=== PATIENT | male | born 1965 | race American Indian/Alaskan Native ===

== ENCOUNTER 2020-03-17 22:51 | Inpatient (IN) | payer BC ==
[2020-03-18] MEDS ORDERED: ACETAMINOPHEN 325 MG TAB ONE (00:36)
[2020-03-18] MEDS ORDERED: ACETAMINOPHEN 325 MG TAB PO ONE (00:36)
--- NOTE | 2020-03-18 01:35 | XRay Report ---
CHEST 1 VIEW INDICATION / CLINICAL INFORMATION: Chest Pain. COMPARISON: None available. FINDINGS: SUPPORT DEVICES: None. HEART / MEDIASTINUM: No significant abnormality. LUNGS / PLEURA: Scattered bilateral pulmonary opacities are present, nonspecific. Certainly, viral pn eumonia is a strong consideration. No pneumothorax. ADDITIONAL FINDINGS: No significant additional findings. IMPRESSION: 1. Bilateral scattered pulmonary opacities. This is certainly worrisome for viral pneumonia and clin ical correlation is recommended. Signer Name: Erika Snow MD Signed: 03/18/2020 1:30 AM Workstation Name: [id number]
[2020-03-18 02:15] LABS: Alanine Aminotransferase 13 units/L (7-56); Albumin 3.9 g/dL (3.9-5); BUN/Creatinine Ratio 16; Blood Urea Nitrogen 21 mg/dL (9-20); Calcium 8.2 mg/dL (8.4-10.2); Hemolysis Index 11
[2020-03-18 02:17] LABS: Basophils % (Auto) 0.4 % (0.0-1.8); Hematocrit 46.8 % (35.5-45.6); Hemoglobin 14.9 gm/dl (11.8-15.2); Lymphocytes # (Auto) 0.7 K/mm3 (1.2-5.4); Lymphocytes % (Auto) 16.1 % (13.4-35.0); Mean Corpuscular HGB Conc 32 % (32-34); Mean Corpuscular Volume 71 fl (84-94); Monocytes # (Auto) 0.4 K/mm3 (0.0-0.8); Monocytes % (Auto) 10.7 % (0.0-7.3); Platelet Count 94 K/mm3 (140-440); Red Blood Count 6.56 M/mm3 (3.65-5.03)
--- NOTE | 2020-03-18 02:21 | Emergency Department Report ---
ED Shortness of Breath HPI - General Chief Complaint: Upper Respiratory Infection Stated Complaint: TROUBLE BREATHING Time Seen by Provider: 03/18/20 02:14 Source: patient Mode of arrival: Ambulatory Limitations: No Limitations - History of Present Illness Initial Comments: 54-year-old male, history of hypertension and diabetes, presents to ED with Covi d-like symptoms. Patient reports fever, body aches, cough, shortness of breath, chest pain x2 days. 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 Patient has not been tested for Covid. He denies any vomiting or diarrhea. MD Complaint: shortness of breath -: days(s) (2) Severity: moderate Consistency: constant Improves With: rest Worsens With: exertion Context: recent URI Associated Symptoms: chest pain, fever, cough Treatments Prior to Arrival: none - Related Data Home Oxygen Therapy: No Home Medications Medication Instructions Recorded Confirmed Last Taken Amlodipine Besylate 10 mg PO DAILY 10/06/15 05/11/18 02/28/18 Clonidine HCl [Kapvay] 0.1 mg PO DAILY 10/06/15 10/27/15 10/26/15 Metformin HCl 500 mg PO DAILY 10/06/15 05/11/18 02/28/18 Allergies Allergy/AdvReac Type Severity Reaction Status Date / Time iodine AdvReac Severe Swelling Verified 10/06/15 10:59 IOD AdvReac Severe Swelling Uncoded 10/06/15 10:59 SEAFOOD AdvReac Severe Swelling Uncoded 10/06/15 10:59 ED Review of Systems ROS: Stated complaint: TROUBLE BREATHING Other details as noted in HPI Comment: All other systems reviewed and negative Constitutional: fever Respiratory: cough, shortness of breath Cardiovascular: chest pain Gastrointestinal: denies: vomiting, diarrhea Musculoskeletal: myalgia ED Past Medical Hx - Past Medical History Hx Hypertension: Yes Hx Diabetes: Yes Hx GERD: Yes - Surgical History Hx Appendectomy: Yes (1977) - Social History Smoking Status: Never Smoker Substance Use Type: None - Medications Home Medications: Home Medications Medication Instructions Recorded Confirmed Last Taken Type Amlodipine Besylate 10 mg PO DAILY 10/06/15 05/11/18 02/28/18 History Clonidine HCl [Kapvay] 0.1 mg PO DAILY 05/31/16 06/21/16 06/20/16 History Metformin HCl 500 mg PO DAILY 10/06/15 05/11/18 02/28/18 History ED Physical Exam - General Limitations: No Limitations General appearance: alert, in no apparent distress - Head Head exam: Present: atraumatic, normocephalic - Eye Eye exam: Present: normal appearance - ENT ENT exam: Present: mucous membranes moist - Neck Neck exam: Present: normal inspection - Respiratory Respiratory exam: Present: normal lung sounds bilaterally. Absent: respiratory distress - Cardiovascular Cardiovascular Exam: Present: normal rhythm, tachycardia - GI/Abdominal GI/Abdominal exam: Present: soft. Absent: distended, tenderness - Extremities Exam Extremities exam: Present: normal inspection - Neurological Exam Neurological exam: Present: alert, oriented X3 - Psychiatric Psychiatric exam: Present: normal affect, normal mood - Skin Skin exam: Present: warm, dry, intact, normal color ED Course Vital Signs 03/18/20 03/18/20 03/18/20 00:32 02:30 03:19 Temperature 101.0 F H 98.6 F Pulse Rate 103 H 97 H Respiratory 16 18 20 Rate Blood Pressure 143/74 Blood Pressure 146/83 [Right] O2 Sat by Pulse 94 97 92 Oximetry ED Medical Decision Making - Lab Data Result diagrams: 03/18/20 01:10 03/18/20 02:51 - EKG Data -: EKG Interpreted by Mt EKG shows normal: sinus rhythm, axis, intervals, QRS complexes Rate: normal - EKG Data Interpretation: other (Flattened T waves diffusely) - Radiology Data Radiology results: report reviewed, image reviewed - Medical Decision Making 54-year-old male presents to ED with Covid-like symptoms. Chest x-ray shows bilateral pneumonia. Patient O2 sats 92% on room air. He is in no respiratory distress. Patient given Rocephin, azithromycin, Decadron. He will be admitted to hospitalist for further management. - Differential Diagnosis COVID-19, pneumonia, ACS Critical care attestation.: If time is entered above; I have spent that time in minutes in the direct care of this critically ill patient, excluding procedure time. ED Disposition Clinical Impression: Hypokalemia, Hypoxia, Pneumonia, Suspected COVID-19 virus infection Disposition: OP ADMIT IP TO THIS HOSP Is pt being admited?: Yes Condition: Stable Time of Disposition: 03:38
[2020-03-18] MEDS ORDERED: POTASSIUM CHLORIDE ER 20 MEQ TAB PO ONE (02:27)
[2020-03-18] MEDS ORDERED: cefTRIAXone/NS 1 GM/50 ML 1 GM/50 ML BAG IV ONE (02:43)
[2020-03-18] MEDS ORDERED: AZITHROMYCIN 250 MG TAB PO ONE (02:43)
[2020-03-18] MEDS ORDERED: DEXAMETHASONE 4 MG TAB PO ONE (03:35)
--- NOTE | 2020-03-18 03:49 | History and Physical Report ---
History of Present Illness Date of examination: 03/18/20 Date of admission: 03/18/20 Chief complaint: shortness of breath History of present illness: This is a 54-year-old male who presents to ED with Covid-like symptoms including shortness of breath. He has history of hypertension and diabetes. Patient reports fever, body aches, cough, shortness of breath, chest pain for 2 days. 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 Patient has not been tested for Covid. patient seen at bedside. he denies tobacco and illicit drug use. He denies any vomiting or diarrhea. ED Work up shows: WBC 4.2, hemoglobin 14.9, potassium 2.9, sodium 137, C02 25, Cr 1.3 and troponin 0.010 Chest x-ray shows-Bilateral scattered opacity likely 2/2 to viral PNA Past History Past Medical History: diabetes, hypertension Past Surgical History: No surgical history Social history: no significant social history Family history: no significant family history Medications and Allergies Allergies Allergy/AdvReac Type Severity Reaction Status Date / Time iodine AdvReac Severe Swelling Verified 10/06/15 10:59 IOD AdvReac Severe Swelling Uncoded 10/06/15 10:59 SEAFOOD AdvReac Severe Swelling Uncoded 10/06/15 10:59 Home Medications Medication Instructions Recorded Confirmed Last Taken Type Amlodipine Besylate 10 mg PO DAILY 10/06/15 05/11/18 02/28/18 History Clonidine HCl [Kapvay] 0.1 mg PO DAILY 10/06/15 10/27/15 10/26/15 History Metformin HCl 500 mg PO DAILY 10/06/15 05/11/18 02/28/18 History Review of Systems Respiratory: cough, shortness of breath, respiratory infections Exam - Constitutional Vitals: Temp Pulse Resp BP Pulse Ox 98.6 F 97 H 20 146/83 92 03/18/20 02:30 03/18/20 02:30 03/18/20 03:19 03/18/20 02:30 03/18/20 03:19 General appearance: Present: mild distress - EENT Eyes: Present: PERRL ENT: hearing intact, clear oral mucosa - Neck Neck: Present: supple, normal ROM - Respiratory Respiratory effort: normal, other (cough and shortness of breath) Respiratory: bilateral: diminished - Cardiovascular Heart rate: 87 Heart Sounds: Present: S1 & S2. Absent: rub, click - Extremities Extremities: pulses symmetrical, No edema Peripheral Pulses: within normal limits - Abdominal General gastrointestinal: Present: soft, non-tender, non-distended, normal bowel sounds Male genitourinary: Present: normal - Integumentary Integumentary: Present: clear, warm, dry - Musculoskeletal Musculoskeletal: gait normal, strength equal bilaterally - Psychiatric Psychiatric: appropriate mood/affect, intact judgment & insight - Neurologic Neurologic: CNII-XII intact, moves all extremities - Allied Health Allied health notes reviewed: nursing HEART Score - HEART Score Troponin: Troponin T < 0.010 ng/mL (0.00-0.029) 03/18/20 01:10 Results - Labs CBC & Chem 7: 03/18/20 01:10 03/18/20 02:51 Labs: Abnormal lab results 03/18/20 03/18/20 Range/Units 01:10 01:10 WBC 4.2 L (4.5-11.0) K/mm3 RBC 6.56 H (3.65-5.03) M/mm3 Hct 46.8 H (35.5-45.6) % MCV 71 L (84-94) fl MCH 23 L (28-32) pg Plt Count 94 L (140-440) K/mm3 [place] % (Auto) 10.7 H (0.0-7.3) % Lymph # (Auto) 0.7 L (1.2-5.4) K/mm3 Seg Neutrophils % 72.8 H (40.0-70.0) % Potassium 2.9 L* (3.6-5.0) mmol/L Chloride 96.5 L (98-107) mmol/L BUN 21 H (9-20) mg/dL Calcium 8.2 L (8.4-10.2) mg/dL Assessment and Plan - Patient Problems (1) Hypokalemia Current Visit: Yes Status: Acute Plan to address problem: replete potassium Am lab-monitor electrolytes (2) Hypoxia Current Visit: Yes Status: Acute Plan to address problem: likely 2/2 to respiratory infection/Viral/bacteria oxygen supplement PRN-seen on room air ABG and bronchodilators Encourage incentive spirometer (3) Pneumonia Current Visit: Yes Status: Acute Plan to address problem: ? cause Covid virus/bacteria Consult ID Start Azithromycin and rocephine Check inflammatory makers (4) Suspected COVID-19 virus infection Current Visit: Yes Status: Acute Plan to address problem: check covid virus [id number] with result Consult ID-will consult investigative research specialist if positive for covid Check inflammatory makers-didimer, CRP, LDH and ferritin Will start experimental therapy for covid if needed (5) Essential (primary) hypertension Current Visit: Yes Status: Acute Plan to address problem: Monitor blood pressure resume home bp med Adjust for optimum bp control (6) Diabetes Current Visit: Yes Status: Acute Plan to address problem: monitor blood sugar with SSI Hold metformin-resume post D/c Check HGA1c (7) DVT prophylaxis Current Visit: Yes Status: Acute Plan to address problem: sq Lovenox
[2020-03-18] MEDS ORDERED: amLODIPine 5 MG TAB PO ONE (03:52)
[2020-03-18 04:13] LABS: C-Reactive Protein 2.5 mg/dL (0.00-1.30)
[2020-03-18] MEDS ORDERED: ALUM-MAG HYDROXIDE-SIMETHICONE 200-200-20MG/5ML ORAL LIQD 30 ML PO PRN (04:27)
[2020-03-18] MEDS ORDERED: ONDANSETRON 4 MG/2 ML INJ IV PRN (04:27)
[2020-03-18] MEDS ORDERED: traMADol 50 MG TAB PO PRN (04:29)
[2020-03-18] MEDS ORDERED: DEXAMETHASONE 4 MG TAB ONE (05:15)
[2020-03-18] MEDS ORDERED: amLODIPine 5 MG TAB ONE (05:15)
[2020-03-18] MEDS: INSULIN LISPRO 100 UNIT/ML VIAL 3 mL SUB-Q SCH ×2 (07:54→12:07)
[2020-03-18] MEDS ORDERED: ENOXAPARIN 60 MG/0.6 ML INJ SUB-Q SCH (10:00)
[2020-03-18] MEDS ORDERED: cloNIDine 0.1 MG TAB ONE (11:58)
[2020-03-18] MEDS ORDERED: ENOXAPARIN 40 MG/0.4 ML INJ SUB-Q ONE (11:58)
[2020-03-18] MEDS ORDERED: INSULIN LISPRO 100 UNIT/ML VIAL 3 mL SUB-Q ONE (12:00)
[2020-03-18] MEDS: cloNIDine 0.1 MG TAB PO SCH (12:07)
[2020-03-18] MEDS: ENOXAPARIN 40 MG/0.4 ML INJ SUB-Q SCH (12:08)
--- NOTE | 2020-03-18 14:40 | Event Note ---
Date: 03/18/20 Patient seen and examined, resting comfortable. No new complaints. Continues on oxygen. Will monitor Plt due to thrombocytopenia, Patient advised of COVID19 testing result. Repeat Potassium studies Pending. Will continue to monitor closely.
[2020-03-18] MEDS ORDERED: cefTRIAXone/NS 1 GM/50 ML 1 GM/50 ML BAG IV SCH (15:00)
[2020-03-18] MEDS ORDERED: PNEUMOCOCCAL 23 Valent 0.5 ML VIAL IM ONE (20:12)
[2020-03-18] MEDS ORDERED: AZITHROMYCIN 500 MG in SODIUM CHLORIDE 0.9% 250ML 250 ML IV SCH (22:00)
[2020-03-18] MEDS: traZODone 50 MG TAB PO SCH (22:35)
[2020-03-19] MEDS: INSULIN LISPRO 100 UNIT/ML VIAL 3 mL SUB-Q SCH ×5 (00:14→22:25)
[2020-03-19] MEDS: cefTRIAXone/NS 2 GM/100 ML 2 GM/100 ML BAG IV SCH ×2 (00:20→21:05)
[2020-03-19 03:08] LABS: Bilirubin,Urine NEG (Negative); Blood,Urine LG (Negative); Color,Urine Amber (Yellow); Mucus,Urine FEW /HPF
[2020-03-19 03:09] LABS: Protein,Urine >500 mg/dL (Negative)
[2020-03-19 06:21] LABS: Hematocrit 44.5 % (35.5-45.6); Hemoglobin 14.1 gm/dl (11.8-15.2); Mean Corpuscular HGB Conc 32 % (32-34); Mean Corpuscular Volume 71 fl (84-94); Red Blood Count 6.24 M/mm3 (3.65-5.03)
[2020-03-19 06:35] LABS: Platelet Count 91 K/mm3 (140-440)
[2020-03-19 06:39] LABS: BUN/Creatinine Ratio 22; Blood Urea Nitrogen 24 mg/dL (9-20); Calcium 7.8 mg/dL (8.4-10.2); Hemolysis Index 11
--- NOTE | 2020-03-19 08:57 | Progress Note ---
Assessment and Plan Assessment and plan: This is a 54-year-old male who presents to ED with Covid-like symptoms including shortness of breath. He has history of hypertension and diabetes. Patient reports fever, body aches, cough, shortness of breath, chest pain for 2 days. 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 Patient has not been tested for Covid. patient seen at bedside. he denies tobacco and illicit drug use. He denies any vomiting or diarrhea. ED Work up shows: WBC 4.2, hemoglobin 14.9, potassium 2.9, sodium 137, C02 25, Cr 1.3 and troponin 0.010 Chest x-ray shows-Bilateral scattered opacity likely 2/2 to viral PNA COVID19 TESTING + 03/19: Continue supportive care, pulmonary consult considering respiratory distress on room air. await ID input on possible Remdesivir considering shortage. Replace Potassium, continue to monitor thrombcytopenia COVID19 Pneumonia Hypoxic Respiratory Failure- Acute. Currently on 2 Liters Tachycardia ?deconditioning vs Pulmonary disease contribution Hypokalemia- Replace. Hypertension Morbid Obesity DM type 2 Plan Supportive care Continue steroids, Monitor oxygen saturation for possible initation of Remdesivir and Pulm consult ID consult and Antibiotics recommendations Continue to monitor inflammatory markers Weight loss counselling Accucheck considering steroids as mainstay therapy, currently on low dose sliding scale. Patient on metformin outpatient DVT/GI prophy Plan of care discussed with patient Encouraged ambulation in the room and ambient oxygen monitoring with daily 6 mins walk with nursing or RT History Interval history: Patient seen and examined, reported shortness of breath while ambulating on room air today, otherwise felt well sleeping prone Hospitalist Physical - Constitutional Vitals: Temp Pulse Resp BP Pulse Ox 99.5 F 103 H 18 105/60 94 03/19/20 04:02 03/19/20 04:02 03/19/20 04:02 03/19/20 04:02 03/19/20 04:02 General appearance: Present: mild distress - EENT Eyes: Present: PERRL, EOM intact ENT: hearing intact, clear oral mucosa - Neck Neck: Present: supple, normal ROM - Respiratory Respiratory effort: normal Respiratory: bilateral: CTA - Cardiovascular Rhythm: regular Heart Sounds: Present: S1 & S2. Absent: systolic murmur, diastolic murmur - Extremities Extremities: no ischemia, pulses intact, No edema, normal temperature, Full ROM Peripheral Pulses: within normal limits - Abdominal General gastrointestinal: soft, non-tender, non-distended, normal bowel sounds - Integumentary Integumentary: Present: clear, warm, dry - Psychiatric Psychiatric: appropriate mood/affect, intact judgment & insight - Neurologic Neurologic: CNII-XII intact, moves all extremities - Allied Health Allied health notes reviewed: nursing HEART Score - HEART Score Troponin: Troponin T < 0.010 ng/mL (0.00-0.029) 03/18/20 09:14 Results - Labs CBC & Chem 7: 03/19/20 06:08 03/19/20 06:08 Labs: Laboratory Last Values WBC 5.2 K/mm3 (4.5-11.0) 03/19/20 06:08 RBC 6.24 M/mm3 (3.65-5.03) H 03/19/20 06:08 Hgb 14.1 gm/dl (11.8-15.2) 03/19/20 06:08 Hct 44.5 % (35.5-45.6) 03/19/20 06:08 MCV 71 fl (84-94) L 03/19/20 06:08 MCH 23 pg (28-32) L 03/19/20 06:08 MCHC 32 % (32-34) 03/19/20 06:08 RDW 15.0 % (13.2-15.2) 03/19/20 06:08 Plt Count 91 K/mm3 (140-440) L 03/19/20 06:08 Lymph % (Auto) 16.1 % (13.4-35.0) 03/18/20 01:10 [place] % (Auto) 10.7 % (0.0-7.3) H 03/18/20 01:10 Eos % (Auto) 0.0 % (0.0-4.3) 03/18/20 01:10 Baso % (Auto) 0.4 % (0.0-1.8) 03/18/20 01:10 Lymph # (Auto) 0.7 K/mm3 (1.2-5.4) L 03/18/20 01:10 [place] # (Auto) 0.4 K/mm3 (0.0-0.8) 03/18/20 01:10 Eos # (Auto) 0.0 K/mm3 (0.0-0.4) 03/18/20 01:10 Baso # (Auto) 0.0 K/mm3 (0.0-0.1) 03/18/20 01:10 Seg Neutrophils % 72.8 % (40.0-70.0) H 03/18/20 01:10 Seg Neutrophils # 3.0 K/mm3 (1.8-7.7) 03/18/20 01:10 D-Dimer 216.13 ng/mlDDU (0-234) 03/18/20 04:38 Sodium 141 mmol/L (137-145) 03/19/20 06:08 Potassium 3.3 mmol/L (3.6-5.0) L 03/19/20 06:08 Chloride 99.4 mmol/L (98-107) 03/19/20 06:08 Carbon Dioxide 33 mmol/L (22-30) H D 03/19/20 06:08 Anion Gap 12 mmol/L 03/19/20 06:08 BUN 24 mg/dL (9-20) H 03/19/20 06:08 Creatinine 1.1 mg/dL (0.8-1.3) 03/19/20 06:08 Estimated GFR > 60 ml/min 03/19/20 06:08 BUN/Creatinine Ratio 22 % 03/19/20 06:08 Glucose 109 mg/dL (75-100) H 03/19/20 06:08 POC Glucose 94 mg/dL (70-105) 03/19/20 08:06 Hemoglobin A1c 5.7 % (4-6) 03/18/20 04:38 Calcium 7.8 mg/dL (8.4-10.2) L 03/19/20 06:08 Ferritin 608.5 ng/mL (30.0-300.0) H 03/18/20 02:51 Total Bilirubin 1.10 mg/dL (0.1-1.2) 03/18/20 01:10 AST 35 units/L (5-40) 03/18/20 01:10 ALT 13 units/L (7-56) 03/18/20 01:10 Alkaline Phosphatase 63 units/L (35-129) 03/18/20 01:10 Lactate Dehydrogenase 383 units/L (91-180) H 03/18/20 02:51 Troponin T < 0.010 ng/mL (0.00-0.029) 03/18/20 09:14 C-Reactive Protein 2.50 mg/dL (0.00-1.30) H 03/18/20 02:51 Total Protein 7.9 g/dL (6.3-8.2) 03/18/20 01:10 Albumin 3.9 g/dL (3.9-5) 03/18/20 01:10 Albumin/Globulin Ratio 1.0 % 03/18/20 01:10 Procalcitonin < 0.05 ng/mL (<0.15) 03/18/20 02:51 Urine Color Sandra (Yellow) 03/19/20 02:38 Urine Turbidity Clear (Clear) 03/19/20 02:38 Urine pH 6.0 (5.0-7.0) 03/19/20 02:38 Ur Specific [place] 1.027 (1.003-1.030) 03/19/20 02:38 Urine Protein >500 mg/dL (Negative) 03/19/20 02:38 Urine Glucose (UA) Neg mg/dL (Negative) 03/19/20 02:38 Urine Ketones Neg mg/dL (Negative) 03/19/20 02:38 Urine Blood Lg (Negative) 03/19/20 02:38 Urine Nitrite Neg (Negative) 03/19/20 02:38 Urine Bilirubin Neg (Negative) 03/19/20 02:38 Urine Urobilinogen 4.0 mg/dL (<2.0) 03/19/20 02:38 Ur Leukocyte Esterase Neg (Negative) 03/19/20 02:38 Urine WBC (Auto) 3.0 /HPF (0.0-6.0) 03/19/20 02:38 Urine RBC (Auto) 1.0 /HPF (0.0-6.0) 03/19/20 02:38 U Epithel Cells (Auto) 2.0 /HPF (0-13.0) 03/19/20 02:38 Urine Mucus Few /HPF 03/19/20 02:38 Coronavirus (PCR) Positive (Negative) A 03/18/20 08:42 Microbiology: Microbiology 03/18/20 03:52 Peripheral/Venous Blood Culture - Preliminary NO GROWTH AFTER 24 HOURS 03/18/20 04:38 Peripheral/Venous Blood Culture - Preliminary NO GROWTH AFTER 24 HOURS Perez/IV: Voiding Method Urinal IV Catheter Type [Left INT / Saline Lock Antecubital] Active Medications - Current Medications Current Medications: Generic Name Dose Route Start Last Admin Trade Name Freq PRN Reason Stop Dose Admin Al Hydrox/Mg Hydrox/Simethicone 30 ml 03/18/20 04:27 Alum-Mag Hydrox-Simeth [id number]/5ml PO Q4H PRN Indigestion Clonidine HCl 0.1 mg 03/18/20 10:00 03/18/20 12:07 Catapres PO Not Given Q24HR RUTH Enoxaparin Sodium 40 mg 03/18/20 10:00 03/18/20 12:08 Enoxaparin SUB-Q 40 mg QDAY@1000 RUTH Administration Protocol Azithromycin 500 mg/ Sodium 250 mls @ 250 mls/hr 03/18/20 22:00 03/19/20 00:20 Chloride IV 250 mls/hr Q24HR@2200 [facility] Administration Protocol Ceftriaxone Sodium 2 gm in 100 mls @ 200 mls/hr 03/18/20 22:00 03/19/20 00:20 Rocephin/Ns 2 Gm/100 Ml IV 200 mls/hr Q24HR@2200 [facility] Administration Insulin Human Lispro 0 unit 03/18/20 07:30 03/19/20 08:01 Humalog SUB-Q Not Given ACHS [facility] Protocol Labetalol HCl 10 mg 03/18/20 04:44 Labetalol IV Q6HR PRN Hypertension Ondansetron HCl 4 mg 03/18/20 04:27 Zofran IV Q8H PRN Nausea And Vomiting Tramadol HCl 50 mg 03/18/20 04:29 03/18/20 22:32 Ultram PO 50 mg Q6H PRN Administration Pain, Moderate (4-6) Trazodone HCl 50 mg 03/18/20 22:00 03/18/20 22:35 Desyrel PO 50 mg QHS RUTH Administration
[2020-03-19] MEDS ORDERED: POTASSIUM CHLORIDE ER 20 MEQ TAB PO NR (09:30)
[2020-03-19] MEDS: DEXAMETHASONE 4 MG TAB PO SCH (10:20)
[2020-03-19] MEDS: ENOXAPARIN 40 MG/0.4 ML INJ SUB-Q SCH (10:20)
[2020-03-19] MEDS: cloNIDine 0.1 MG TAB PO SCH (10:21)
--- NOTE | 2020-03-19 17:07 | Consultation ---
History of Present Illness - Reason for Consult Consult date: 03/19/20 COVID-19 infection Requesting physician: MARIANA SIN - History of Present Illness 54 years old male with history of hypertension and diabetes mellitus, admitted on due to 2-day history of fever, body aches, and shortness of breath, cough, chest pain. 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 In the ED, initial temperature 103, initial WBC 4.2. Creatinine 1.3. Chest x-ray with bilateral scattered opacities. Review of Systems: reviewed ED and H&P notes. Limited due to PPE conservation strategy Past History Past Medical History: diabetes, hypertension Past Surgical History: No surgical history Social history: no significant social history Family history: no significant family history Medications and Allergies Allergies Allergy/AdvReac Type Severity Reaction Status Date / Time iodine AdvReac Severe Swelling Verified 10/06/15 10:59 IOD AdvReac Severe Swelling Uncoded 10/06/15 10:59 SEAFOOD AdvReac Severe Swelling Uncoded 10/06/15 10:59 Home Medications Medication Instructions Recorded Confirmed Last Taken Type Amlodipine Besylate 10 mg PO DAILY 10/06/15 03/18/20 03/17/20 History Clonidine HCl [Kapvay] 0.1 mg PO DAILY 10/06/15 03/18/20 03/17/20 History Metformin HCl 500 mg PO DAILY 10/06/15 03/18/20 02/28/18 History Active Meds: Active Medications Al Hydrox/Mg Hydrox/Simethicone (Alum-Mag Hydrox-Simeth [phone]/5ml) 30 ml PO Q4H PRN PRN Reason: Indigestion Azithromycin (Zithromax) 500 mg PO QHS [facility] Stop: 03/21/20 22:01 Clonidine HCl (Catapres) 0.1 mg PO Q24HR RUTH Last Admin: 03/19/20 10:21 Dose: Not Given Documented by: Dexamethasone (Decadron) 6 mg PO DAILY RUTH Stop: 03/28/20 10:01 Last Admin: 03/19/20 10:20 Dose: 6 mg Documented by: Enoxaparin Sodium (Enoxaparin) 40 mg SUB-Q QDAY@1000 RUTH; Protocol Last Admin: 03/19/20 10:20 Dose: 40 mg Documented by: Ceftriaxone Sodium (Rocephin/Ns 2 Gm/100 Ml) 2 gm in 100 mls @ 200 mls/hr IV Q24HR@2200 [facility] Last Admin: 03/19/20 00:20 Dose: 200 mls/hr Documented by: Insulin Human Lispro (Humalog) 0 unit SUB-Q ACHS [facility]; Protocol Last Admin: 03/19/20 12:43 Dose: Not Given Documented by: Labetalol HCl (Labetalol) 10 mg IV Q6HR PRN PRN Reason: Hypertension Ondansetron HCl (Zofran) 4 mg IV Q8H PRN PRN Reason: Nausea And Vomiting Potassium Chloride (K-Dur) 20 meq PO Q2HR [facility] Stop: 03/19/20 18:01 Tramadol HCl (Ultram) 50 mg PO Q6H PRN PRN Reason: Pain, Moderate (4-6) Last Admin: 03/18/20 22:32 Dose: 50 mg Documented by: Trazodone HCl (Desyrel) 50 mg PO QHS [facility] Last Admin: 03/18/20 22:35 Dose: 50 mg Documented by: Physical Examination - Physical Exam Narrative exam: Physical Exam: reviewed ED and hospitalist notes, limited due to conservation of PPE and decrease risk of transmission. General appearance: limited due to conservation of PPE Eyes: limited due to conservation of PPE HENT: Atraumatic; limited due to conservation of PPE Lungs: limited due to conservation of PPE CV: limited due to conservation of PPE Abdomen: limited due to conservation of PPE Extremities: limited due to conservation of PPE Skin: limited due to conservation of PPE Psych: limited due to conservation of PPE Neuro: limited due to conservation of PPE - Constitutional Vitals: Vital Signs Temp Pulse Resp BP Pulse Ox 97.6 F 108 H 20 143/86 90 03/19/20 16:45 03/19/20 16:45 03/19/20 16:45 03/19/20 16:45 03/19/20 16:45 Temperature -Last 24 Hours Temperature 97.6 F Temperature 98.0 F Temperature 99.5 F Temperature 97.7 F Temperature 98.1 F Results - Labs CBC & Chem 7: 03/19/20 06:08 03/19/20 06:08 Labs: Abnormal lab results 11/11/20 11/12/20 11/12/20 Range/Units 17:43 06:08 06:08 RBC 6.24 H (3.65-5.03) M/mm3 MCV 71 L (84-94) fl MCH 23 L (28-32) pg Plt Count 91 L (140-440) K/mm3 Potassium 3.3 L (3.6-5.0) mmol/L Carbon Dioxide 33 H D (22-30) mmol/L BUN 24 H (9-20) mg/dL Glucose 109 H (75-100) mg/dL POC Glucose 152 H (70-105) mg/dL Calcium 7.8 L (8.4-10.2) mg/dL 11 Range/Units 12:43 RBC (3.65-5.03) M/mm3 MCV (84-94) fl MCH (28-32) pg Plt Count (140-440) K/mm3 Potassium (3.6-5.0) mmol/L Carbon Dioxide (22-30) mmol/L BUN (9-20) mg/dL Glucose (75-100) mg/dL POC Glucose 128 H (70-105) mg/dL Calcium (8.4-10.2) mg/dL Assessment and Plan Cultures: Blood culture no growth today SARS CoV2 PCR positive Assessment: 54 years old male with history of hypertension and diabetes mellitus, admitted on due to 2-day history of fever, body aches, and shortness of breath, cough, chest pain, patient exposed to COVID-19 at work: #Sepsis: Secondary to COVID-19 pneumonia. #Severe COVID pneumonia: Markers are not elevated. #Acute hypoxemic respiratory failure: Currently on 2 L nasal cannula. #MIGUEL: from COVID, improving. Recommendations: Continue dexamethasone 6 mg IV/PO daily for 10 days Start Remdesivir 200 mg IV q day x 1 day followed by 100 mg IV q day x 4 days (CrCl>30. Order placed) Monitor inflammatory markers - ferritin, Ddimer, CRP, LDH Stop ceftriaxone and azithromycin, procalcitonin <0.25 ng/mL Monitor liver function test on Remdesivir Continue anticoagulation per System Protocol Prone positioning as possible All laboratory, cultures and imaging were reviewed Will follow Zunilda Patel MD Infectious Diseases [employer] [facility] M [phone] O [phone]
[2020-03-19] MEDS: POTASSIUM CHLORIDE ER 20 MEQ TAB PO SCH ×3 (17:12→20:20)
[2020-03-19] MEDS ORDERED: REMDESIVIR 200 MG in SODIUM CHLORIDE 0.9% 250ML 250 ML IV ONE (18:30)
[2020-03-19] MEDS ORDERED: REMDESIVIR 100 MG VIAL IV ONE (18:30)
[2020-03-19] MEDS: SODIUM CHLORIDE 0.9% 50 ML IVPB IV SCH (18:39)
[2020-03-19] MEDS: traZODone 50 MG TAB PO SCH (21:06)
[2020-03-19] MEDS ORDERED: AZITHROMYCIN 250 MG TAB PO SCH (22:00)
[2020-03-19] MEDS ORDERED: ACETAMINOPHEN 325 MG TAB PO PRN (22:22)
--- NOTE | 2020-03-20 06:23 | Progress Note ---
Assessment and Plan Assessment and plan: This is a 54-year-old male who presents to ED with Covid-like symptoms including shortness of breath. He has history of hypertension and diabetes. Patient reports fever, body aches, cough, shortness of breath, chest pain for 2 days. 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 Patient has not been tested for Covid. patient seen at bedside. he denies tobacco and illicit drug use. He denies any vomiting or diarrhea. ED Work up shows: WBC 4.2, hemoglobin 14.9, potassium 2.9, sodium 137, C02 25, Cr 1.3 and troponin 0.010 Chest x-ray shows-Bilateral scattered opacity likely 2/2 to viral PNA COVID19 TESTING + 03/19: Continue supportive care, pulmonary consult considering respiratory distress on room air. await ID input on possible Remdesivir considering shortage. Replace Potassium, continue to monitor thrombcytopenia 03/20: Awaiting oxygen eval. noted low grade fever last night. Continue current therapy. ID input noted COVID19 Pneumonia Hypoxic Respiratory Failure- Acute. Currently on 2 Liters Tachycardia ?deconditioning vs Pulmonary disease contribution Hypokalemia- Replace. Hypertension Morbid Obesity DM type 2 Plan Supportive care Continue steroids, Monitor oxygen saturation for possible initation of Remdesivir and Pulm consult ID consult and Antibiotics recommendations Continue to monitor inflammatory markers Weight loss counselling Accucheck considering steroids as mainstay therapy, currently on low dose sliding scale. Patient on metformin outpatient DVT/GI prophy Plan of care discussed with patient Encouraged ambulation in the room and ambient oxygen monitoring with daily 6 mins walk with nursing or RT Hospitalist Physical - Constitutional Vitals: Temp Pulse Resp BP Pulse Ox 98.7 F 94 H 18 125/82 92 03/20/20 05:06 03/20/20 05:06 03/20/20 05:06 03/20/20 05:06 03/20/20 05:06 General appearance: Present: mild distress HEART Score - HEART Score Troponin: Troponin T < 0.010 ng/mL (0.00-0.029) 03/18/20 09:14 Results - Labs CBC & Chem 7: 03/19/20 06:08 03/19/20 06:08 Labs: Laboratory Last Values WBC 5.2 K/mm3 (4.5-11.0) 03/19/20 06:08 RBC 6.24 M/mm3 (3.65-5.03) H 03/19/20 06:08 Hgb 14.1 gm/dl (11.8-15.2) 03/19/20 06:08 Hct 44.5 % (35.5-45.6) 03/19/20 06:08 MCV 71 fl (84-94) L 03/19/20 06:08 MCH 23 pg (28-32) L 03/19/20 06:08 MCHC 32 % (32-34) 03/19/20 06:08 RDW 15.0 % (13.2-15.2) 03/19/20 06:08 Plt Count 91 K/mm3 (140-440) L 03/19/20 06:08 Lymph % (Auto) 16.1 % (13.4-35.0) 03/18/20 01:10 [place] % (Auto) 10.7 % (0.0-7.3) H 03/18/20 01:10 Eos % (Auto) 0.0 % (0.0-4.3) 03/18/20 01:10 Baso % (Auto) 0.4 % (0.0-1.8) 03/18/20 01:10 Lymph # (Auto) 0.7 K/mm3 (1.2-5.4) L 03/18/20 01:10 [place] # (Auto) 0.4 K/mm3 (0.0-0.8) 03/18/20 01:10 Eos # (Auto) 0.0 K/mm3 (0.0-0.4) 03/18/20 01:10 Baso # (Auto) 0.0 K/mm3 (0.0-0.1) 03/18/20 01:10 Seg Neutrophils % 72.8 % (40.0-70.0) H 03/18/20 01:10 Seg Neutrophils # 3.0 K/mm3 (1.8-7.7) 03/18/20 01:10 D-Dimer 216.13 ng/mlDDU (0-234) 03/18/20 04:38 Sodium 141 mmol/L (137-145) 03/19/20 06:08 Potassium 3.3 mmol/L (3.6-5.0) L 03/19/20 06:08 Chloride 99.4 mmol/L (98-107) 03/19/20 06:08 Carbon Dioxide 33 mmol/L (22-30) H D 03/19/20 06:08 Anion Gap 12 mmol/L 03/19/20 06:08 BUN 24 mg/dL (9-20) H 03/19/20 06:08 Creatinine 1.1 mg/dL (0.8-1.3) 03/19/20 06:08 Estimated GFR > 60 ml/min 03/19/20 06:08 BUN/Creatinine Ratio 22 % 03/19/20 06:08 Glucose 109 mg/dL (75-100) H 03/19/20 06:08 POC Glucose 106 mg/dL (70-105) H 03/19/20 22:41 Hemoglobin A1c 5.7 % (4-6) 03/18/20 04:38 Calcium 7.8 mg/dL (8.4-10.2) L 03/19/20 06:08 Ferritin 608.5 ng/mL (30.0-300.0) H 03/18/20 02:51 Total Bilirubin 1.10 mg/dL (0.1-1.2) 03/18/20 01:10 AST 35 units/L (5-40) 03/18/20 01:10 ALT 13 units/L (7-56) 03/18/20 01:10 Alkaline Phosphatase 63 units/L (35-129) 03/18/20 01:10 Lactate Dehydrogenase 383 units/L (91-180) H 03/18/20 02:51 Troponin T < 0.010 ng/mL (0.00-0.029) 03/18/20 09:14 C-Reactive Protein 2.50 mg/dL (0.00-1.30) H 03/18/20 02:51 Total Protein 7.9 g/dL (6.3-8.2) 03/18/20 01:10 Albumin 3.9 g/dL (3.9-5) 03/18/20 01:10 Albumin/Globulin Ratio 1.0 % 03/18/20 01:10 Procalcitonin < 0.05 ng/mL (<0.15) 03/18/20 02:51 Urine Color Sandra (Yellow) 03/19/20 02:38 Urine Turbidity Clear (Clear) 03/19/20 02:38 Urine pH 6.0 (5.0-7.0) 03/19/20 02:38 Ur Specific [place] 1.027 (1.003-1.030) 03/19/20 02:38 Urine Protein >500 mg/dL (Negative) 03/19/20 02:38 Urine Glucose (UA) Neg mg/dL (Negative) 03/19/20 02:38 Urine Ketones Neg mg/dL (Negative) 03/19/20 02:38 Urine Blood Lg (Negative) 03/19/20 02:38 Urine Nitrite Neg (Negative) 03/19/20 02:38 Urine Bilirubin Neg (Negative) 03/19/20 02:38 Urine Urobilinogen 4.0 mg/dL (<2.0) 03/19/20 02:38 Ur Leukocyte Esterase Neg (Negative) 03/19/20 02:38 Urine WBC (Auto) 3.0 /HPF (0.0-6.0) 03/19/20 02:38 Urine RBC (Auto) 1.0 /HPF (0.0-6.0) 03/19/20 02:38 U Epithel Cells (Auto) 2.0 /HPF (0-13.0) 03/19/20 02:38 Urine Mucus Few /HPF 03/19/20 02:38 Coronavirus (PCR) Positive (Negative) A 03/18/20 08:42 Microbiology: Microbiology 03/18/20 03:52 Peripheral/Venous Blood Culture - Preliminary NO GROWTH AFTER 48 HOURS 03/18/20 04:38 Peripheral/Venous Blood Culture - Preliminary NO GROWTH AFTER 48 HOURS Perez/IV: Voiding Method Toilet IV Catheter Type [Left INT / Saline Lock Antecubital] Active Medications - Current Medications Current Medications: Generic Name Dose Route Start Last Admin Trade Name Freq PRN Reason Stop Dose Admin Acetaminophen 650 mg 03/19/20 22:22 03/19/20 23:04 Tylenol PO 650 mg Q6H PRN Administration Fever >100 Al Hydrox/Mg Hydrox/Simethicone 30 ml 03/18/20 04:27 Alum-Mag Hydrox-Simeth 530-303-93yx/5ml PO Q4H PRN Indigestion Azithromycin 500 mg 03/19/20 22:00 03/19/20 21:06 Zithromax PO 03/21/20 22:01 500 mg QHS [facility] Administration Clonidine HCl 0.1 mg 03/18/20 10:00 03/19/20 10:21 Catapres PO Not Given Q24HR [facility] Dexamethasone 6 mg 03/19/20 10:00 03/19/20 10:20 Decadron PO 03/28/20 10:01 6 mg DAILY [facility] Administration Enoxaparin Sodium 40 mg 03/18/20 10:00 03/19/20 10:20 Enoxaparin SUB-Q 40 mg QDAY@1000 [facility] Administration Protocol Ceftriaxone Sodium 2 gm in 100 mls @ 200 mls/hr 03/18/20 22:00 03/19/20 21:05 Rocephin/Ns 2 Gm/100 Ml IV 200 mls/hr Q24HR@2200 [facility] Administration REMDESIVIR 100 mg/ Sodium 250 mls @ 500 mls/hr 03/20/20 21:00 Chloride IV 03/23/20 21:29 Q24HR@2100 [facility] Insulin Human Lispro 0 unit 03/18/20 07:30 03/19/20 22:25 Humalog SUB-Q Not Given ACHS [facility] Protocol Labetalol HCl 10 mg 03/18/20 04:44 Labetalol IV Q6HR PRN Hypertension Ondansetron HCl 4 mg 03/18/20 04:27 Zofran IV Q8H PRN Nausea And Vomiting Sodium Chloride 50 ml 03/19/20 19:30 03/19/20 18:39 Nacl 0.9% IV 03/23/20 21:31 50 ml 2130 [facility] Administration Tramadol HCl 50 mg 03/18/20 04:29 03/18/20 22:32 Ultram PO 50 mg Q6H PRN Administration Pain, Moderate (4-6) Trazodone HCl 50 mg 03/18/20 22:00 03/19/20 21:06 Desyrel PO 50 mg QHS [facility] Administration
[2020-03-20 06:26] LABS: Hematocrit 43.1 % (35.5-45.6); Hemoglobin 13.8 gm/dl (11.8-15.2); Mean Corpuscular HGB Conc 32 % (32-34); Mean Corpuscular Volume 71 fl (84-94); Red Cell Distribution Width 15.2 % (13.2-15.2)
[2020-03-20 06:27] LABS: Platelet Count 103 K/mm3 (140-440)
[2020-03-20 06:40] LABS: BUN/Creatinine Ratio 27; Blood Urea Nitrogen 24 mg/dL (9-20); Hemolysis Index 12
[2020-03-20] MEDS: INSULIN LISPRO 100 UNIT/ML VIAL 3 mL SUB-Q SCH ×6 (08:51→22:00)
[2020-03-20 09:07] LABS: C-Reactive Protein 9.1 mg/dL (0.00-1.30)
[2020-03-20] MEDS: ENOXAPARIN 40 MG/0.4 ML INJ SUB-Q SCH (10:15)
[2020-03-20] MEDS: cloNIDine 0.1 MG TAB PO SCH (10:15)
[2020-03-20] MEDS: DEXAMETHASONE 4 MG TAB PO SCH (10:15)
--- NOTE | 2020-03-20 11:19 | Progress Note ---
Assessment and Plan Cultures: Blood culture no growth today SARS CoV2 PCR positive Assessment: 54 years old male with history of hypertension and diabetes mellitus, admitted on due to 2-day history of fever, body aches, and shortness of breath, cough, chest pain, patient exposed to COVID-19 at work: #Sepsis: Secondary to COVID-19 pneumonia. #Severe COVID pneumonia: D-dimer normal, ferritin elevated. #Acute hypoxemic respiratory failure: Worsening patient is now on 4 L nasal cannula #MIGUEL: from COVID, improving. Recommendations: -Continue dexamethasone 6 mg IV/PO daily for 10 days -Continue remdesivir day 2 of 5 -Monitor inflammatory markers - ferritin, Ddimer, CRP, LDH -Monitor liver function test on Remdesivir -Continue anticoagulation per System Protocol -Prone positioning as possible -Obtain SARS-CoV-2 IgG to determine if patient is candidate for Covid convalescent plasma All laboratory, cultures and imaging were reviewed Will follow Zunilda Patel MD Infectious Diseases Intrusion Analyst [facility] M [phone] O [phone] Subjective Date of service: 03/20/20 Principal diagnosis: COVID-19 Interval history: Patient is now on 4 L nasal cannula no acute events overnight Objective - Exam Narrative Exam: Physical Exam: reviewed ED and hospitalist notes, limited due to conservation of PPE and decrease risk of transmission. General appearance: limited due to conservation of PPE Eyes: limited due to conservation of PPE HENT: Atraumatic; limited due to conservation of PPE Lungs: limited due to conservation of PPE CV: limited due to conservation of PPE Abdomen: limited due to conservation of PPE Extremities: limited due to conservation of PPE Skin: limited due to conservation of PPE Psych: limited due to conservation of PPE Neuro: limited due to conservation of PPE - Constitutional Vitals: Vital Signs Temp Pulse Resp BP Pulse Ox 98.5 F 95 H 20 105/65 89 03/20/20 11:12 03/20/20 11:12 03/20/20 11:12 03/20/20 11:12 03/20/20 11:12 Temperature -Last 24 Hours Temperature 98.5 F Temperature 98.7 F Temperature 100.1 F Temperature 97.6 F Temperature 98.0 F - Labs CBC & Chem 7: 03/20/20 06:02 03/20/20 07:49 Labs: Abnormal lab results 03/19/20 03/19/20 03/19/20 Range/Units 12:43 17:57 22:41 RBC (3.65-5.03) M/mm3 MCV (84-94) fl MCH (28-32) pg Plt Count (140-440) K/mm3 BUN (9-20) mg/dL Glucose (75-100) mg/dL POC Glucose 128 H 132 H 106 H (70-105) mg/dL Calcium (8.4-10.2) mg/dL Ferritin (30.0-300.0) ng/mL Lactate Dehydrogenase (91-180) units/L C-Reactive Protein (0.00-1.30) mg/dL 03/20/20 03/20/20 03/20/20 Range/Units 06:02 06:02 07:49 RBC 6.10 H (3.65-5.03) M/mm3 MCV 71 L (84-94) fl MCH 23 L (28-32) pg Plt Count 103 L (140-440) K/mm3 BUN 24 H (9-20) mg/dL Glucose 111 H 106 H (75-100) mg/dL POC Glucose (70-105) mg/dL Calcium 8.0 L (8.4-10.2) mg/dL Ferritin (30.0-300.0) ng/mL Lactate Dehydrogenase 454 H (91-180) units/L C-Reactive Protein 9.10 H (0.00-1.30) mg/dL 03/20/20 Range/Units 07:49 RBC (3.65-5.03) M/mm3 MCV (84-94) fl MCH (28-32) pg Plt Count (140-440) K/mm3 BUN (9-20) mg/dL Glucose (75-100) mg/dL POC Glucose (70-105) mg/dL Calcium (8.4-10.2) mg/dL Ferritin 531.3 H (30.0-300.0) ng/mL Lactate Dehydrogenase (91-180) units/L C-Reactive Protein (0.00-1.30) mg/dL
--- NOTE | 2020-03-20 15:46 | Consultation ---
History of Present Illness Consult date: 03/20/20 Requesting physician: MARIANA SIN Reason for consult: other (Acute Hypoxemic Respiratory Failure; PUI COVID-19) History of present illness: PULMONARY/CCM CONSULT NOTE (Full dictation # [id number]) Please see dictated notes for full details Past History Past Medical History: diabetes, hypertension Past Surgical History: No surgical history Social history: no significant social history Family history: no significant family history Medications and Allergies Allergies Allergy/AdvReac Type Severity Reaction Status Date / Time iodine AdvReac Severe Swelling Verified 10/06/15 10:59 IOD AdvReac Severe Swelling Uncoded 10/06/15 10:59 SEAFOOD AdvReac Severe Swelling Uncoded 10/06/15 10:59 Home Medications Medication Instructions Recorded Confirmed Last Taken Type Amlodipine Besylate 10 mg PO DAILY 10/06/15 03/18/20 03/17/20 History Clonidine HCl [Kapvay] 0.1 mg PO DAILY 10/06/15 03/18/20 03/17/20 History Metformin HCl 500 mg PO DAILY 10/06/15 03/18/20 02/28/18 History Active Meds: Active Medications Acetaminophen (Tylenol) 650 mg PO Q6H PRN PRN Reason: Fever >100 Last Admin: 03/19/20 23:04 Dose: 650 mg Documented by: Al Hydrox/Mg Hydrox/Simethicone (Alum-Mag Hydrox-Simeth 307-405-48sf/5ml) 30 ml PO Q4H PRN PRN Reason: Indigestion Clonidine HCl (Catapres) 0.1 mg PO Q24HR [facility] Last Admin: 03/20/20 10:15 Dose: 0.1 mg Documented by: Dexamethasone (Decadron) 6 mg PO DAILY [facility] Stop: 03/28/20 10:01 Last Admin: 03/20/20 10:15 Dose: 6 mg Documented by: Enoxaparin Sodium (Enoxaparin) 40 mg SUB-Q QDAY@1000 [facility]; Protocol Last Admin: 03/20/20 10:15 Dose: 40 mg Documented by: REMDESIVIR 100 mg/ Sodium (Chloride) 250 mls @ 500 mls/hr IV Q24HR@2100 [facility] Stop: 03/23/20 21:29 Insulin Human Lispro (Humalog) 0 unit SUB-Q ACHS [facility]; Protocol Last Admin: 03/20/20 13:48 Dose: Not Given Documented by: Labetalol HCl (Labetalol) 10 mg IV Q6HR PRN PRN Reason: Hypertension Ondansetron HCl (Zofran) 4 mg IV Q8H PRN PRN Reason: Nausea And Vomiting Sodium Chloride (Nacl 0.9%) 50 ml IV 2130 [facility] Stop: 03/23/20 21:31 Last Admin: 03/19/20 18:39 Dose: 50 ml Documented by: Tramadol HCl (Ultram) 50 mg PO Q6H PRN PRN Reason: Pain, Moderate (4-6) Last Admin: 03/18/20 22:32 Dose: 50 mg Documented by: Trazodone HCl (Desyrel) 50 mg PO QHS [facility] Last Admin: 03/19/20 21:06 Dose: 50 mg Documented by: Physical Examination Vital signs: Vital Signs Temp Pulse Resp BP Pulse Ox 101.0 F H 103 H 16 143/74 94 03/18/20 00:32 03/18/20 00:32 03/18/20 00:32 03/18/20 00:32 03/18/20 00:32 Results - Laboratory Findings CBC and BMP: 03/20/20 06:02 03/20/20 07:49 PT/INR, D-dimer D-Dimer 190.65 ng/mlDDU (0-234) 03/20/20 07:49 Abnormal lab findings: Abnormal Labs 03/18/20 03/18/20 03/18/20 01:10 01:10 02:51 WBC 4.2 L RBC 6.56 H Hct 46.8 H MCV 71 L MCH 23 L Plt Count 94 L [place] % (Auto) 10.7 H Lymph # (Auto) 0.7 L Seg Neutrophils % 72.8 H Potassium 2.9 L* Chloride 96.5 L Carbon Dioxide BUN 21 H Glucose 104 H POC Glucose Calcium 8.2 L Ferritin Lactate Dehydrogenase 383 H C-Reactive Protein 2.50 H Coronavirus (PCR) 03/18/20 03/18/20 03/18/20 02:51 08:08 08:42 WBC RBC Hct MCV MCH Plt Count [place] % (Auto) Lymph # (Auto) Seg Neutrophils % Potassium Chloride Carbon Dioxide BUN Glucose POC Glucose 116 H Calcium Ferritin 608.5 H Lactate Dehydrogenase C-Reactive Protein Coronavirus (PCR) Positive A 03/18/20 03/18/20 03/19/20 12:09 17:43 06:08 WBC RBC 6.24 H Hct MCV 71 L MCH 23 L Plt Count 91 L [place] % (Auto) Lymph # (Auto) Seg Neutrophils % Potassium Chloride Carbon Dioxide BUN Glucose POC Glucose 153 H 152 H Calcium Ferritin Lactate Dehydrogenase C-Reactive Protein Coronavirus (PCR) 03/19/20 03/19/20 03/19/20 06:08 12:43 17:57 WBC RBC Hct MCV MCH Plt Count [place] % (Auto) Lymph # (Auto) Seg Neutrophils % Potassium 3.3 L Chloride Carbon Dioxide 33 H D BUN 24 H Glucose 109 H POC Glucose 128 H 132 H Calcium 7.8 L Ferritin Lactate Dehydrogenase C-Reactive Protein Coronavirus (PCR) 03/19/20 03/20/20 03/20/20 22:41 06:02 06:02 WBC RBC 6.10 H Hct MCV 71 L MCH 23 L Plt Count 103 L [place] % (Auto) Lymph # (Auto) Seg Neutrophils % Potassium Chloride Carbon Dioxide BUN 24 H Glucose 111 H POC Glucose 106 H Calcium 8.0 L Ferritin Lactate Dehydrogenase C-Reactive Protein Coronavirus (PCR) 03/20/20 03/20/20 03/20/20 07:49 07:49 13:18 WBC RBC Hct MCV MCH Plt Count [place] % (Auto) Lymph # (Auto) Seg Neutrophils % Potassium Chloride Carbon Dioxide BUN Glucose 106 H POC Glucose 177 H Calcium Ferritin 531.3 H Lactate Dehydrogenase 454 H C-Reactive Protein 9.10 H Coronavirus (PCR)
--- NOTE | 2020-03-20 18:57 | Progress Note ---
Assessment and Plan Assessment and plan: This is a 54-year-old male who presents to ED with Covid-like symptoms including shortness of breath. He has history of hypertension and diabetes. Patient reports fever, body aches, cough, shortness of breath, chest pain for 2 days. 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 Patient has not been tested for Covid. patient seen at bedside. he denies tobacco and illicit drug use. He denies any vomiting or diarrhea. ED Work up shows: WBC 4.2, hemoglobin 14.9, potassium 2.9, sodium 137, C02 25, Cr 1.3 and troponin 0.010 Chest x-ray shows-Bilateral scattered opacity likely 2/2 to viral PNA COVID19 TESTING + 03/19: Continue supportive care, pulmonary consult considering respiratory distress on room air. await ID input on possible Remdesivir considering shortage. Replace Potassium, continue to monitor thrombcytopenia 03/20: Worsening hypoxia, continue current medication, add vitamin c and zinc. will also give incentive spirometer. Discussed with Pulmonary COVID19 Pneumonia Hypoxic Respiratory Failure- Acute. Currently on 2 Liters Tachycardia ?deconditioning vs Pulmonary disease contribution Hypokalemia- Replace. Hypertension Morbid Obesity DM type 2 Plan Supportive care Continue steroids, Monitor oxygen saturation for possible initiation of Remdesivir and Pulm consult ID consult and Antibiotics recommendations Continue to monitor inflammatory markers Weight loss counselling Accucheck considering steroids as mainstay therapy, currently on low dose sliding scale. Patient on metformin outpatient DVT/GI prophy Plan of care discussed with patient Encouraged ambulation in the room and ambient oxygen monitoring with daily 6 mins walk with nursing or RT History Interval history: Patient seen and examined, reported shortness of breath while ambulating on room air although patient continues to improve on oxygen demand is increased Hospitalist Physical - Physical exam Narrative exam: VITAL SIGNS: Reviewed. GENERAL: The patient appears normally developed, morbidly obese Vital signs as documented. HEAD: No signs of head trauma. EYES: Pupils are equal. Extraocular motions intact. EARS: Hearing grossly intact. MOUTH: Oropharynx is normal. NECK: No adenopathy, no JVD. CHEST: Chest with diminished breath sounds bilaterally. No wheezes, rales, or rhonchi. CARDIAC: Regular rate and rhythm. S1 and S2, without murmurs, gallops, or rubs. VASCULAR: No Edema. Peripheral pulses normal and equal in all extremities. ABDOMEN: Soft, non tender and non distended. No rebound or guarding, and no masses palpated. Bowel Sounds normal. MUSCULOSKELETAL: Good range of motion of all major joints. Extremities without clubbing, cyanosis or edema. NEUROLOGIC EXAM: Alert and oriented x 3 No focal sensory or strength deficits. Speech normal. Follows commands. PSYCHIATRIC: Mood normal. SKIN: detail exam as documented in skin assessment - Constitutional Vitals: Temp Pulse Resp BP Pulse Ox 98.5 F 95 H 20 105/65 89 03/20/20 11:12 03/20/20 11:12 03/20/20 11:12 03/20/20 11:12 03/20/20 11:12 General appearance: Present: mild distress HEART Score - HEART Score Troponin: Troponin T < 0.010 ng/mL (0.00-0.029) 03/18/20 09:14 Results - Labs CBC & Chem 7: 03/20/20 06:02 03/20/20 07:49 Labs: Laboratory Last Values WBC 7.5 K/mm3 (4.5-11.0) 03/20/20 06:02 RBC 6.10 M/mm3 (3.65-5.03) H 03/20/20 06:02 Hgb 13.8 gm/dl (11.8-15.2) 03/20/20 06:02 Hct 43.1 % (35.5-45.6) 03/20/20 06:02 MCV 71 fl (84-94) L 03/20/20 06:02 MCH 23 pg (28-32) L 03/20/20 06:02 MCHC 32 % (32-34) 03/20/20 06:02 RDW 15.2 % (13.2-15.2) 03/20/20 06:02 Plt Count 103 K/mm3 (140-440) L 03/20/20 06:02 Lymph % (Auto) 16.1 % (13.4-35.0) 03/18/20 01:10 [place] % (Auto) 10.7 % (0.0-7.3) H 03/18/20 01:10 Eos % (Auto) 0.0 % (0.0-4.3) 03/18/20 01:10 Baso % (Auto) 0.4 % (0.0-1.8) 03/18/20 01:10 Lymph # (Auto) 0.7 K/mm3 (1.2-5.4) L 03/18/20 01:10 [place] # (Auto) 0.4 K/mm3 (0.0-0.8) 03/18/20 01:10 Eos # (Auto) 0.0 K/mm3 (0.0-0.4) 03/18/20 01:10 Baso # (Auto) 0.0 K/mm3 (0.0-0.1) 03/18/20 01:10 Seg Neutrophils % 72.8 % (40.0-70.0) H 03/18/20 01:10 Seg Neutrophils # 3.0 K/mm3 (1.8-7.7) 03/18/20 01:10 D-Dimer 190.65 ng/mlDDU (0-234) 03/20/20 07:49 Sodium 141 mmol/L (137-145) 03/20/20 06:02 Potassium 3.7 mmol/L (3.6-5.0) 03/20/20 06:02 Chloride 102.8 mmol/L (98-107) 03/20/20 06:02 Carbon Dioxide 30 mmol/L (22-30) 03/20/20 06:02 Anion Gap 12 mmol/L 03/20/20 06:02 BUN 24 mg/dL (9-20) H 03/20/20 06:02 Creatinine 0.9 mg/dL (0.8-1.3) 03/20/20 06:02 Estimated GFR > 60 ml/min 03/20/20 06:02 BUN/Creatinine Ratio 27 % 03/20/20 06:02 Glucose 106 mg/dL (75-100) H 03/20/20 07:49 POC Glucose 137 mg/dL (70-105) H 03/20/20 17:01 Hemoglobin A1c 5.7 % (4-6) 03/18/20 04:38 Calcium 8.0 mg/dL (8.4-10.2) L 03/20/20 06:02 Ferritin 531.3 ng/mL (30.0-300.0) H 03/20/20 07:49 Total Bilirubin 1.10 mg/dL (0.1-1.2) 03/18/20 01:10 AST 35 units/L (5-40) 03/18/20 01:10 ALT 13 units/L (7-56) 03/18/20 01:10 Alkaline Phosphatase 63 units/L (35-129) 03/18/20 01:10 Lactate Dehydrogenase 454 units/L (91-180) H 03/20/20 07:49 Troponin T < 0.010 ng/mL (0.00-0.029) 03/18/20 09:14 C-Reactive Protein 9.10 mg/dL (0.00-1.30) H 03/20/20 07:49 Total Protein 7.9 g/dL (6.3-8.2) 03/18/20 01:10 Albumin 3.9 g/dL (3.9-5) 03/18/20 01:10 Albumin/Globulin Ratio 1.0 % 03/18/20 01:10 Procalcitonin < 0.05 ng/mL (<0.15) 03/18/20 02:51 Urine Color Sandra (Yellow) 03/19/20 02:38 Urine Turbidity Clear (Clear) 03/19/20 02:38 Urine pH 6.0 (5.0-7.0) 03/19/20 02:38 Ur Specific [place] 1.027 (1.003-1.030) 03/19/20 02:38 Urine Protein >500 mg/dL (Negative) 03/19/20 02:38 Urine Glucose (UA) Neg mg/dL (Negative) 03/19/20 02:38 Urine Ketones Neg mg/dL (Negative) 03/19/20 02:38 Urine Blood Lg (Negative) 03/19/20 02:38 Urine Nitrite Neg (Negative) 03/19/20 02:38 Urine Bilirubin Neg (Negative) 03/19/20 02:38 Urine Urobilinogen 4.0 mg/dL (<2.0) 03/19/20 02:38 Ur Leukocyte Esterase Neg (Negative) 03/19/20 02:38 Urine WBC (Auto) 3.0 /HPF (0.0-6.0) 03/19/20 02:38 Urine RBC (Auto) 1.0 /HPF (0.0-6.0) 03/19/20 02:38 U Epithel Cells (Auto) 2.0 /HPF (0-13.0) 03/19/20 02:38 Urine Mucus Few /HPF 03/19/20 02:38 Coronavirus (PCR) Positive (Negative) A 03/18/20 08:42 Microbiology: Microbiology 03/18/20 03:52 Peripheral/Venous Blood Culture - Preliminary NO GROWTH AFTER 48 HOURS 03/18/20 04:38 Peripheral/Venous Blood Culture - Preliminary NO GROWTH AFTER 48 HOURS Perez/IV: Voiding Method Toilet IV Catheter Type [Left INT / Saline Lock Antecubital] Active Medications - Current Medications Current Medications: Generic Name Dose Route Start Last Admin Trade Name Freq PRN Reason Stop Dose Admin Acetaminophen 650 mg 03/19/20 22:22 03/19/20 23:04 Tylenol PO 650 mg Q6H PRN Administration Fever >100 Al Hydrox/Mg Hydrox/Simethicone 30 ml 03/18/20 04:27 Alum-Mag Hydrox-Simeth 465-085-85ux/5ml PO Q4H PRN Indigestion Ascorbic Acid 1,000 mg 03/20/20 22:00 Vitamin C PO BID [facility] Clonidine HCl 0.1 mg 03/18/20 10:00 03/20/20 10:15 Catapres PO 0.1 mg Q24HR [facility] Administration Dexamethasone 6 mg 03/19/20 10:00 03/20/20 10:15 Decadron PO 03/28/20 10:01 6 mg DAILY [facility] Administration Enoxaparin Sodium 40 mg 03/18/20 10:00 03/20/20 10:15 Enoxaparin SUB-Q 40 mg QDAY@1000 [facility] Administration Protocol Famotidine 20 mg 03/21/20 10:00 Pepcid PO QDAY [facility] REMDESIVIR 100 mg/ Sodium 250 mls @ 500 mls/hr 03/20/20 21:00 Chloride IV 03/23/20 21:29 Q24HR@2100 [facility] Insulin Human Lispro 0 unit 03/18/20 07:30 03/20/20 18:00 Humalog SUB-Q Not Given ACHS [facility] Protocol Labetalol HCl 10 mg 03/18/20 04:44 Labetalol IV Q6HR PRN Hypertension Ondansetron HCl 4 mg 03/18/20 04:27 Zofran IV Q8H PRN Nausea And Vomiting Sodium Chloride 50 ml 03/19/20 19:30 03/19/20 18:39 Nacl 0.9% IV 03/23/20 21:31 50 ml 2130 [facility] Administration Tramadol HCl 50 mg 03/18/20 04:29 03/18/20 22:32 Ultram PO 50 mg Q6H PRN Administration Pain, Moderate (4-6) Trazodone HCl 50 mg 03/18/20 22:00 03/19/20 21:06 Desyrel PO 50 mg QHS [facility] Administration Zinc Sulfate 220 mg 03/20/20 19:00 Zinc Sulfate PO QDAY [facility]
[2020-03-20] MEDS: ZINC SULFATE 220 MG CAP PO SCH (20:00)
[2020-03-20] MEDS: REMDESIVIR 100 MG in SODIUM CHLORIDE 0.9% 250ML 250 ML IV SCH (21:00)
[2020-03-20] MEDS: SODIUM CHLORIDE 0.9% 50 ML IVPB IV SCH (21:30)
[2020-03-20] MEDS: traZODone 50 MG TAB PO SCH (22:00)
[2020-03-20] MEDS: ASCORBIC ACID 500 MG TAB PO SCH (22:00)
[2020-03-21 07:03] LABS: Hematocrit 44.2 % (35.5-45.6); Hemoglobin 14.2 gm/dl (11.8-15.2); Mean Corpuscular HGB Conc 32 % (32-34); Mean Corpuscular Volume 71 fl (84-94); Platelet Count 139 K/mm3 (140-440); Red Blood Count 6.19 M/mm3 (3.65-5.03); Red Cell Distribution Width 15.4 % (13.2-15.2)
[2020-03-21] MEDS: ASCORBIC ACID 500 MG TAB PO SCH ×2 (09:59→21:06)
[2020-03-21] MEDS: ENOXAPARIN 40 MG/0.4 ML INJ SUB-Q SCH (09:59)
[2020-03-21] MEDS: DEXAMETHASONE 4 MG TAB PO SCH (09:59)
[2020-03-21] MEDS: FAMOTIDINE 20 MG TAB PO SCH (09:59)
[2020-03-21] MEDS: cloNIDine 0.1 MG TAB PO SCH ×2 (09:59→10:21)
[2020-03-21] MEDS: INSULIN LISPRO 100 UNIT/ML VIAL 3 mL SUB-Q SCH ×5 (09:59→22:16)
[2020-03-21] MEDS: ZINC SULFATE 220 MG CAP PO SCH (09:59)
[2020-03-21] MEDS: IPRATROPIUM/ALBUTEROL SULFATE 3 ML AMPUL.NEB IH SCH ×3 (10:37→21:33)
[2020-03-21] MEDS ORDERED: ALBUTEROL 2.5 MG/3 ML NEBU IH PRN (12:00)
--- NOTE | 2020-03-21 12:34 | Progress Note ---
Assessment and Plan Assessment and plan: This is a 54-year-old male who presents to ED with Covid-like symptoms including shortness of breath. He has history of hypertension and diabetes. Patient reports fever, body aches, cough, shortness of breath, chest pain for 2 days. 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 Patient has not been tested for Covid. patient seen at bedside. he denies tobacco and illicit drug use. He denies any vomiting or diarrhea. ED Work up shows: WBC 4.2, hemoglobin 14.9, potassium 2.9, sodium 137, C02 25, Cr 1.3 and troponin 0.010 Chest x-ray shows-Bilateral scattered opacity likely 2/2 to viral PNA COVID19 TESTING + 03/19: Continue supportive care, pulmonary consult considering respiratory distress on room air. await ID input on possible Remdesivir considering shortage. Replace Potassium, continue to monitor thrombcytopenia 03/20: Worsening hypoxia, continue current medication, add vitamin c and zinc. will also give incentive spirometer. Discussed with Pulmonary 03/21: Patient sitting up today still requiring high level of oxygen. Encourage prone position. I did nebulizer treatment and also incentive spirometer. Discussed this treatments with the patient. Continue Decadron and remdesivir. COVID19 Pneumonia Hypoxic Respiratory Failure- Acute. Currently on 2 Liters Tachycardia ?deconditioning vs Pulmonary disease contribution Hypokalemia- Replace. Hypertension Morbid Obesity DM type 2 Plan Supportive care Continue steroids, Monitor oxygen saturation for possible initiation of Remdesivir and Pulm consult ID consult and Antibiotics recommendations Continue to monitor inflammatory markers Weight loss counselling Accucheck considering steroids as mainstay therapy, currently on low dose sliding scale. Patient on metformin outpatient DVT/GI prophy Plan of care discussed with patient Encouraged ambulation in the room and ambient oxygen monitoring with daily 6 mins walk with nursing or RT History Interval history: Patient seen and examined, reported shortness of breath while ambulating on room air although patient continues to improve on oxygen demand is increased Hospitalist Physical - Physical exam Narrative exam: VITAL SIGNS: Reviewed. GENERAL: The patient appears normally developed, morbidly obese Vital signs as documented. HEAD: No signs of head trauma. EYES: Pupils are equal. Extraocular motions intact. EARS: Hearing grossly intact. MOUTH: Oropharynx is normal. NECK: No adenopathy, no JVD. CHEST: Chest with diminished breath sounds bilaterally. No wheezes, rales, or rhonchi. CARDIAC: Regular rate and rhythm. S1 and S2, without murmurs, gallops, or rubs. VASCULAR: No Edema. Peripheral pulses normal and equal in all extremities. ABDOMEN: Soft, non tender and non distended. No rebound or guarding, and no masses palpated. Bowel Sounds normal. MUSCULOSKELETAL: Good range of motion of all major joints. Extremities without clubbing, cyanosis or edema. NEUROLOGIC EXAM: Alert and oriented x 3 No focal sensory or strength deficits. Speech normal. Follows commands. PSYCHIATRIC: Mood normal. SKIN: detail exam as documented in skin assessment - Constitutional Vitals: Temp Pulse Resp BP Pulse Ox 97.9 F 83 17 128/78 94 03/21/20 12:18 03/21/20 12:18 03/21/20 12:18 03/21/20 12:18 03/21/20 12:18 General appearance: Present: mild distress HEART Score - HEART Score Troponin: Troponin T < 0.010 ng/mL (0.00-0.029) 03/18/20 09:14 Results - Labs CBC & Chem 7: 03/21/20 06:08 03/20/20 07:49 Labs: Laboratory Last Values WBC 5.6 K/mm3 (4.5-11.0) 03/21/20 06:08 RBC 6.19 M/mm3 (3.65-5.03) H 03/21/20 06:08 Hgb 14.2 gm/dl (11.8-15.2) 03/21/20 06:08 Hct 44.2 % (35.5-45.6) 03/21/20 06:08 MCV 71 fl (84-94) L 03/21/20 06:08 MCH 23 pg (28-32) L 03/21/20 06:08 MCHC 32 % (32-34) 03/21/20 06:08 RDW 15.4 % (13.2-15.2) H 03/21/20 06:08 Plt Count 139 K/mm3 (140-440) L 03/21/20 06:08 Lymph % (Auto) 16.1 % (13.4-35.0) 03/18/20 01:10 [place] % (Auto) 10.7 % (0.0-7.3) H 03/18/20 01:10 Eos % (Auto) 0.0 % (0.0-4.3) 03/18/20 01:10 Baso % (Auto) 0.4 % (0.0-1.8) 03/18/20 01:10 Lymph # (Auto) 0.7 K/mm3 (1.2-5.4) L 03/18/20 01:10 [place] # (Auto) 0.4 K/mm3 (0.0-0.8) 03/18/20 01:10 Eos # (Auto) 0.0 K/mm3 (0.0-0.4) 03/18/20 01:10 Baso # (Auto) 0.0 K/mm3 (0.0-0.1) 03/18/20 01:10 Seg Neutrophils % 72.8 % (40.0-70.0) H 03/18/20 01:10 Seg Neutrophils # 3.0 K/mm3 (1.8-7.7) 03/18/20 01:10 D-Dimer 190.65 ng/mlDDU (0-234) 03/20/20 07:49 Sodium 141 mmol/L (137-145) 03/20/20 06:02 Potassium 3.7 mmol/L (3.6-5.0) 03/20/20 06:02 Chloride 102.8 mmol/L (98-107) 03/20/20 06:02 Carbon Dioxide 30 mmol/L (22-30) 03/20/20 06:02 Anion Gap 12 mmol/L 03/20/20 06:02 BUN 24 mg/dL (9-20) H 03/20/20 06:02 Creatinine 0.9 mg/dL (0.8-1.3) 03/20/20 06:02 Estimated GFR > 60 ml/min 03/20/20 06:02 BUN/Creatinine Ratio 27 % 03/20/20 06:02 Glucose 106 mg/dL (75-100) H 03/20/20 07:49 POC Glucose 130 mg/dL (70-105) H 03/21/20 12:33 Hemoglobin A1c 5.7 % (4-6) 03/18/20 04:38 Calcium 8.0 mg/dL (8.4-10.2) L 03/20/20 06:02 Ferritin 531.3 ng/mL (30.0-300.0) H 03/20/20 07:49 Total Bilirubin 1.10 mg/dL (0.1-1.2) 03/18/20 01:10 AST 35 units/L (5-40) 03/18/20 01:10 ALT 13 units/L (7-56) 03/18/20 01:10 Alkaline Phosphatase 63 units/L (35-129) 03/18/20 01:10 Lactate Dehydrogenase 454 units/L (91-180) H 03/20/20 07:49 Troponin T < 0.010 ng/mL (0.00-0.029) 03/18/20 09:14 C-Reactive Protein 9.10 mg/dL (0.00-1.30) H 03/20/20 07:49 Total Protein 7.9 g/dL (6.3-8.2) 03/18/20 01:10 Albumin 3.9 g/dL (3.9-5) 03/18/20 01:10 Albumin/Globulin Ratio 1.0 % 03/18/20 01:10 Procalcitonin < 0.05 ng/mL (<0.15) 03/18/20 02:51 Urine Color Sandra (Yellow) 03/19/20 02:38 Urine Turbidity Clear (Clear) 03/19/20 02:38 Urine pH 6.0 (5.0-7.0) 03/19/20 02:38 Ur Specific [place] 1.027 (1.003-1.030) 03/19/20 02:38 Urine Protein >500 mg/dL (Negative) 03/19/20 02:38 Urine Glucose (UA) Neg mg/dL (Negative) 03/19/20 02:38 Urine Ketones Neg mg/dL (Negative) 03/19/20 02:38 Urine Blood Lg (Negative) 03/19/20 02:38 Urine Nitrite Neg (Negative) 03/19/20 02:38 Urine Bilirubin Neg (Negative) 03/19/20 02:38 Urine Urobilinogen 4.0 mg/dL (<2.0) 03/19/20 02:38 Ur Leukocyte Esterase Neg (Negative) 03/19/20 02:38 Urine WBC (Auto) 3.0 /HPF (0.0-6.0) 03/19/20 02:38 Urine RBC (Auto) 1.0 /HPF (0.0-6.0) 03/19/20 02:38 U Epithel Cells (Auto) 2.0 /HPF (0-13.0) 03/19/20 02:38 Urine Mucus Few /HPF 03/19/20 02:38 Coronavirus (PCR) Positive (Negative) A 03/18/20 08:42 Microbiology: Microbiology 03/18/20 03:52 Peripheral/Venous Blood Culture - Preliminary NO GROWTH AFTER 72 HOURS 03/18/20 04:38 Peripheral/Venous Blood Culture - Preliminary NO GROWTH AFTER 72 HOURS Perez/IV: Voiding Method Urinal IV Catheter Type [Left INT / Saline Lock Antecubital] Active Medications - Current Medications Current Medications: Generic Name Dose Route Start Last Admin Trade Name Freq PRN Reason Stop Dose Admin Acetaminophen 650 mg 03/19/20 22:22 03/19/20 23:04 Tylenol PO 650 mg Q6H PRN Administration Fever >100 Al Hydrox/Mg Hydrox/Simethicone 30 ml 03/18/20 04:27 Alum-Mag Hydrox-Simeth 588-212-11up/5ml PO Q4H PRN Indigestion Albuterol 2.5 mg 03/21/20 12:00 Proventil IH Q4HRT PRN Shortness Of Breath Albuterol/Ipratropium 1 ampul 03/21/20 10:30 03/21/20 10:37 Duoneb *Not For Prn Use* IH Not Given Q6HRT RUTH Ascorbic Acid 1,000 mg 03/20/20 22:00 03/21/20 09:59 Vitamin C PO 1,000 mg BID RUTH Administration Clonidine HCl 0.1 mg 03/18/20 10:00 03/21/20 10:21 Catapres PO Not Given Q24HR RUTH Dexamethasone 6 mg 03/19/20 10:00 03/21/20 09:59 Decadron PO 03/28/20 10:01 6 mg DAILY RUTH Administration Enoxaparin Sodium 40 mg 03/18/20 10:00 03/21/20 09:59 Enoxaparin SUB-Q 40 mg QDAY@1000 RUTH Administration Protocol Famotidine 20 mg 03/21/20 10:00 03/21/20 09:59 Pepcid PO 20 mg QDAY URTH Administration REMDESIVIR 100 mg/ Sodium 250 mls @ 500 mls/hr 03/20/20 21:00 03/20/20 21:00 Chloride IV 03/23/20 21:29 500 mls/hr Q24HR@2100 RUTH Administration Insulin Human Lispro 0 unit 03/18/20 07:30 03/21/20 12:25 Humalog SUB-Q Not Given ACHS [facility] Protocol Labetalol HCl 10 mg 03/18/20 04:44 Labetalol IV Q6HR PRN Hypertension Ondansetron HCl 4 mg 03/18/20 04:27 Zofran IV Q8H PRN Nausea And Vomiting Sodium Chloride 50 ml 03/19/20 19:30 03/20/20 21:30 Nacl 0.9% IV 03/23/20 21:31 50 ml 2130 RUTH Administration Sodium Chloride 10 ml 03/21/20 10:30 03/21/20 11:37 Sodium Chloride Flush Syringe 10 Ml IV 10 ml BID RUTH Administration Tramadol HCl 50 mg 03/18/20 04:29 03/18/20 22:32 Ultram PO 50 mg Q6H PRN Administration Pain, Moderate (4-6) Trazodone HCl 50 mg 03/18/20 22:00 03/20/20 22:00 Desyrel PO 50 mg QHS RUTH Administration Zinc Sulfate 220 mg 03/20/20 19:00 03/21/20 09:59 Zinc Sulfate PO 220 mg QDAY RUTH Administration
--- NOTE | 2020-03-21 14:12 | Consultation ---
PULMONARY CRITICAL CARE CONSULTATION CONSULTING PHYSICIAN: Jus Ruano MD REASON FOR CONSULTATION: Acute hypoxemic respiratory failure, COVID-19 infection. 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 He states that a few days ago, he took prisoner/patient into the half-way house and over there, he might have been exposed to some people coughing. He says that night, he started feeling some itchiness in his throat and then as of a couple of days later, he came into the Emergency Room complaining of fevers, body aches, cough, shortness of breath and chest pain that was pleuritic, but retrosternal in nature. Of note, he has a diagnosis of gastroesophageal reflux disease, but denies having symptoms like that. He was evaluated in the Emergency Room. COVID-19 coronavirus test came back positive, the PCR test. We are asked to assist with management. When I stopped by to see him, he was resting in bed. He remained on supplemental oxygen about 5 liters flow. He denied any gross or streaky hemoptysis. He denied any new onset leg pain or swelling either unilaterally or bilaterally or any suggestion of a DVT in the past. He states he has been tested for obstructive sleep apnea and he did not have obstructive sleep apnea. When asked about tobacco use or abuse, he describes himself as a never smoker. This really is as much of the history of presentation as I have. PAST MEDICAL HISTORY: Diabetes, hypertension, gastroesophageal reflux disease, morbid obesity. PAST SURGICAL HISTORY: He has had appendectomy in 1977. MEDICATIONS: He was on at the time I stopped by to see him were reviewed, pertinent medications include the following: Tylenol 650 mg p.o. q. 6 hours p.r.n. fevers greater than 100, Catapres patch 0.1 mg p.o. every 24 hours, dexamethasone 6 mg p.o. daily, Lovenox 40 mg subcutaneous daily, insulin via sliding scale, p.r.n. labetalol, Zofran 4 mg IV q. 8 hours p.r.n. nausea and vomiting. He is on remdesivir dosing I believe day #2. Tramadol 50 mg p.o. q. 6 hours p.r.n. moderate pain and trazodone 50 mg p.o. at bedtime scheduled. ALLERGIES: IODINE AND SEAFOOD and nature of this allergy is unknown. DIET: Morbidly obese. Denies acute weight loss or gain in the preceding few weeks to months. FAMILY AND SOCIAL HISTORY: Lives in the community. Denies alcohol, tobacco, or illicit drug use or abuse. FAMILY HISTORY: Otherwise, noncontributory. REVIEW OF SYSTEMS: No loss of consciousness. No new onset seizures. No new onset focal weakness. No gross hematochezia or melena. No gross hematuria or dysuria. He has a cough, nonproductive. He had pleuritic chest pain. He denies heat or cold intolerance. Denies polydipsia or polyuria. Complete 13-system review of systems obtained. Pertinent positives and/or negatives as in body of history above, otherwise noncontributory. PHYSICAL EXAMINATION: VITAL SIGNS: At presentation in the Emergency Room, he was febrile, temperature 101.0 degrees Fahrenheit, pulse of 103, respiratory rate of 16, blood pressure 143/74, O2 sats were 94%, inspired oxygen concentration at that time was not recorded. When I stopped by to see him, O2 sats were 92% on 40% FiO2. GENERAL: Otherwise, he is a middle-aged morbidly obese male, normocephalic, talking to me with mildly increased respiratory effort at rest. HEAD, EYES, EARS, NOSE AND THROAT: Anicteric. No conjunctival erythema. Oropharynx was moist. Mallampati #4 oropharynx. No gross jugular venous distention. He has a large neck circumference. Grossly, there were no palpable lymph nodes in the supraclavicular or submandibular lymph node chains. LUNGS: Auscultation of both lung hairston significant only for distant breath sounds, diminished bilateral air movement; however, clear. HEART: Heart sounds 1 and 2 are heard. They were regular in rate and rhythm at the time of my evaluation without overt rubs or murmurs. ABDOMEN: Soft, full, protuberant. Bowel sounds are positive, nontender, no palpable hepatosplenomegaly. EXTREMITIES: Without overt digital clubbing, no cyanosis, no pedal edema. Pedal pulses are 2+ bilaterally. NEUROLOGIC: Pupils are equal, round, about 3 mm, reactive to light. Extraocular muscle movements are intact. He moves all 4 extremities spontaneously. SKIN: Normal turgor in the areas examined without overt cellulitis or rash. Please see the wound care nurse's notes for full description of his skin. PSYCHIATRIC: Mood was normal. Affect was anxious, somewhat. LABORATORY DATA: From my review are as follows: Admission white cell count 4200, hemoglobin 14.9, hematocrit 46.8, platelet count was 94. D-dimer within normal limits. Serum sodium was 137, potassium 3.9, chloride 97, bicarbonate 25, BUN 21, creatinine 1.3, glucose 104. Ferritin was up at 608.5. LDH was up at 383. CRP was up at 2.5. Procalcitonin was within normal limits. Coronavirus PCR was positive. White count is 7500 today, BUN is 24. Ferritin is down to 531. CRP is up at 9.1. A chest x-ray was done at presentation. I have reviewed the chest x-ray. It shows borderline to gross cardiomegaly, bibasilar predominant infiltrates, no gross pneumothorax, no gross bony fracture. ASSESSMENT: 1. Acute hypoxemic respiratory failure. 2. COVID-19 infection. 3. Bilateral pneumonia. 4. Diabetes. 5. Hypertension. 6. Gastroesophageal reflux disease. 7. Elevated serum ferritin level and CRP level and LDH level. 8. Leukopenia at presentation. 9. Hypokalemia at presentation. PLAN: I have explained what we know so far as the natural history of this disease to him. Hopefully, his oxygenation does not worsen. He has appropriately been started on remdesivir therapy. I will defer to Infectious Disease for further ancillary treatments for COVID-19 infection. The procalcitonin and CRP levels really are unremarkable. We will treat him without coverage for community-acquired pneumonias. Oxygen will be weaned to keep sats greater than or equal to about 92%. Aspiration precautions will be maintained. He is adamant that he does not have sleep apnea, but he will benefit from a pulmonary/sleep clinic evaluation post-discharge. He is appropriately on DVT prophylaxis. D-dimer was unremarkable. We will continue with DVT prophylaxis doses. I am going to start him on Pepcid for GI prophylaxis. Flu and pneumonia vaccination will be addressed per protocol. Weight loss/lifestyle modifications have been encouraged and continued tobacco abstinence has been counseled. Thank you very much for the consult, Dr. Ruano. We will follow along and make further recommendations as picture progresses/becomes clearer. JOB# [id number] ELIZ/PELON BAEZ
--- NOTE | 2020-03-21 16:31 | Progress Note ---
Assessment and Plan Acute hypoxemic respiratory failure. COVID-19 infection. Bilateral pneumonia. Diabetes. Hypertension. Gastroesophageal reflux disease. Elevated serum ferritin level and CRP level and LDH level. Leukopenia at presentation. Hypokalemia at presentation - repeat CXR in 24-48 hours - continue care as below optherwise; - continue to wean supplemental oxygen to keep O2 sats > 92% - Bronchodilators (RUBEN) with pulm hygiene per RT - continue systemic steroids course with Dexamethasone - Complete Remdesivir dosing - continue airborne and contact isolation - follow repeat COVID-19 assays - avoid nephrotoxins, renally dose all medications - continue mobility protocols to prevent pressure ulcers - PT/OT as tolerated - Wound care per RN/WCT - accuchecks with glycemic control per SSI for target blood glucose < 180 mg/dL - continued tobacco abstinence strongly counseled at the bedside - home oxygen evaluation at discharge - GI & VTE prophylaxis - Flu & pneumovax per protocol - Pulmonary out patient follow up for PFTs and optimization of respiratory status - continue other care per attending / other consultants - prn analgesia per pain score ... re-evaluate in am & prn Subjective Date of service: 03/21/20 Principal diagnosis: Ac hypoxemic resp failure; COVID-19 infxn; Pneumonia; DM II; HTN; GERD Interval history: Patient is seen today for: Acute hypoxemic respiratory failure; COVID-19 infection; Bilateral pneumonia; Diabetes II; HTN; GERD Seen and examined at bedside; 24hour events reviewed; nursing and respiratory care staff consulted; no adverse overnight events reported to me; resting peacefully in bed; remains on supplemental oxygen; still SOB; No N/V/F/C Objective Vital Signs - 12hr 03/21/20 03/21/20 03/21/20 04:43 08:24 12:18 Temperature 98.2 F 97.9 F Pulse Rate 87 83 Pulse Rate [ Anterior Bilateral Throughout] Pulse Rate [ Posterior Bilateral Bases ] Respiratory 18 17 Rate Respiratory Rate [Anterior Bilateral Throughout] Respiratory Rate [Posterior Bilateral Bases] Blood Pressure 123/63 128/78 O2 Sat by Pulse 91 90 94 Oximetry 03/21/20 14:49 Temperature Pulse Rate Pulse Rate [ 86 Anterior Bilateral Throughout] Pulse Rate [ 84 Posterior Bilateral Bases ] Respiratory Rate Respiratory 20 Rate [Anterior Bilateral Throughout] Respiratory 23 Rate [Posterior Bilateral Bases] Blood Pressure O2 Sat by Pulse Oximetry Constitutional: no acute distress, alert, other (middle aged obese male with mildly increased respiratory effort at rest) Eyes: non-icteric ENT: oropharynx moist, other (Mallampati 4) Neck: supple, no lymphadenopathy, no JVD Effort: mildly labored Ascultation: Bilateral: diminished breath sounds, rhonchi Percussion: Bilateral: not dull Cardiovascular: regular rate and rhythm Gastrointestinal: normoactive bowel sounds, soft, non-tender, non-distended (protuberant) Integumentary: normal Extremities: no cyanosis, no edema, pulses normal, no ischemia or petechiae Neurologic: normal mental status, non-focal exam, pupils equal and round, motor strength normal and Psychiatric: mood appropriate, affect normal CBC and BMP: 03/21/20 06:08 03/22/20 08:25 ABG, PT/INR, D-dimer: PT/INR, D-dimer D-Dimer 190.65 ng/mlDDU (0-234) 03/20/20 07:49 Abnormal lab findings: Abnormal Labs 03/18/20 03/18/20 03/18/20 01:10 01:10 02:51 WBC 4.2 L RBC 6.56 H Hct 46.8 H MCV 71 L MCH 23 L RDW Plt Count 94 L [place] % (Auto) 10.7 H Lymph # (Auto) 0.7 L Seg Neutrophils % 72.8 H Potassium 2.9 L* Chloride 96.5 L Carbon Dioxide BUN 21 H Glucose 104 H POC Glucose Calcium 8.2 L Ferritin Lactate Dehydrogenase 383 H C-Reactive Protein 2.50 H Coronavirus (PCR) 03/18/20 03/18/20 03/18/20 02:51 08:08 08:42 WBC RBC Hct MCV MCH RDW Plt Count [place] % (Auto) Lymph # (Auto) Seg Neutrophils % Potassium Chloride Carbon Dioxide BUN Glucose POC Glucose 116 H Calcium Ferritin 608.5 H Lactate Dehydrogenase C-Reactive Protein Coronavirus (PCR) Positive A 03/18/20 03/18/20 03/19/20 12:09 17:43 06:08 WBC RBC 6.24 H Hct MCV 71 L MCH 23 L RDW Plt Count 91 L [place] % (Auto) Lymph # (Auto) Seg Neutrophils % Potassium Chloride Carbon Dioxide BUN Glucose POC Glucose 153 H 152 H Calcium Ferritin Lactate Dehydrogenase C-Reactive Protein Coronavirus (PCR) 03/19/20 03/19/20 03/19/20 06:08 12:43 17:57 WBC RBC Hct MCV MCH RDW Plt Count [place] % (Auto) Lymph # (Auto) Seg Neutrophils % Potassium 3.3 L Chloride Carbon Dioxide 33 H D BUN 24 H Glucose 109 H POC Glucose 128 H 132 H Calcium 7.8 L Ferritin Lactate Dehydrogenase C-Reactive Protein Coronavirus (PCR) 03/19/20 03/20/20 03/20/20 22:41 06:02 06:02 WBC RBC 6.10 H Hct MCV 71 L MCH 23 L RDW Plt Count 103 L [place] % (Auto) Lymph # (Auto) Seg Neutrophils % Potassium Chloride Carbon Dioxide BUN 24 H Glucose 111 H POC Glucose 106 H Calcium 8.0 L Ferritin Lactate Dehydrogenase C-Reactive Protein Coronavirus (PCR) 03/20/20 03/20/20 03/20/20 07:49 07:49 13:18 WBC RBC Hct MCV MCH RDW Plt Count [place] % (Auto) Lymph # (Auto) Seg Neutrophils % Potassium Chloride Carbon Dioxide BUN Glucose 106 H POC Glucose 177 H Calcium Ferritin 531.3 H Lactate Dehydrogenase 454 H C-Reactive Protein 9.10 H Coronavirus (PCR) 03/20/20 03/21/20 03/21/20 17:01 06:08 08:22 WBC RBC 6.19 H Hct MCV 71 L MCH 23 L RDW 15.4 H Plt Count 139 L [place] % (Auto) Lymph # (Auto) Seg Neutrophils % Potassium Chloride Carbon Dioxide BUN Glucose POC Glucose 137 H 122 H Calcium Ferritin Lactate Dehydrogenase C-Reactive Protein Coronavirus (PCR) 03/21/20 03/21/20 12:33 15:56 WBC RBC Hct MCV MCH RDW Plt Count [place] % (Auto) Lymph # (Auto) Seg Neutrophils % Potassium Chloride Carbon Dioxide BUN Glucose POC Glucose 130 H 167 H Calcium Ferritin Lactate Dehydrogenase C-Reactive Protein Coronavirus (PCR) Chest x-ray: pending Allied health notes reviewed: nursing
[2020-03-21] MEDS: hydroCHLOROthiazide 25 MG TAB PO SCH (16:39)
[2020-03-21] MEDS: REMDESIVIR 100 MG in SODIUM CHLORIDE 0.9% 250ML 250 ML IV SCH (21:06)
[2020-03-21] MEDS: traZODone 50 MG TAB PO SCH (21:07)
[2020-03-21] MEDS: SODIUM CHLORIDE 0.9% 50 ML IVPB IV SCH (21:07)
[2020-03-22] MEDS: IPRATROPIUM/ALBUTEROL SULFATE 3 ML AMPUL.NEB IH SCH ×4 (03:48→20:55)
[2020-03-22 09:27] LABS: C-Reactive Protein 2.9 mg/dL (0.00-1.30)
[2020-03-22] MEDS: INSULIN LISPRO 100 UNIT/ML VIAL 3 mL SUB-Q SCH ×4 (09:49→23:04)
[2020-03-22] MEDS: DEXAMETHASONE 4 MG TAB PO SCH (10:42)
[2020-03-22] MEDS: FAMOTIDINE 20 MG TAB PO SCH (10:42)
[2020-03-22] MEDS: ENOXAPARIN 40 MG/0.4 ML INJ SUB-Q SCH (10:43)
[2020-03-22] MEDS: ASCORBIC ACID 500 MG TAB PO SCH ×2 (10:43→22:01)
[2020-03-22] MEDS: ZINC SULFATE 220 MG CAP PO SCH (10:43)
[2020-03-22] MEDS: hydroCHLOROthiazide 25 MG TAB PO SCH (10:43)
--- NOTE | 2020-03-22 13:12 | Progress Note ---
Assessment and Plan Assessment and plan: This is a 54-year-old male who presents to ED with Covid-like symptoms including shortness of breath. He has history of hypertension and diabetes. Patient reports fever, body aches, cough, shortness of breath, chest pain for 2 days. 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 Patient has not been tested for Covid. patient seen at bedside. he denies tobacco and illicit drug use. He denies any vomiting or diarrhea. ED Work up shows: WBC 4.2, hemoglobin 14.9, potassium 2.9, sodium 137, C02 25, Cr 1.3 and troponin 0.010 Chest x-ray shows-Bilateral scattered opacity likely 2/2 to viral PNA COVID19 TESTING + 03/19: Continue supportive care, pulmonary consult considering respiratory distress on room air. await ID input on possible Remdesivir considering shortage. Replace Potassium, continue to monitor thrombcytopenia 03/20: Worsening hypoxia, continue current medication, add vitamin c and zinc. will also give incentive spirometer. Discussed with Pulmonary 03/21: Patient sitting up today still requiring high level of oxygen. Encourage prone position. I did nebulizer treatment and also incentive spirometer. Discussed this treatments with the patient. Continue Decadron and remdesivir. 03/22: SARS-CoV-2 IgG negative will discuss with patient for possible convalescent plasma if in a.m. there is no remarkable improvement. Continue current treatment. Plan of care discussed with the patient in detail discussed with nursing staff continue ambulatory oxygen check. COVID19 Pneumonia Hypoxic Respiratory Failure- Acute. Currently on 2 Liters Tachycardia ?deconditioning vs Pulmonary disease contribution Hypokalemia- Replace. Hypertension Morbid Obesity DM type 2 Plan Supportive care Continue steroids, Monitor oxygen saturation for possible initiation of Remdesivir and Pulm consult ID consult and Antibiotics recommendations Continue to monitor inflammatory markers Weight loss counselling Accucheck considering steroids as mainstay therapy, currently on low dose sliding scale. Patient on metformin outpatient DVT/GI prophy Plan of care discussed with patient Encouraged ambulation in the room and ambient oxygen monitoring with daily 6 mins walk with nursing or RT History Interval history: Patient seen and examined, reported shortness of breath while ambulating on room air remains on 4 L of oxygen mild improvement in symptoms noted. Hospitalist Physical - Physical exam Narrative exam: VITAL SIGNS: Reviewed. GENERAL: The patient appears normally developed, morbidly obese Vital signs as documented. HEAD: No signs of head trauma. EYES: Pupils are equal. Extraocular motions intact. EARS: Hearing grossly intact. MOUTH: Oropharynx is normal. NECK: No adenopathy, no JVD. CHEST: Chest with diminished breath sounds bilaterally. No wheezes, rales, or rhonchi. CARDIAC: Regular rate and rhythm. S1 and S2, without murmurs, gallops, or rubs. VASCULAR: No Edema. Peripheral pulses normal and equal in all extremities. ABDOMEN: Soft, non tender and non distended. No rebound or guarding, and no masses palpated. Bowel Sounds normal. MUSCULOSKELETAL: Good range of motion of all major joints. Extremities without clubbing, cyanosis or edema. NEUROLOGIC EXAM: Alert and oriented x 3 No focal sensory or strength deficits. Speech normal. Follows commands. PSYCHIATRIC: Mood normal. SKIN: detail exam as documented in skin assessment - Constitutional Vitals: Temp Pulse Resp BP Pulse Ox 98.0 F 92 H 21 100/55 91 03/22/20 11:56 03/22/20 10:40 03/22/20 08:37 03/22/20 10:40 03/22/20 10:40 General appearance: Present: mild distress HEART Score - HEART Score Troponin: Troponin T < 0.010 ng/mL (0.00-0.029) 03/18/20 09:14 Results - Labs CBC & Chem 7: 03/21/20 06:08 03/22/20 08:25 Labs: Laboratory Last Values WBC 5.6 K/mm3 (4.5-11.0) 03/21/20 06:08 RBC 6.19 M/mm3 (3.65-5.03) H 03/21/20 06:08 Hgb 14.2 gm/dl (11.8-15.2) 03/21/20 06:08 Hct 44.2 % (35.5-45.6) 03/21/20 06:08 MCV 71 fl (84-94) L 03/21/20 06:08 MCH 23 pg (28-32) L 03/21/20 06:08 MCHC 32 % (32-34) 03/21/20 06:08 RDW 15.4 % (13.2-15.2) H 03/21/20 06:08 Plt Count 139 K/mm3 (140-440) L 03/21/20 06:08 Lymph % (Auto) 16.1 % (13.4-35.0) 03/18/20 01:10 [place] % (Auto) 10.7 % (0.0-7.3) H 03/18/20 01:10 Eos % (Auto) 0.0 % (0.0-4.3) 03/18/20 01:10 Baso % (Auto) 0.4 % (0.0-1.8) 03/18/20 01:10 Lymph # (Auto) 0.7 K/mm3 (1.2-5.4) L 03/18/20 01:10 [place] # (Auto) 0.4 K/mm3 (0.0-0.8) 03/18/20 01:10 Eos # (Auto) 0.0 K/mm3 (0.0-0.4) 03/18/20 01:10 Baso # (Auto) 0.0 K/mm3 (0.0-0.1) 03/18/20 01:10 Seg Neutrophils % 72.8 % (40.0-70.0) H 03/18/20 01:10 Seg Neutrophils # 3.0 K/mm3 (1.8-7.7) 03/18/20 01:10 D-Dimer 263.81 ng/mlDDU (0-234) H 03/22/20 08:25 Sodium 141 mmol/L (137-145) 03/20/20 06:02 Potassium 3.7 mmol/L (3.6-5.0) 03/20/20 06:02 Chloride 102.8 mmol/L (98-107) 03/20/20 06:02 Carbon Dioxide 30 mmol/L (22-30) 03/20/20 06:02 Anion Gap 12 mmol/L 03/20/20 06:02 BUN 24 mg/dL (9-20) H 03/20/20 06:02 Creatinine 0.9 mg/dL (0.8-1.3) 03/20/20 06:02 Estimated GFR > 60 ml/min 03/20/20 06:02 BUN/Creatinine Ratio 27 % 03/20/20 06:02 Glucose 109 mg/dL (75-100) H 03/22/20 08:25 POC Glucose 107 mg/dL (70-105) H 03/22/20 08:52 Hemoglobin A1c 5.7 % (4-6) 03/18/20 04:38 Calcium 8.0 mg/dL (8.4-10.2) L 03/20/20 06:02 Ferritin 500.0 ng/mL (30.0-300.0) H 03/22/20 08:25 Total Bilirubin 1.10 mg/dL (0.1-1.2) 03/18/20 01:10 AST 35 units/L (5-40) 03/18/20 01:10 ALT 13 units/L (7-56) 03/18/20 01:10 Alkaline Phosphatase 63 units/L (35-129) 03/18/20 01:10 Lactate Dehydrogenase 453 units/L (91-180) H 03/22/20 08:25 Troponin T < 0.010 ng/mL (0.00-0.029) 03/18/20 09:14 C-Reactive Protein 2.90 mg/dL (0.00-1.30) H 03/22/20 08:25 Total Protein 7.9 g/dL (6.3-8.2) 03/18/20 01:10 Albumin 3.9 g/dL (3.9-5) 03/18/20 01:10 Albumin/Globulin Ratio 1.0 % 03/18/20 01:10 Procalcitonin < 0.05 ng/mL (<0.15) 03/18/20 02:51 Urine Color Sandra (Yellow) 03/19/20 02:38 Urine Turbidity Clear (Clear) 03/19/20 02:38 Urine pH 6.0 (5.0-7.0) 03/19/20 02:38 Ur Specific [place] 1.027 (1.003-1.030) 03/19/20 02:38 Urine Protein >500 mg/dL (Negative) 03/19/20 02:38 Urine Glucose (UA) Neg mg/dL (Negative) 03/19/20 02:38 Urine Ketones Neg mg/dL (Negative) 03/19/20 02:38 Urine Blood Lg (Negative) 03/19/20 02:38 Urine Nitrite Neg (Negative) 03/19/20 02:38 Urine Bilirubin Neg (Negative) 03/19/20 02:38 Urine Urobilinogen 4.0 mg/dL (<2.0) 03/19/20 02:38 Ur Leukocyte Esterase Neg (Negative) 03/19/20 02:38 Urine WBC (Auto) 3.0 /HPF (0.0-6.0) 03/19/20 02:38 Urine RBC (Auto) 1.0 /HPF (0.0-6.0) 03/19/20 02:38 U Epithel Cells (Auto) 2.0 /HPF (0-13.0) 03/19/20 02:38 Urine Mucus Few /HPF 03/19/20 02:38 Coronavirus (PCR) Positive (Negative) A 03/18/20 08:42 SARS-CoV-2 IgG Ab Nonreactive (NonReactive) 03/21/20 13:39 Microbiology: Microbiology 03/18/20 03:52 Peripheral/Venous Blood Culture - Preliminary NO GROWTH AFTER 4 DAYS 03/18/20 04:38 Peripheral/Venous Blood Culture - Preliminary NO GROWTH AFTER 4 DAYS Perez/IV: Voiding Method Urinal IV Catheter Type [Left INT / Saline Lock Antecubital] Active Medications - Current Medications Current Medications: Generic Name Dose Route Start Last Admin Trade Name Freq PRN Reason Stop Dose Admin Acetaminophen 650 mg 03/19/20 22:22 03/19/20 23:04 Tylenol PO 650 mg Q6H PRN Administration Fever >100 Al Hydrox/Mg Hydrox/Simethicone 30 ml 03/18/20 04:27 Alum-Mag Hydrox-Simeth 691-344-21qd/5ml PO Q4H PRN Indigestion Albuterol 2.5 mg 03/21/20 12:00 Proventil IH Q4HRT PRN Shortness Of Breath Albuterol/Ipratropium 1 ampul 03/21/20 10:30 03/22/20 08:33 Duoneb *Not For Prn Use* IH 1 ampul Q6HRT RUTH Administration Ascorbic Acid 1,000 mg 03/20/20 22:00 03/22/20 10:43 Vitamin C PO 1,000 mg BID RUTH Administration Dexamethasone 6 mg 03/19/20 10:00 03/22/20 10:42 Decadron PO 03/28/20 10:01 6 mg DAILY RUTH Administration Enoxaparin Sodium 40 mg 03/18/20 10:00 03/22/20 10:43 Enoxaparin SUB-Q 40 mg QDAY@1000 RUTH Administration Protocol Famotidine 20 mg 03/21/20 10:00 03/22/20 10:42 Pepcid PO 20 mg QDAY RUTH Administration Hydrochlorothiazide 25 mg 03/21/20 15:00 03/22/20 10:43 Hctz PO Not Given QDAY RUTH REMDESIVIR 100 mg/ Sodium 250 mls @ 500 mls/hr 03/20/20 21:00 03/21/20 21:06 Chloride IV 03/23/20 21:29 500 mls/hr Q24HR@2100 RUTH Administration Insulin Human Lispro 0 unit 03/18/20 07:30 03/22/20 09:49 Humalog SUB-Q Not Given ACHS [facility] Protocol Labetalol HCl 10 mg 03/18/20 04:44 Labetalol IV Q6HR PRN Hypertension Ondansetron HCl 4 mg 03/18/20 04:27 Zofran IV Q8H PRN Nausea And Vomiting Sodium Chloride 50 ml 03/19/20 19:30 03/21/20 21:07 Nacl 0.9% IV 03/23/20 21:31 50 ml 2130 RUTH Administration Sodium Chloride 10 ml 03/21/20 10:30 03/22/20 10:43 Sodium Chloride Flush Syringe 10 Ml IV 10 ml BID RUTH Administration Tramadol HCl 50 mg 03/18/20 04:29 03/18/20 22:32 Ultram PO 50 mg Q6H PRN Administration Pain, Moderate (4-6) Trazodone HCl 50 mg 03/18/20 22:00 03/21/20 21:07 Desyrel PO 50 mg QHS RUTH Administration Zinc Sulfate 220 mg 03/20/20 19:00 03/22/20 10:43 Zinc Sulfate PO 220 mg QDAY RUTH Administration
--- NOTE | 2020-03-22 15:42 | Progress Note ---
Assessment and Plan Acute hypoxemic respiratory failure. COVID-19 infection. Bilateral pneumonia. Diabetes. Hypertension. Gastroesophageal reflux disease. Elevated serum ferritin level and CRP level and LDH level. Leukopenia at presentation. Hypokalemia at presentation - repeat CXR in 24-48 hours - continue care as below optherwise; - continue to wean supplemental oxygen to keep O2 sats > 92% - Bronchodilators (RUBEN) with pulm hygiene per RT - continue systemic steroids course with Dexamethasone - Complete Remdesivir dosing - continue airborne and contact isolation - follow repeat COVID-19 assays - avoid nephrotoxins, renally dose all medications - continue mobility protocols to prevent pressure ulcers - PT/OT as tolerated - Wound care per RN/WCT - accuchecks with glycemic control per SSI for target blood glucose < 180 mg/dL - continued tobacco abstinence strongly counseled at the bedside - home oxygen evaluation at discharge - GI & VTE prophylaxis - Flu & pneumovax per protocol - Pulmonary out patient follow up for PFTs and optimization of respiratory status - continue other care per attending / other consultants - prn analgesia per pain score ... re-evaluate in am & prn Subjective Date of service: 03/22/20 Principal diagnosis: Ac hypoxemic resp failure; COVID-19 infxn; Pneumonia; DM II; HTN; GERD Interval history: Patient is seen today for: Acute hypoxemic respiratory failure; COVID-19 infection; Bilateral pneumonia; Diabetes II; HTN; GERD Seen and examined at bedside; 24hour events reviewed; nursing and respiratory care staff consulted; no adverse overnight events reported to me; resting peacefully in bed; Objective Vital Signs - 12hr 03/22/20 03/22/20 03/22/20 05:52 08:37 10:38 Temperature 98.3 F Pulse Rate 75 91 H Pulse Rate [ 79 Posterior Bilateral Bases ] Respiratory 17 Rate Respiratory 21 Rate [Posterior Bilateral Bases] Blood Pressure 138/65 102/64 O2 Sat by Pulse 95 89 Oximetry 03/22/20 03/22/20 03/22/20 10:40 11:56 14:37 Temperature 98.0 F Pulse Rate 92 H Pulse Rate [ 103 H Posterior Bilateral Bases ] Respiratory Rate Respiratory 16 Rate [Posterior Bilateral Bases] Blood Pressure 100/55 O2 Sat by Pulse 91 Oximetry Constitutional: no acute distress, alert, other (middle aged obese male with mildly increased respiratory effort at rest) Eyes: non-icteric ENT: oropharynx moist, other (Mallampati 4) Neck: supple, no lymphadenopathy, no JVD Effort: mildly labored Ascultation: Bilateral: diminished breath sounds, rhonchi Percussion: Bilateral: not dull Cardiovascular: regular rate and rhythm Gastrointestinal: normoactive bowel sounds, soft, non-tender, non-distended (protuberant) Integumentary: normal Extremities: no cyanosis, no edema, pulses normal, no ischemia or petechiae Neurologic: normal mental status, non-focal exam, pupils equal and round, motor strength normal and Psychiatric: mood appropriate, affect normal CBC and BMP: 03/21/20 06:08 03/22/20 08:25 ABG, PT/INR, D-dimer: PT/INR, D-dimer D-Dimer 263.81 ng/mlDDU (0-234) H 03/22/20 08:25 Abnormal lab findings: Abnormal Labs 03/18/20 03/18/20 03/18/20 01:10 01:10 02:51 WBC 4.2 L RBC 6.56 H Hct 46.8 H MCV 71 L MCH 23 L RDW Plt Count 94 L [place] % (Auto) 10.7 H Lymph # (Auto) 0.7 L Seg Neutrophils % 72.8 H D-Dimer Potassium 2.9 L* Chloride 96.5 L Carbon Dioxide BUN 21 H Glucose 104 H POC Glucose Calcium 8.2 L Ferritin Lactate Dehydrogenase 383 H C-Reactive Protein 2.50 H Coronavirus (PCR) 03/18/20 03/18/20 03/18/20 02:51 08:08 08:42 WBC RBC Hct MCV MCH RDW Plt Count [place] % (Auto) Lymph # (Auto) Seg Neutrophils % D-Dimer Potassium Chloride Carbon Dioxide BUN Glucose POC Glucose 116 H Calcium Ferritin 608.5 H Lactate Dehydrogenase C-Reactive Protein Coronavirus (PCR) Positive A 03/18/20 03/18/20 03/19/20 12:09 17:43 06:08 WBC RBC 6.24 H Hct MCV 71 L MCH 23 L RDW Plt Count 91 L [place] % (Auto) Lymph # (Auto) Seg Neutrophils % D-Dimer Potassium Chloride Carbon Dioxide BUN Glucose POC Glucose 153 H 152 H Calcium Ferritin Lactate Dehydrogenase C-Reactive Protein Coronavirus (PCR) 03/19/20 03/19/20 03/19/20 06:08 12:43 17:57 WBC RBC Hct MCV MCH RDW Plt Count [place] % (Auto) Lymph # (Auto) Seg Neutrophils % D-Dimer Potassium 3.3 L Chloride Carbon Dioxide 33 H D BUN 24 H Glucose 109 H POC Glucose 128 H 132 H Calcium 7.8 L Ferritin Lactate Dehydrogenase C-Reactive Protein Coronavirus (PCR) 03/19/20 03/20/20 03/20/20 22:41 06:02 06:02 WBC RBC 6.10 H Hct MCV 71 L MCH 23 L RDW Plt Count 103 L [place] % (Auto) Lymph # (Auto) Seg Neutrophils % D-Dimer Potassium Chloride Carbon Dioxide BUN 24 H Glucose 111 H POC Glucose 106 H Calcium 8.0 L Ferritin Lactate Dehydrogenase C-Reactive Protein Coronavirus (PCR) 03/20/20 03/20/20 03/20/20 07:49 07:49 13:18 WBC RBC Hct MCV MCH RDW Plt Count [place] % (Auto) Lymph # (Auto) Seg Neutrophils % D-Dimer Potassium Chloride Carbon Dioxide BUN Glucose 106 H POC Glucose 177 H Calcium Ferritin 531.3 H Lactate Dehydrogenase 454 H C-Reactive Protein 9.10 H Coronavirus (PCR) 03/20/20 03/21/20 03/21/20 17:01 06:08 08:22 WBC RBC 6.19 H Hct MCV 71 L MCH 23 L RDW 15.4 H Plt Count 139 L [place] % (Auto) Lymph # (Auto) Seg Neutrophils % D-Dimer Potassium Chloride Carbon Dioxide BUN Glucose POC Glucose 137 H 122 H Calcium Ferritin Lactate Dehydrogenase C-Reactive Protein Coronavirus (PCR) 03/21/20 03/21/20 03/21/20 12:33 15:56 22:30 WBC RBC Hct MCV MCH RDW Plt Count [place] % (Auto) Lymph # (Auto) Seg Neutrophils % D-Dimer Potassium Chloride Carbon Dioxide BUN Glucose POC Glucose 130 H 167 H 161 H Calcium Ferritin Lactate Dehydrogenase C-Reactive Protein Coronavirus (PCR) 03/22/20 03/22/20 03/22/20 08:25 08:25 08:25 WBC RBC Hct MCV MCH RDW Plt Count [place] % (Auto) Lymph # (Auto) Seg Neutrophils % D-Dimer 263.81 H Potassium Chloride Carbon Dioxide BUN Glucose 109 H POC Glucose Calcium Ferritin 500.0 H Lactate Dehydrogenase 453 H C-Reactive Protein 2.90 H Coronavirus (PCR) 03/22/20 08:52 WBC RBC Hct MCV MCH RDW Plt Count [place] % (Auto) Lymph # (Auto) Seg Neutrophils % D-Dimer Potassium Chloride Carbon Dioxide BUN Glucose POC Glucose 107 H Calcium Ferritin Lactate Dehydrogenase C-Reactive Protein Coronavirus (PCR) Allied health notes reviewed: nursing
[2020-03-22] MEDS: traZODone 50 MG TAB PO SCH (22:02)
[2020-03-22] MEDS: SODIUM CHLORIDE 0.9% 50 ML IVPB IV SCH (22:02)
[2020-03-22] MEDS: REMDESIVIR 100 MG in SODIUM CHLORIDE 0.9% 250ML 250 ML IV SCH (22:02)
[2020-03-23] MEDS: IPRATROPIUM/ALBUTEROL SULFATE 3 ML AMPUL.NEB IH SCH ×4 (02:58→21:58)
[2020-03-23] MEDS: INSULIN LISPRO 100 UNIT/ML VIAL 3 mL SUB-Q SCH ×4 (08:22→23:54)
[2020-03-23] MEDS: FAMOTIDINE 20 MG TAB PO SCH (10:19)
[2020-03-23] MEDS: ENOXAPARIN 40 MG/0.4 ML INJ SUB-Q SCH (10:19)
[2020-03-23] MEDS: hydroCHLOROthiazide 25 MG TAB PO SCH (10:19)
[2020-03-23] MEDS: ZINC SULFATE 220 MG CAP PO SCH (10:20)
[2020-03-23] MEDS: DEXAMETHASONE 4 MG TAB PO SCH (10:20)
[2020-03-23] MEDS: ASCORBIC ACID 500 MG TAB PO SCH ×2 (10:20→21:36)
--- NOTE | 2020-03-23 10:38 | Progress Note ---
Assessment and Plan Assessment and plan: This is a 54-year-old male who presents to ED with Covid-like symptoms including shortness of breath. He has history of hypertension and diabetes. Patient reports fever, body aches, cough, shortness of breath, chest pain for 2 days. 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 Patient has not been tested for Covid. patient seen at bedside. he denies tobacco and illicit drug use. He denies any vomiting or diarrhea. ED Work up shows: WBC 4.2, hemoglobin 14.9, potassium 2.9, sodium 137, C02 25, Cr 1.3 and troponin 0.010 Chest x-ray shows-Bilateral scattered opacity likely 2/2 to viral PNA COVID19 TESTING + 03/19: Continue supportive care, pulmonary consult considering respiratory distress on room air. await ID input on possible Remdesivir considering shortage. Replace Potassium, continue to monitor thrombcytopenia 03/20: Worsening hypoxia, continue current medication, add vitamin c and zinc. will also give incentive spirometer. Discussed with Pulmonary 03/21: Patient sitting up today still requiring high level of oxygen. Encourage prone position. I did nebulizer treatment and also incentive spirometer. Discussed this treatments with the patient. Continue Decadron and remdesivir. 03/22: SARS-CoV-2 IgG negative will discuss with patient for possible convalescent plasma if in a.m. there is no remarkable improvement. Continue current treatment. Plan of care discussed with the patient in detail discussed with nursing staff continue ambulatory oxygen check. 03/23: Patient seen and examined today discussed convalescent plasma therapy but he refused. Continue aggressive pulmonary toilet. Show some improvement with nebulizer treatment. Chest x-ray repeated today. Recheck inflammatory markers in a.m. to ensure improvement. COVID19 Pneumonia Hypoxic Respiratory Failure- Acute. Currently on 2 Liters Tachycardia ?deconditioning vs Pulmonary disease contribution Hypokalemia- Replace. Hypertension Morbid Obesity Hypertension Leukopenia presentation Elevated ferritin level secondary to COVID-19 Gastro esophageal reflux DM type 2 Plan Supportive care Continue steroids, Monitor oxygen saturation for possible initiation of Remdesivir and Pulm consult ID consult and Antibiotics recommendations Continue to monitor inflammatory markers Weight loss counselling Accucheck considering steroids as mainstay therapy, currently on low dose sliding scale. Patient on metformin outpatient DVT/GI prophy Plan of care discussed with patient Encouraged ambulation in the room and ambient oxygen monitoring with daily 6 mins walk with nursing or RT History Interval history: Patient seen and examined, shortness of breath while ambulating on room air remains on 4 L of oxygen mild improvement in symptoms noted. Patient refused convalescent plasma therapy Hospitalist Physical - Physical exam Narrative exam: VITAL SIGNS: Reviewed. GENERAL: The patient appears normally developed, sitting up in bed morbidly obese Vital signs as documented. HEAD: No signs of head trauma. EYES: Pupils are equal. Extraocular motions intact. EARS: Hearing grossly intact. MOUTH: Oropharynx is normal. NECK: No adenopathy, no JVD. CHEST: Chest with diminished breath sounds bilaterally. No wheezes, rales, or rhonchi. CARDIAC: Regular rate and rhythm. S1 and S2, without murmurs, gallops, or rubs. VASCULAR: No Edema. Peripheral pulses normal and equal in all extremities. ABDOMEN: Soft, non tender and non distended. No rebound or guarding, and no masses palpated. Bowel Sounds normal. MUSCULOSKELETAL: Good range of motion of all major joints. Extremities without clubbing, cyanosis or edema. NEUROLOGIC EXAM: Alert and oriented x 3 No focal sensory or strength deficits. Speech normal. Follows commands. PSYCHIATRIC: Mood normal. SKIN: detail exam as documented in skin assessment - Constitutional Vitals: Temp Pulse Resp BP Pulse Ox 98.2 F 96 H 18 120/70 95 03/23/20 06:18 03/23/20 07:41 03/23/20 07:41 03/23/20 06:18 03/23/20 07:41 General appearance: Present: mild distress HEART Score - HEART Score Troponin: Troponin T < 0.010 ng/mL (0.00-0.029) 03/18/20 09:14 Results - Labs CBC & Chem 7: 03/21/20 06:08 03/22/20 08:25 Labs: Laboratory Last Values WBC 5.6 K/mm3 (4.5-11.0) 03/21/20 06:08 RBC 6.19 M/mm3 (3.65-5.03) H 03/21/20 06:08 Hgb 14.2 gm/dl (11.8-15.2) 03/21/20 06:08 Hct 44.2 % (35.5-45.6) 03/21/20 06:08 MCV 71 fl (84-94) L 03/21/20 06:08 MCH 23 pg (28-32) L 03/21/20 06:08 MCHC 32 % (32-34) 03/21/20 06:08 RDW 15.4 % (13.2-15.2) H 03/21/20 06:08 Plt Count 139 K/mm3 (140-440) L 03/21/20 06:08 Lymph % (Auto) 16.1 % (13.4-35.0) 03/18/20 01:10 Mills % (Auto) 10.7 % (0.0-7.3) H 03/18/20 01:10 Eos % (Auto) 0.0 % (0.0-4.3) 03/18/20 01:10 Baso % (Auto) 0.4 % (0.0-1.8) 03/18/20 01:10 Lymph # (Auto) 0.7 K/mm3 (1.2-5.4) L 03/18/20 01:10 [place] # (Auto) 0.4 K/mm3 (0.0-0.8) 03/18/20 01:10 Eos # (Auto) 0.0 K/mm3 (0.0-0.4) 03/18/20 01:10 Baso # (Auto) 0.0 K/mm3 (0.0-0.1) 03/18/20 01:10 Seg Neutrophils % 72.8 % (40.0-70.0) H 03/18/20 01:10 Seg Neutrophils # 3.0 K/mm3 (1.8-7.7) 03/18/20 01:10 D-Dimer 263.81 ng/mlDDU (0-234) H 03/22/20 08:25 Sodium 141 mmol/L (137-145) 03/20/20 06:02 Potassium 3.7 mmol/L (3.6-5.0) 03/20/20 06:02 Chloride 102.8 mmol/L (98-107) 03/20/20 06:02 Carbon Dioxide 30 mmol/L (22-30) 03/20/20 06:02 Anion Gap 12 mmol/L 03/20/20 06:02 BUN 24 mg/dL (9-20) H 03/20/20 06:02 Creatinine 0.9 mg/dL (0.8-1.3) 03/20/20 06:02 Estimated GFR > 60 ml/min 03/20/20 06:02 BUN/Creatinine Ratio 27 % 03/20/20 06:02 Glucose 109 mg/dL (75-100) H 03/22/20 08:25 POC Glucose 92 mg/dL (70-105) 03/23/20 08:17 Hemoglobin A1c 5.7 % (4-6) 03/18/20 04:38 Calcium 8.0 mg/dL (8.4-10.2) L 03/20/20 06:02 Ferritin 500.0 ng/mL (30.0-300.0) H 03/22/20 08:25 Total Bilirubin 1.10 mg/dL (0.1-1.2) 03/18/20 01:10 AST 35 units/L (5-40) 03/18/20 01:10 ALT 13 units/L (7-56) 03/18/20 01:10 Alkaline Phosphatase 63 units/L (35-129) 03/18/20 01:10 Lactate Dehydrogenase 453 units/L (91-180) H 03/22/20 08:25 Troponin T < 0.010 ng/mL (0.00-0.029) 03/18/20 09:14 C-Reactive Protein 2.90 mg/dL (0.00-1.30) H 03/22/20 08:25 Total Protein 7.9 g/dL (6.3-8.2) 03/18/20 01:10 Albumin 3.9 g/dL (3.9-5) 03/18/20 01:10 Albumin/Globulin Ratio 1.0 % 03/18/20 01:10 Procalcitonin < 0.05 ng/mL (<0.15) 03/18/20 02:51 Urine Color Sandra (Yellow) 03/19/20 02:38 Urine Turbidity Clear (Clear) 03/19/20 02:38 Urine pH 6.0 (5.0-7.0) 03/19/20 02:38 Ur Specific [place] 1.027 (1.003-1.030) 03/19/20 02:38 Urine Protein >500 mg/dL (Negative) 03/19/20 02:38 Urine Glucose (UA) Neg mg/dL (Negative) 03/19/20 02:38 Urine Ketones Neg mg/dL (Negative) 03/19/20 02:38 Urine Blood Lg (Negative) 03/19/20 02:38 Urine Nitrite Neg (Negative) 03/19/20 02:38 Urine Bilirubin Neg (Negative) 03/19/20 02:38 Urine Urobilinogen 4.0 mg/dL (<2.0) 03/19/20 02:38 Ur Leukocyte Esterase Neg (Negative) 03/19/20 02:38 Urine WBC (Auto) 3.0 /HPF (0.0-6.0) 03/19/20 02:38 Urine RBC (Auto) 1.0 /HPF (0.0-6.0) 03/19/20 02:38 U Epithel Cells (Auto) 2.0 /HPF (0-13.0) 03/19/20 02:38 Urine Mucus Few /HPF 03/19/20 02:38 Coronavirus (PCR) Positive (Negative) A 03/18/20 08:42 SARS-CoV-2 IgG Ab Nonreactive (NonReactive) 03/21/20 13:39 Microbiology: Microbiology 03/18/20 03:52 Peripheral/Venous Blood Culture - Final NO GROWTH AFTER 5 DAYS 03/18/20 04:38 Peripheral/Venous Blood Culture - Final NO GROWTH AFTER 5 DAYS Perez/IV: Voiding Method Urinal IV Catheter Type [Left INT / Saline Lock Antecubital] Active Medications - Current Medications Current Medications: Generic Name Dose Route Start Last Admin Trade Name Freq PRN Reason Stop Dose Admin Acetaminophen 650 mg 03/19/20 22:22 03/19/20 23:04 Tylenol PO 650 mg Q6H PRN Administration Fever >100 Al Hydrox/Mg Hydrox/Simethicone 30 ml 03/18/20 04:27 Alum-Mag Hydrox-Simeth 493-232-02rd/5ml PO Q4H PRN Indigestion Albuterol 2.5 mg 03/21/20 12:00 Proventil IH Q4HRT PRN Shortness Of Breath Albuterol/Ipratropium 1 ampul 03/23/20 08:00 03/23/20 07:41 Duoneb *Not For Prn Use* IH 1 ampul TIDRT RUTH Administration Ascorbic Acid 1,000 mg 03/20/20 22:00 03/23/20 10:20 Vitamin C PO 1,000 mg BID RUTH Administration Dexamethasone 6 mg 03/19/20 10:00 03/23/20 10:20 Decadron PO 03/28/20 10:01 6 mg DAILY RUTH Administration Enoxaparin Sodium 40 mg 03/18/20 10:00 03/23/20 10:19 Enoxaparin SUB-Q 40 mg QDAY@1000 RUTH Administration Protocol Famotidine 20 mg 03/21/20 10:00 03/23/20 10:19 Pepcid PO 20 mg QDAY RUTH Administration Hydrochlorothiazide 25 mg 03/21/20 15:00 03/23/20 10:19 Hctz PO 25 mg QDAY RUTH Administration REMDESIVIR 100 mg/ Sodium 250 mls @ 500 mls/hr 03/20/20 21:00 03/22/20 22:02 Chloride IV 03/23/20 21:29 500 mls/hr Q24HR@2100 RUTH Administration Insulin Human Lispro 0 unit 03/18/20 07:30 03/23/20 08:22 Humalog SUB-Q Not Given ACHS [facility] Protocol Labetalol HCl 10 mg 03/18/20 04:44 Labetalol IV Q6HR PRN Hypertension Ondansetron HCl 4 mg 03/18/20 04:27 Zofran IV Q8H PRN Nausea And Vomiting Sodium Chloride 50 ml 03/19/20 19:30 03/22/20 22:02 Nacl 0.9% IV 03/23/20 21:31 50 ml 2130 RUTH Administration Sodium Chloride 10 ml 03/21/20 10:30 03/23/20 10:20 Sodium Chloride Flush Syringe 10 Ml IV 10 ml BID RUTH Administration Tramadol HCl 50 mg 03/18/20 04:29 03/18/20 22:32 Ultram PO 50 mg Q6H PRN Administration Pain, Moderate (4-6) Trazodone HCl 50 mg 03/18/20 22:00 03/22/20 22:02 Desyrel PO 50 mg QHS RUTH Administration Zinc Sulfate 220 mg 03/20/20 19:00 03/23/20 10:20 Zinc Sulfate PO 220 mg QDAY RUTH Administration
--- NOTE | 2020-03-23 10:49 | XRay Report ---
CHEST 1 VIEW INDICATION: SHORTNESS OF BREATH. COMPARISON: 03/18/2020 FINDINGS: Support devices: None. Heart: Normal. Lungs/Pleura: Patchy bilateral pulmonary opacities persist, these have slightly worsened particularly in the right upper lobe. No large effusion, no pneumothorax. IMPRESSION: 1. Interval worsening of patchy bilateral airspace disease. Signer Name: Aniket García MD Signed: 03/23/2020 10:45 AM Workstation Name: [id number]
--- NOTE | 2020-03-23 15:17 | Progress Note ---
Assessment and Plan Cultures: Blood culture no growth today SARS CoV2 PCR positive, IgG negative Assessment: 54 years old male with history of hypertension and diabetes mellitus, admitted on due to 2-day history of fever, body aches, and shortness of breath, cough, chest pain, patient exposed to COVID-19 at work: #Sepsis: Secondary to COVID-19 pneumonia. #Severe COVID pneumonia: D-dimer normal, ferritin elevated. SARS-CoV-2 IgG is negative, patient may benefit from convalescent plasma, but patient refused #Acute hypoxemic respiratory failure: Worsening patient is now on 4 L nasal cannula #MIGUEL: from COVID, improving. Recommendations: -Continue dexamethasone 6 mg IV/PO daily for 10 days, day 5 -Continue remdesivir, day 5 of 5 today -Monitor inflammatory markers - ferritin, Ddimer, CRP, LDH -Monitor liver function test on Remdesivir -Continue anticoagulation per System Protocol -Prone positioning as possible, wean oxygen -ambulatory sats prior to discharge Marquita Gabriel MD, FACP [facility] [place] O: [phone] F: [phone] Subjective Date of service: 03/23/20 Principal diagnosis: Ac hypoxemic resp failure; COVID-19 infxn; Pneumonia; DM II; HTN; GERD Interval history: Afebrile. Remains on oxygen at 5 L by nasal cannula. Objective - Exam Narrative Exam: Physical Exam (reviewed in chart due to PPE conservation and minimize risk of transmission) Constitutional: limited due to PPE conservation strategy Head, Ears, Nose: limited due to PPE conservation strategy Eyes: limited due to PPE conservation strategy Neck: limited due to PPE conservation strategy Oral: limited due to PPE conservation strategy Cardiovascular: limited due to PPE conservation strategy Respiratory: limited due to PPE conservation strategy GI: limited due to PPE conservation strategy Musculoskeletal: limited due to PPE conservation strategy Skin: limited due to PPE conservation strategy Hem/Lymphatic: limited due to PPE conservation strategy Psych: limited due to PPE conservation strategy Neurological: limited due to PPE conservation strategy - Constitutional Vitals: Vital Signs Temp Pulse Resp BP Pulse Ox 98.2 F 99 H 18 110/59 94 03/23/20 14:46 03/23/20 14:46 03/23/20 14:46 03/23/20 14:46 03/23/20 14:46 Temperature -Last 24 Hours Temperature 98.2 F Temperature 98.2 F Temperature 98.1 F - Labs CBC & Chem 7: 03/21/20 06:08 03/22/20 08:25 Labs: Abnormal lab results 03/22/20 03/22/20 03/23/20 Range/Units 16:35 22:17 13:45 POC Glucose 176 H 175 H 133 H (70-105) mg/dL
--- NOTE | 2020-03-23 17:46 | Progress Note ---
Assessment and Plan Patient resting on 5 litres O2. O2 saturation 90%. No acute respiratory distress. Patient afebrile. No leukocytosis. Chest xray 03/23/20 reported Interval worsening of patchy bilateral airspace disease. Patient finished course of Remdesivir. Patient is on Dexamethasone, S/C Lovenox and famotidine. Antibiotics as per infectious diseases. - Patient Problems (1) Coronavirus infection Current Visit: Yes Status: Acute Plan to address problem: Management as per infectious diseases. (2) Pneumonia Current Visit: Yes Status: Acute Plan to address problem: Antibiotics as per infectious diseases. (3) Hypoxia Current Visit: Yes Status: Acute Plan to address problem: O2 5 litres (4) Diabetes Current Visit: Yes Status: Acute Plan to address problem: Management as per primary care. (5) Essential (primary) hypertension Current Visit: Yes Status: Acute Plan to address problem: Management as per primary care. (6) High grade dysplasia in colonic adenoma Current Visit: No Status: Acute Plan to address problem: Management as per gastroenterology. Subjective Date of service: 03/23/20 Principal diagnosis: Ac hypoxemic resp failure; COVID-19 infxn; Pneumonia; DM II; HTN; GERD Interval history: Patient resting on 5 litres O2. O2 saturation 90%. No acute respiratory distress. Patient afebrile. No leukocytosis. Chest xray 03/23/20 reported Interval worsening of patchy bilateral airspace disease. Patient finished course of Remdesivir. Patient is on Dexamethasone, S/C Lovenox and famotidine. Antibiotics as per infectious diseases. Objective Vital Signs - 12hr 03/23/20 03/23/20 03/23/20 06:18 07:41 13:26 Temperature 98.2 F Pulse Rate 82 Pulse Rate [ 96 H 92 H Anterior Bilateral Throughout] Respiratory 16 Rate Respiratory 18 18 Rate [Anterior Bilateral Throughout] Blood Pressure 120/70 O2 Sat by Pulse 96 95 Oximetry 03/23/20 14:46 Temperature 98.2 F Pulse Rate 99 H Pulse Rate [ Anterior Bilateral Throughout] Respiratory 18 Rate Respiratory Rate [Anterior Bilateral Throughout] Blood Pressure 110/59 O2 Sat by Pulse 94 Oximetry Constitutional: no acute distress, asleep Eyes: non-icteric ENT: oropharynx moist, other (Mallampati 4) Neck: supple, no lymphadenopathy, no JVD Effort: mildly labored Ascultation: Bilateral: diminished breath sounds, rhonchi Percussion: Bilateral: not dull Cardiovascular: regular rate and rhythm Gastrointestinal: normoactive bowel sounds, soft, non-tender, non-distended (protuberant) Integumentary: normal Extremities: no cyanosis, no edema, pulses normal, no ischemia or petechiae Neurologic: normal mental status, non-focal exam, pupils equal and round, motor strength normal and Psychiatric: mood appropriate, affect normal CBC and BMP: 03/21/20 06:08 03/22/20 08:25 ABG, PT/INR, D-dimer: PT/INR, D-dimer D-Dimer 263.81 ng/mlDDU (0-234) H 03/22/20 08:25 Abnormal lab findings: Abnormal Labs 03/18/20 03/18/20 03/18/20 01:10 01:10 02:51 WBC 4.2 L RBC 6.56 H Hct 46.8 H MCV 71 L MCH 23 L RDW Plt Count 94 L [place] % (Auto) 10.7 H Lymph # (Auto) 0.7 L Seg Neutrophils % 72.8 H D-Dimer Potassium 2.9 L* Chloride 96.5 L Carbon Dioxide BUN 21 H Glucose 104 H POC Glucose Calcium 8.2 L Ferritin Lactate Dehydrogenase 383 H C-Reactive Protein 2.50 H Coronavirus (PCR) 03/18/20 03/18/20 03/18/20 02:51 08:08 08:42 WBC RBC Hct MCV MCH RDW Plt Count [place] % (Auto) Lymph # (Auto) Seg Neutrophils % D-Dimer Potassium Chloride Carbon Dioxide BUN Glucose POC Glucose 116 H Calcium Ferritin 608.5 H Lactate Dehydrogenase C-Reactive Protein Coronavirus (PCR) Positive A 03/18/20 03/18/20 03/19/20 12:09 17:43 06:08 WBC RBC 6.24 H Hct MCV 71 L MCH 23 L RDW Plt Count 91 L [place] % (Auto) Lymph # (Auto) Seg Neutrophils % D-Dimer Potassium Chloride Carbon Dioxide BUN Glucose POC Glucose 153 H 152 H Calcium Ferritin Lactate Dehydrogenase C-Reactive Protein Coronavirus (PCR) 03/19/20 03/19/20 03/19/20 06:08 12:43 17:57 WBC RBC Hct MCV MCH RDW Plt Count [place] % (Auto) Lymph # (Auto) Seg Neutrophils % D-Dimer Potassium 3.3 L Chloride Carbon Dioxide 33 H D BUN 24 H Glucose 109 H POC Glucose 128 H 132 H Calcium 7.8 L Ferritin Lactate Dehydrogenase C-Reactive Protein Coronavirus (PCR) 03/19/20 03/20/20 03/20/20 22:41 06:02 06:02 WBC RBC 6.10 H Hct MCV 71 L MCH 23 L RDW Plt Count 103 L [place] % (Auto) Lymph # (Auto) Seg Neutrophils % D-Dimer Potassium Chloride Carbon Dioxide BUN 24 H Glucose 111 H POC Glucose 106 H Calcium 8.0 L Ferritin Lactate Dehydrogenase C-Reactive Protein Coronavirus (PCR) 03/20/20 03/20/20 03/20/20 07:49 07:49 13:18 WBC RBC Hct MCV MCH RDW Plt Count [place] % (Auto) Lymph # (Auto) Seg Neutrophils % D-Dimer Potassium Chloride Carbon Dioxide BUN Glucose 106 H POC Glucose 177 H Calcium Ferritin 531.3 H Lactate Dehydrogenase 454 H C-Reactive Protein 9.10 H Coronavirus (PCR) 03/20/20 03/21/20 03/21/20 17:01 06:08 08:22 WBC RBC 6.19 H Hct MCV 71 L MCH 23 L RDW 15.4 H Plt Count 139 L [place] % (Auto) Lymph # (Auto) Seg Neutrophils % D-Dimer Potassium Chloride Carbon Dioxide BUN Glucose POC Glucose 137 H 122 H Calcium Ferritin Lactate Dehydrogenase C-Reactive Protein Coronavirus (PCR) 03/21/20 03/21/20 03/21/20 12:33 15:56 22:30 WBC RBC Hct MCV MCH RDW Plt Count [place] % (Auto) Lymph # (Auto) Seg Neutrophils % D-Dimer Potassium Chloride Carbon Dioxide BUN Glucose POC Glucose 130 H 167 H 161 H Calcium Ferritin Lactate Dehydrogenase C-Reactive Protein Coronavirus (PCR) 03/22/20 03/22/20 03/22/20 08:25 08:25 08:25 WBC RBC Hct MCV MCH RDW Plt Count [place] % (Auto) Lymph # (Auto) Seg Neutrophils % D-Dimer 263.81 H Potassium Chloride Carbon Dioxide BUN Glucose 109 H POC Glucose Calcium Ferritin 500.0 H Lactate Dehydrogenase 453 H C-Reactive Protein 2.90 H Coronavirus (PCR) 03/22/20 03/22/20 03/22/20 08:52 16:35 22:17 WBC RBC Hct MCV MCH RDW Plt Count [place] % (Auto) Lymph # (Auto) Seg Neutrophils % D-Dimer Potassium Chloride Carbon Dioxide BUN Glucose POC Glucose 107 H 176 H 175 H Calcium Ferritin Lactate Dehydrogenase C-Reactive Protein Coronavirus (PCR) 03/23/20 13:45 WBC RBC Hct MCV MCH RDW Plt Count [place] % (Auto) Lymph # (Auto) Seg Neutrophils % D-Dimer Potassium Chloride Carbon Dioxide BUN Glucose POC Glucose 133 H Calcium Ferritin Lactate Dehydrogenase C-Reactive Protein Coronavirus (PCR) Chest x-ray: report reviewed, image reviewed Additional Studies: CHEST 1 VIEW 03/23/20. INDICATION: SHORTNESS OF BREATH. COMPARISON: 03/18/2020 FINDINGS: Support devices: None. Heart: Normal. Lungs/Pleura: Patchy bilateral pulmonary opacities persist, these have slightly worsened particularly in the right upper lobe. No large effusion, no pneumothorax. IMPRESSION: 1. Interval worsening of patchy bilateral airspace disease. Allied health notes reviewed: nursing
[2020-03-23] MEDS: REMDESIVIR 100 MG in SODIUM CHLORIDE 0.9% 250ML 250 ML IV SCH (21:36)
[2020-03-23] MEDS: SODIUM CHLORIDE 0.9% 50 ML IVPB IV SCH (21:37)
[2020-03-23] MEDS: traZODone 50 MG TAB PO SCH (21:37)
[2020-03-24 06:44] LABS: C-Reactive Protein 1.9 mg/dL (0.00-1.30)
[2020-03-24] MEDS: IPRATROPIUM/ALBUTEROL SULFATE 3 ML AMPUL.NEB IH SCH ×3 (07:24→20:02)
[2020-03-24] MEDS: INSULIN LISPRO 100 UNIT/ML VIAL 3 mL SUB-Q SCH ×4 (09:13→21:54)
[2020-03-24] MEDS: ENOXAPARIN 40 MG/0.4 ML INJ SUB-Q SCH (10:13)
[2020-03-24] MEDS: ZINC SULFATE 220 MG CAP PO SCH (10:13)
[2020-03-24] MEDS: FAMOTIDINE 20 MG TAB PO SCH (10:13)
[2020-03-24] MEDS: ASCORBIC ACID 500 MG TAB PO SCH ×2 (10:13→21:55)
[2020-03-24] MEDS: DEXAMETHASONE 4 MG TAB PO SCH (10:13)
[2020-03-24] MEDS: hydroCHLOROthiazide 25 MG TAB PO SCH (10:14)
--- NOTE | 2020-03-24 11:54 | Progress Note ---
Assessment and Plan Patient Morbidly Obese, resting on 5 litres O2. O2 saturation 94%. No acute respiratory distress. Denies chest pain, shortness of breath or cough. Sitting up in chair. Patient afebrile. No leukocytosis. Chest xray 03/23/20 reported Interval worsening of patchy bilateral airspace disease. Patient finished course of Remdesivir. Patient is on Dexamethasone, S/C Lovenox and famotidine. Antibiotics as per infectious diseases. - Patient Problems (1) Coronavirus infection Current Visit: Yes Status: Acute Plan to address problem: Management as per infectious diseases. (2) Pneumonia Current Visit: Yes Status: Acute Plan to address problem: Antibiotics as per infectious diseases. (3) Hypoxia Current Visit: Yes Status: Acute Plan to address problem: O2 5 litres (4) Diabetes Current Visit: Yes Status: Acute Plan to address problem: Management as per primary care. (5) Essential (primary) hypertension Current Visit: Yes Status: Acute Plan to address problem: Management as per primary care. (6) High grade dysplasia in colonic adenoma Current Visit: No Status: Acute Plan to address problem: Management as per gastroenterology. Subjective Date of service: 03/17/20 Principal diagnosis: Ac hypoxemic resp failure; COVID-19 infxn; Pneumonia; DM II; HTN; GERD Interval history: Patient Morbidly Obese, resting on 5 litres O2. O2 saturation 94%. No acute respiratory distress. Denies chest pain, shortness of breath or cough. Sitting up in chair. Patient afebrile. No leukocytosis. Chest xray 03/23/20 reported Interval worsening of patchy bilateral airspace disease. Patient finished course of Remdesivir. Patient is on Dexamethasone, S/C Lovenox and famotidine. Antibiotics as per infectious diseases. Objective Vital Signs - 12hr 03/24/20 03/24/20 03/24/20 00:00 05:38 07:25 Temperature 97.5 F L Pulse Rate 83 Pulse Rate [ 85 Posterior Bilateral Bases ] Respiratory 20 20 Rate Respiratory 18 Rate [Posterior Bilateral Bases] Blood Pressure 121/75 O2 Sat by Pulse 94 Oximetry 03/24/20 07:26 Temperature Pulse Rate Pulse Rate [ Posterior Bilateral Bases ] Respiratory Rate Respiratory Rate [Posterior Bilateral Bases] Blood Pressure O2 Sat by Pulse 94 Oximetry Constitutional: no acute distress, alert Eyes: non-icteric ENT: oropharynx moist, other (Mallampati 4) Neck: supple, no lymphadenopathy, no JVD Effort: mildly labored Ascultation: Bilateral: diminished breath sounds, rhonchi Percussion: Bilateral: not dull Cardiovascular: regular rate and rhythm Gastrointestinal: normoactive bowel sounds, soft, non-tender, non-distended (protuberant) Integumentary: normal Extremities: no cyanosis, no edema, pulses normal, no ischemia or petechiae Neurologic: normal mental status, non-focal exam, pupils equal and round, motor strength normal and Psychiatric: mood appropriate, affect normal CBC and BMP: 03/21/20 06:08 03/22/20 08:25 ABG, PT/INR, D-dimer: PT/INR, D-dimer D-Dimer 263.81 ng/mlDDU (0-234) H 03/22/20 08:25 Abnormal lab findings: Abnormal Labs 03/18/20 03/18/20 03/18/20 01:10 01:10 02:51 WBC 4.2 L RBC 6.56 H Hct 46.8 H MCV 71 L MCH 23 L RDW Plt Count 94 L [place] % (Auto) 10.7 H Lymph # (Auto) 0.7 L Seg Neutrophils % 72.8 H D-Dimer Potassium 2.9 L* Chloride 96.5 L Carbon Dioxide BUN 21 H Glucose 104 H POC Glucose Calcium 8.2 L Ferritin Lactate Dehydrogenase 383 H C-Reactive Protein 2.50 H Coronavirus (PCR) 03/18/20 03/18/20 03/18/20 02:51 08:08 08:42 WBC RBC Hct MCV MCH RDW Plt Count [place] % (Auto) Lymph # (Auto) Seg Neutrophils % D-Dimer Potassium Chloride Carbon Dioxide BUN Glucose POC Glucose 116 H Calcium Ferritin 608.5 H Lactate Dehydrogenase C-Reactive Protein Coronavirus (PCR) Positive A 03/18/20 03/18/20 03/19/20 12:09 17:43 06:08 WBC RBC 6.24 H Hct MCV 71 L MCH 23 L RDW Plt Count 91 L [place] % (Auto) Lymph # (Auto) Seg Neutrophils % D-Dimer Potassium Chloride Carbon Dioxide BUN Glucose POC Glucose 153 H 152 H Calcium Ferritin Lactate Dehydrogenase C-Reactive Protein Coronavirus (PCR) 03/19/20 03/19/20 03/19/20 06:08 12:43 17:57 WBC RBC Hct MCV MCH RDW Plt Count [place] % (Auto) Lymph # (Auto) Seg Neutrophils % D-Dimer Potassium 3.3 L Chloride Carbon Dioxide 33 H D BUN 24 H Glucose 109 H POC Glucose 128 H 132 H Calcium 7.8 L Ferritin Lactate Dehydrogenase C-Reactive Protein Coronavirus (PCR) 03/19/20 03/20/20 03/20/20 22:41 06:02 06:02 WBC RBC 6.10 H Hct MCV 71 L MCH 23 L RDW Plt Count 103 L [place] % (Auto) Lymph # (Auto) Seg Neutrophils % D-Dimer Potassium Chloride Carbon Dioxide BUN 24 H Glucose 111 H POC Glucose 106 H Calcium 8.0 L Ferritin Lactate Dehydrogenase C-Reactive Protein Coronavirus (PCR) 03/20/20 03/20/20 03/20/20 07:49 07:49 13:18 WBC RBC Hct MCV MCH RDW Plt Count [place] % (Auto) Lymph # (Auto) Seg Neutrophils % D-Dimer Potassium Chloride Carbon Dioxide BUN Glucose 106 H POC Glucose 177 H Calcium Ferritin 531.3 H Lactate Dehydrogenase 454 H C-Reactive Protein 9.10 H Coronavirus (PCR) 03/20/20 03/21/20 03/21/20 17:01 06:08 08:22 WBC RBC 6.19 H Hct MCV 71 L MCH 23 L RDW 15.4 H Plt Count 139 L [place] % (Auto) Lymph # (Auto) Seg Neutrophils % D-Dimer Potassium Chloride Carbon Dioxide BUN Glucose POC Glucose 137 H 122 H Calcium Ferritin Lactate Dehydrogenase C-Reactive Protein Coronavirus (PCR) 03/21/20 03/21/20 03/21/20 12:33 15:56 22:30 WBC RBC Hct MCV MCH RDW Plt Count [place] % (Auto) Lymph # (Auto) Seg Neutrophils % D-Dimer Potassium Chloride Carbon Dioxide BUN Glucose POC Glucose 130 H 167 H 161 H Calcium Ferritin Lactate Dehydrogenase C-Reactive Protein Coronavirus (PCR) 03/22/20 03/22/20 03/22/20 08:25 08:25 08:25 WBC RBC Hct MCV MCH RDW Plt Count [place] % (Auto) Lymph # (Auto) Seg Neutrophils % D-Dimer 263.81 H Potassium Chloride Carbon Dioxide BUN Glucose 109 H POC Glucose Calcium Ferritin 500.0 H Lactate Dehydrogenase 453 H C-Reactive Protein 2.90 H Coronavirus (PCR) 1103/22/20 03/22/20 08:52 16:35 22:17 WBC RBC Hct MCV MCH RDW Plt Count [place] % (Auto) Lymph # (Auto) Seg Neutrophils % D-Dimer Potassium Chloride Carbon Dioxide BUN Glucose POC Glucose 107 H 176 H 175 H Calcium Ferritin Lactate Dehydrogenase C-Reactive Protein Coronavirus (PCR) 03/23/20 03/23/20 03/23/20 13:45 18:27 23:14 WBC RBC Hct MCV MCH RDW Plt Count [place] % (Auto) Lymph # (Auto) Seg Neutrophils % D-Dimer Potassium Chloride Carbon Dioxide BUN Glucose POC Glucose 133 H 156 H 190 H Calcium Ferritin Lactate Dehydrogenase C-Reactive Protein Coronavirus (PCR) 03/24/20 03/24/20 03/24/20 05:03 05:03 09:24 WBC RBC Hct MCV MCH RDW Plt Count [place] % (Auto) Lymph # (Auto) Seg Neutrophils % D-Dimer Potassium Chloride Carbon Dioxide BUN Glucose POC Glucose 155 H Calcium Ferritin 509.0 H Lactate Dehydrogenase 395 H C-Reactive Protein 1.90 H Coronavirus (PCR) Allied health notes reviewed: nursing
--- NOTE | 2020-03-24 13:03 | Progress Note ---
Assessment and Plan Assessment and plan: 03/23: Patient seen and examined today discussed convalescent plasma therapy but he refused. Continue aggressive pulmonary toilet. Show some improvement with nebulizer treatment. Chest x-ray repeated today. Recheck inflammatory markers in a.m. to ensure improvement. COVID19 Pneumonia Hypoxic Respiratory Failure- Acute. Currently on 2 Liters Tachycardia ?deconditioning vs Pulmonary disease contribution Hypokalemia- Replace. Hypertension Morbid Obesity Hypertension Leukopenia presentation Elevated ferritin level secondary to COVID-19 Gastro esophageal reflux DM type 2 Plan Supportive care Continue steroids, Monitor oxygen saturation for possible initiation of Remdesivir and Pulm consult ID consult and Antibiotics recommendations Continue to monitor inflammatory markers Weight loss counselling Accucheck considering steroids as mainstay therapy, currently on low dose sliding scale. Patient on metformin outpatient DVT/GI prophy Plan of care discussed with patient Encouraged ambulation in the room and ambient oxygen monitoring with daily 6 mins walk with nursing or RT History Interval history: I have seen and examined the patient at the bedside today Patient's chart and medications reviewed Patient complains of generalized weakness and shortness of breath Vital signs noted Hospitalist Physical - Constitutional Vitals: Temp Pulse Resp BP Pulse Ox 97.5 F L 85 18 121/75 94 03/24/20 05:38 03/24/20 07:25 03/24/20 07:25 03/24/20 05:38 03/24/20 07:26 General appearance: Present: mild distress, well-nourished, obese (Morbidly obese) - EENT Eyes: Present: PERRL, EOM intact - Neck Neck: Present: supple, normal ROM - Respiratory Respiratory effort: normal Respiratory: bilateral: diminished, rhonchi, negative: rales, wheezing - Cardiovascular Rhythm: regular Heart Sounds: Present: S1 & S2 - Extremities Extremities: no ischemia, No edema - Abdominal General gastrointestinal: soft, non-tender, non-distended, normal bowel sounds - Integumentary Integumentary: Present: clear, warm - Psychiatric Psychiatric: appropriate mood/affect, agitated - Neurologic Neurologic: moves all extremities HEART Score - HEART Score Troponin: Troponin T < 0.010 ng/mL (0.00-0.029) 03/18/20 09:14 Results - Labs CBC & Chem 7: 03/21/20 06:08 03/22/20 08:25 Labs: Laboratory Last Values WBC 5.6 K/mm3 (4.5-11.0) 03/21/20 06:08 RBC 6.19 M/mm3 (3.65-5.03) H 03/21/20 06:08 Hgb 14.2 gm/dl (11.8-15.2) 03/21/20 06:08 Hct 44.2 % (35.5-45.6) 03/21/20 06:08 MCV 71 fl (84-94) L 03/21/20 06:08 MCH 23 pg (28-32) L 03/21/20 06:08 MCHC 32 % (32-34) 03/21/20 06:08 RDW 15.4 % (13.2-15.2) H 03/21/20 06:08 Plt Count 139 K/mm3 (140-440) L 03/21/20 06:08 Lymph % (Auto) 16.1 % (13.4-35.0) 03/18/20 01:10 [place] % (Auto) 10.7 % (0.0-7.3) H 03/18/20 01:10 Eos % (Auto) 0.0 % (0.0-4.3) 03/18/20 01:10 Baso % (Auto) 0.4 % (0.0-1.8) 03/18/20 01:10 Lymph # (Auto) 0.7 K/mm3 (1.2-5.4) L 03/18/20 01:10 [place] # (Auto) 0.4 K/mm3 (0.0-0.8) 03/18/20 01:10 Eos # (Auto) 0.0 K/mm3 (0.0-0.4) 03/18/20 01:10 Baso # (Auto) 0.0 K/mm3 (0.0-0.1) 03/18/20 01:10 Seg Neutrophils % 72.8 % (40.0-70.0) H 03/18/20 01:10 Seg Neutrophils # 3.0 K/mm3 (1.8-7.7) 03/18/20 01:10 D-Dimer 263.81 ng/mlDDU (0-234) H 03/22/20 08:25 Sodium 141 mmol/L (137-145) 03/20/20 06:02 Potassium 3.7 mmol/L (3.6-5.0) 03/20/20 06:02 Chloride 102.8 mmol/L (98-107) 03/20/20 06:02 Carbon Dioxide 30 mmol/L (22-30) 03/20/20 06:02 Anion Gap 12 mmol/L 03/20/20 06:02 BUN 24 mg/dL (9-20) H 03/20/20 06:02 Creatinine 0.9 mg/dL (0.8-1.3) 03/20/20 06:02 Estimated GFR > 60 ml/min 03/20/20 06:02 BUN/Creatinine Ratio 27 % 03/20/20 06:02 Glucose 109 mg/dL (75-100) H 03/22/20 08:25 POC Glucose 97 mg/dL (70-105) 03/24/20 11:55 Hemoglobin A1c 5.7 % (4-6) 03/18/20 04:38 Calcium 8.0 mg/dL (8.4-10.2) L 03/20/20 06:02 Ferritin 509.0 ng/mL (30.0-300.0) H 03/24/20 05:03 Total Bilirubin 1.10 mg/dL (0.1-1.2) 03/18/20 01:10 AST 35 units/L (5-40) 03/18/20 01:10 ALT 13 units/L (7-56) 03/18/20 01:10 Alkaline Phosphatase 63 units/L (35-129) 03/18/20 01:10 Lactate Dehydrogenase 395 units/L (91-180) H 03/24/20 05:03 Troponin T < 0.010 ng/mL (0.00-0.029) 03/18/20 09:14 C-Reactive Protein 1.90 mg/dL (0.00-1.30) H 03/24/20 05:03 Total Protein 7.9 g/dL (6.3-8.2) 03/18/20 01:10 Albumin 3.9 g/dL (3.9-5) 03/18/20 01:10 Albumin/Globulin Ratio 1.0 % 03/18/20 01:10 Procalcitonin < 0.05 ng/mL (<0.15) 03/18/20 02:51 Urine Color Sandra (Yellow) 03/19/20 02:38 Urine Turbidity Clear (Clear) 03/19/20 02:38 Urine pH 6.0 (5.0-7.0) 03/19/20 02:38 Ur Specific [place] 1.027 (1.003-1.030) 03/19/20 02:38 Urine Protein >500 mg/dL (Negative) 03/19/20 02:38 Urine Glucose (UA) Neg mg/dL (Negative) 03/19/20 02:38 Urine Ketones Neg mg/dL (Negative) 03/19/20 02:38 Urine Blood Lg (Negative) 03/19/20 02:38 Urine Nitrite Neg (Negative) 03/19/20 02:38 Urine Bilirubin Neg (Negative) 03/19/20 02:38 Urine Urobilinogen 4.0 mg/dL (<2.0) 03/19/20 02:38 Ur Leukocyte Esterase Neg (Negative) 03/19/20 02:38 Urine WBC (Auto) 3.0 /HPF (0.0-6.0) 03/19/20 02:38 Urine RBC (Auto) 1.0 /HPF (0.0-6.0) 03/19/20 02:38 U Epithel Cells (Auto) 2.0 /HPF (0-13.0) 03/19/20 02:38 Urine Mucus Few /HPF 03/19/20 02:38 Coronavirus (PCR) Positive (Negative) A 03/18/20 08:42 SARS-CoV-2 IgG Ab Nonreactive (NonReactive) 03/21/20 13:39 Perez/IV: Voiding Method Urinal IV Catheter Type [Left INT / Saline Lock Antecubital] Active Medications - Current Medications Current Medications: Generic Name Dose Route Start Last Admin Trade Name Freq PRN Reason Stop Dose Admin Acetaminophen 650 mg 03/19/20 22:22 03/19/20 23:04 Tylenol PO 650 mg Q6H PRN Administration Fever >100 Al Hydrox/Mg Hydrox/Simethicone 30 ml 03/18/20 04:27 Alum-Mag Hydrox-Simeth [phone]/5ml PO Q4H PRN Indigestion Albuterol 2.5 mg 03/21/20 12:00 Proventil IH Q4HRT PRN Shortness Of Breath Albuterol/Ipratropium 1 ampul 03/23/20 08:00 03/24/20 07:24 Duoneb *Not For Prn Use* IH 1 ampul TIDRT RUTH Administration Ascorbic Acid 1,000 mg 03/20/20 22:00 03/24/20 10:13 Vitamin C PO 1,000 mg BID RUTH Administration Dexamethasone 6 mg 03/19/20 10:00 03/24/20 10:13 Decadron PO 03/28/20 10:01 6 mg DAILY RUTH Administration Enoxaparin Sodium 40 mg 03/18/20 10:00 03/24/20 10:13 Enoxaparin SUB-Q 40 mg QDAY@1000 [facility] Administration Protocol Famotidine 20 mg 03/21/20 10:00 03/24/20 10:13 Pepcid PO 20 mg QDAY RUTH Administration Hydrochlorothiazide 25 mg 03/21/20 15:00 03/24/20 10:14 Hctz PO 25 mg QDAY RUTH Administration Insulin Human Lispro 0 unit 03/18/20 07:30 03/24/20 12:51 Humalog SUB-Q Not Given ACHS [facility] Protocol Labetalol HCl 10 mg 03/18/20 04:44 Labetalol IV Q6HR PRN Hypertension Ondansetron HCl 4 mg 03/18/20 04:27 Zofran IV Q8H PRN Nausea And Vomiting Sodium Chloride 10 ml 03/21/20 10:30 03/24/20 10:16 Sodium Chloride Flush Syringe 10 Ml IV 10 ml BID RUTH Administration Tramadol HCl 50 mg 03/18/20 04:29 03/18/20 22:32 Ultram PO 50 mg Q6H PRN Administration Pain, Moderate (4-6) Trazodone HCl 50 mg 03/18/20 22:00 03/23/20 21:37 Desyrel PO 50 mg QHS RUTH Administration Zinc Sulfate 220 mg 03/20/20 19:00 03/24/20 10:13 Zinc Sulfate PO 220 mg QDAY RUTH Administration
--- NOTE | 2020-03-24 15:17 | Progress Note ---
Assessment and Plan Cultures: Blood culture no growth today SARS CoV2 PCR positive, IgG negative Assessment: 54 years old male with history of hypertension and diabetes mellitus, admitted on due to 2-day history of fever, body aches, and shortness of breath, cough, chest pain, patient exposed to COVID-19 at work: #Sepsis: Secondary to COVID-19 pneumonia. #Severe COVID pneumonia: D-dimer normal, ferritin elevated. SARS-CoV-2 IgG is negative, patient may benefit from convalescent plasma, but patient refused. Completed remdesivir #Acute hypoxemic respiratory failure: remains on oxygen by nasal cannula #MIGUEL: from COVID, improving. Recommendations: -Continue dexamethasone 6 mg IV/PO daily for 10 days, day 6 -Completed remdesivir -Monitor inflammatory markers - ferritin, Ddimer, CRP, LDH -Continue anticoagulation per System Protocol -Home oxygen eval prior to discharge Marquita Gabriel MD, FACP [facility], [facility] ([facility]) O: [phone] F: [phone] Subjective Date of service: 03/24/20 Principal diagnosis: Ac hypoxemic resp failure; COVID-19 infxn; Pneumonia; DM II; HTN; GERD Interval history: Afebrile. Remains on oxygen at 3-4 L by nasal cannula. Objective - Exam Narrative Exam: Physical Exam (reviewed in chart due to PPE conservation and minimize risk of transmission) Constitutional: limited due to PPE conservation strategy Head, Ears, Nose: limited due to PPE conservation strategy Eyes: limited due to PPE conservation strategy Neck: limited due to PPE conservation strategy Oral: limited due to PPE conservation strategy Cardiovascular: limited due to PPE conservation strategy Respiratory: limited due to PPE conservation strategy GI: limited due to PPE conservation strategy Musculoskeletal: limited due to PPE conservation strategy Skin: limited due to PPE conservation strategy Hem/Lymphatic: limited due to PPE conservation strategy Psych: limited due to PPE conservation strategy Neurological: limited due to PPE conservation strategy - Constitutional Vitals: Vital Signs Temp Pulse Resp BP Pulse Ox 98.0 F 94 H 20 112/68 94 03/24/20 12:20 03/24/20 13:24 03/24/20 13:24 03/24/20 12:20 03/24/20 12:20 Temperature -Last 24 Hours Temperature 98.0 F Temperature 97.5 F Temperature 97.5 F Temperature 98.1 F - Labs CBC & Chem 7: 03/21/20 06:08 03/22/20 08:25 Labs: Abnormal lab results 03/23/20 03/23/20 03/24/20 Range/Units 18:27 23:14 05:03 POC Glucose 156 H 190 H (70-105) mg/dL Ferritin 509.0 H (30.0-300.0) ng/mL Lactate Dehydrogenase (91-180) units/L C-Reactive Protein (0.00-1.30) mg/dL 03/24/20 03/24/20 Range/Units 05:03 09:24 POC Glucose 155 H (70-105) mg/dL Ferritin (30.0-300.0) ng/mL Lactate Dehydrogenase 395 H (91-180) units/L C-Reactive Protein 1.90 H (0.00-1.30) mg/dL
[2020-03-24] MEDS: traZODone 50 MG TAB PO SCH (21:55)
[2020-03-25] MEDS: IPRATROPIUM/ALBUTEROL SULFATE 3 ML AMPUL.NEB IH SCH ×3 (08:35→21:05)
[2020-03-25] MEDS: INSULIN LISPRO 100 UNIT/ML VIAL 3 mL SUB-Q SCH ×4 (09:00→22:35)
[2020-03-25] MEDS: FAMOTIDINE 20 MG TAB PO SCH (10:01)
[2020-03-25] MEDS: hydroCHLOROthiazide 25 MG TAB PO SCH (10:01)
[2020-03-25] MEDS: ASCORBIC ACID 500 MG TAB PO SCH ×2 (10:01→21:05)
[2020-03-25] MEDS: DEXAMETHASONE 4 MG TAB PO SCH (10:01)
[2020-03-25] MEDS: ENOXAPARIN 40 MG/0.4 ML INJ SUB-Q SCH (10:01)
[2020-03-25] MEDS: ZINC SULFATE 220 MG CAP PO SCH (10:01)
--- NOTE | 2020-03-25 13:58 | Progress Note ---
Assessment and Plan Cultures: Blood culture no growth today SARS CoV2 PCR positive, IgG negative Assessment: 54 years old male with history of hypertension and diabetes mellitus, admitted on due to 2-day history of fever, body aches, and shortness of breath, cough, chest pain, patient exposed to COVID-19 at work: #Sepsis: Secondary to COVID-19 pneumonia. #Severe COVID pneumonia: D-dimer normal, ferritin elevated. SARS-CoV-2 IgG is negative, patient may benefit from convalescent plasma, but patient refused. Completed remdesivir #Acute hypoxemic respiratory failure: remains on oxygen by nasal cannula. #MIGUEL: from COVID, improved. Recommendations: -Continue dexamethasone 6 mg IV/PO daily for 10 days, day 7 -agree with plans for discharge with home oxygen ID will sign off. Please call with questions. Marquita Gabriel MD, FACP [facility] ([facility]) O: [phone] F: [phone] Subjective Date of service: 03/25/20 Principal diagnosis: Ac hypoxemic resp failure; COVID-19 infxn; Pneumonia; DM II; HTN; GERD Interval history: Afebrile. Remains on oxygen Objective - Exam Narrative Exam: Physical Exam (reviewed in chart due to PPE conservation and minimize risk of transmission) Constitutional: limited due to PPE conservation strategy Head, Ears, Nose: limited due to PPE conservation strategy Eyes: limited due to PPE conservation strategy Neck: limited due to PPE conservation strategy Oral: limited due to PPE conservation strategy Cardiovascular: limited due to PPE conservation strategy Respiratory: limited due to PPE conservation strategy GI: limited due to PPE conservation strategy Musculoskeletal: limited due to PPE conservation strategy Skin: limited due to PPE conservation strategy Hem/Lymphatic: limited due to PPE conservation strategy Psych: limited due to PPE conservation strategy Neurological: limited due to PPE conservation strategy - Constitutional Vitals: Vital Signs Temp Pulse Resp BP Pulse Ox 97.6 F 71 20 127/86 98 03/25/20 04:21 03/25/20 04:21 03/25/20 04:21 03/25/20 04:21 03/25/20 04:21 Temperature -Last 24 Hours Temperature 97.6 F Temperature 98.1 F - Labs CBC & Chem 7: 03/21/20 06:08 03/22/20 08:25 Labs: Abnormal lab results 03/24/20 03/24/20 03/25/20 Range/Units 17:10 21:14 12:45 POC Glucose 203 H 130 H 106 H (70-105) mg/dL
--- NOTE | 2020-03-25 15:45 | Progress Note ---
Assessment and Plan Patient Morbidly Obese , awake. O2 requirements comong down. Patient is on 4 litres O2. O2 saturation 96%. No acute respiratory distress. Denies chest pain, shortness of breath or cough. Sitting up in chair. Patient afebrile. No leukocytosis. Chest xray 03/23/20 reported Interval worsening of patchy bilateral airspace disease. Patient finished course of Remdesivir. Patient is on Dexamethasone, S/C Lovenox and famotidine. Patients D dimer 218. Antibiotics as per infectious diseases. - Patient Problems (1) Coronavirus infection Current Visit: Yes Status: Acute Plan to address problem: Management as per infectious diseases. (2) Pneumonia Current Visit: Yes Status: Acute Plan to address problem: Antibiotics as per infectious diseases. (3) Hypoxia Current Visit: Yes Status: Acute Plan to address problem: O2 4 litres (4) Diabetes Current Visit: Yes Status: Acute Plan to address problem: Management as per primary care. (5) Essential (primary) hypertension Current Visit: Yes Status: Acute Plan to address problem: Management as per primary care. (6) High grade dysplasia in colonic adenoma Current Visit: No Status: Acute Plan to address problem: Management as per gastroenterology. Subjective Date of service: 03/25/20 Principal diagnosis: Ac hypoxemic resp failure; COVID-19 infxn; Pneumonia; DM II; HTN; GERD Interval history: Patient Morbidly Obese , awake. O2 requirements comong down. Patient is on 4 litres O2. O2 saturation 96%. No acute respiratory distress. Denies chest pain, shortness of breath or cough. Sitting up in chair. Patient afebrile. No leukocytosis. Chest xray 03/23/20 reported Interval worsening of patchy bilateral airspace disease. Patient finished course of Remdesivir. Patient is on Dexamethasone, S/C Lovenox and famotidine. Patients D dimer 218 Antibiotics as per infectious diseases. Objective Vital Signs - 12hr 03/25/20 03/25/20 03/25/20 04:21 13:20 14:25 Temperature 97.6 F Pulse Rate 71 Pulse Rate [ 94 H Anterior Bilateral Throughout] Pulse Rate [ 96 H Posterior Bilateral Bases ] Pulse Rate [ 92 H Posterior Bilateral Throughout] Respiratory 20 Rate Respiratory 18 Rate [Anterior Bilateral Throughout] Respiratory 18 Rate [Posterior Bilateral Bases] Respiratory 18 Rate [Posterior Bilateral Throughout] Blood Pressure 127/86 O2 Sat by Pulse 98 96 Oximetry Constitutional: no acute distress, alert, other (Sitting up in chair.) Eyes: non-icteric ENT: oropharynx moist, other (Mallampati 4) Neck: supple, no lymphadenopathy, no JVD Effort: mildly labored Ascultation: Bilateral: diminished breath sounds, rhonchi Percussion: Bilateral: not dull Cardiovascular: regular rate and rhythm Gastrointestinal: normoactive bowel sounds, soft, non-tender, non-distended (protuberant) Integumentary: normal Extremities: no cyanosis, no edema, pulses normal, no ischemia or petechiae Neurologic: normal mental status, non-focal exam, pupils equal and round, motor strength normal and Psychiatric: mood appropriate, affect normal CBC and BMP: 03/21/20 06:08 03/22/20 08:25 ABG, PT/INR, D-dimer: PT/INR, D-dimer D-Dimer 218.23 ng/mlDDU (0-234) 03/24/20 19:22 Abnormal lab findings: Abnormal Labs 03/18/20 03/18/20 03/18/20 01:10 01:10 02:51 WBC 4.2 L RBC 6.56 H Hct 46.8 H MCV 71 L MCH 23 L RDW Plt Count 94 L [place] % (Auto) 10.7 H Lymph # (Auto) 0.7 L Seg Neutrophils % 72.8 H D-Dimer Potassium 2.9 L* Chloride 96.5 L Carbon Dioxide BUN 21 H Glucose 104 H POC Glucose Calcium 8.2 L Ferritin Lactate Dehydrogenase 383 H C-Reactive Protein 2.50 H Coronavirus (PCR) 03/18/20 03/18/20 03/18/20 02:51 08:08 08:42 WBC RBC Hct MCV MCH RDW Plt Count [place] % (Auto) Lymph # (Auto) Seg Neutrophils % D-Dimer Potassium Chloride Carbon Dioxide BUN Glucose POC Glucose 116 H Calcium Ferritin 608.5 H Lactate Dehydrogenase C-Reactive Protein Coronavirus (PCR) Positive A 03/18/20 03/18/20 03/19/20 12:09 17:43 06:08 WBC RBC 6.24 H Hct MCV 71 L MCH 23 L RDW Plt Count 91 L [place] % (Auto) Lymph # (Auto) Seg Neutrophils % D-Dimer Potassium Chloride Carbon Dioxide BUN Glucose POC Glucose 153 H 152 H Calcium Ferritin Lactate Dehydrogenase C-Reactive Protein Coronavirus (PCR) 03/19/20 03/19/20 03/19/20 06:08 12:43 17:57 WBC RBC Hct MCV MCH RDW Plt Count [place] % (Auto) Lymph # (Auto) Seg Neutrophils % D-Dimer Potassium 3.3 L Chloride Carbon Dioxide 33 H D BUN 24 H Glucose 109 H POC Glucose 128 H 132 H Calcium 7.8 L Ferritin Lactate Dehydrogenase C-Reactive Protein Coronavirus (PCR) 03/19/20 03/20/20 03/20/20 22:41 06:02 06:02 WBC RBC 6.10 H Hct MCV 71 L MCH 23 L RDW Plt Count 103 L [place] % (Auto) Lymph # (Auto) Seg Neutrophils % D-Dimer Potassium Chloride Carbon Dioxide BUN 24 H Glucose 111 H POC Glucose 106 H Calcium 8.0 L Ferritin Lactate Dehydrogenase C-Reactive Protein Coronavirus (PCR) 03/20/20 03/20/20 03/20/20 07:49 07:49 13:18 WBC RBC Hct MCV MCH RDW Plt Count [place] % (Auto) Lymph # (Auto) Seg Neutrophils % D-Dimer Potassium Chloride Carbon Dioxide BUN Glucose 106 H POC Glucose 177 H Calcium Ferritin 531.3 H Lactate Dehydrogenase 454 H C-Reactive Protein 9.10 H Coronavirus (PCR) 03/20/20 03/21/20 03/21/20 17:01 06:08 08:22 WBC RBC 6.19 H Hct MCV 71 L MCH 23 L RDW 15.4 H Plt Count 139 L [place] % (Auto) Lymph # (Auto) Seg Neutrophils % D-Dimer Potassium Chloride Carbon Dioxide BUN Glucose POC Glucose 137 H 122 H Calcium Ferritin Lactate Dehydrogenase C-Reactive Protein Coronavirus (PCR) 03/21/20 03/21/20 03/21/20 12:33 15:56 22:30 WBC RBC Hct MCV MCH RDW Plt Count [place] % (Auto) Lymph # (Auto) Seg Neutrophils % D-Dimer Potassium Chloride Carbon Dioxide BUN Glucose POC Glucose 130 H 167 H 161 H Calcium Ferritin Lactate Dehydrogenase C-Reactive Protein Coronavirus (PCR) 03/22/20 03/22/20 03/22/20 08:25 08:25 08:25 WBC RBC Hct MCV MCH RDW Plt Count [place] % (Auto) Lymph # (Auto) Seg Neutrophils % D-Dimer 263.81 H Potassium Chloride Carbon Dioxide BUN Glucose 109 H POC Glucose Calcium Ferritin 500.0 H Lactate Dehydrogenase 453 H C-Reactive Protein 2.90 H Coronavirus (PCR) 03/22/20 03/22/20 03/22/20 08:52 16:35 22:17 WBC RBC Hct MCV MCH RDW Plt Count [place] % (Auto) Lymph # (Auto) Seg Neutrophils % D-Dimer Potassium Chloride Carbon Dioxide BUN Glucose POC Glucose 107 H 176 H 175 H Calcium Ferritin Lactate Dehydrogenase C-Reactive Protein Coronavirus (PCR) 03/23/20 03/23/20 03/23/20 13:45 18:27 23:14 WBC RBC Hct MCV MCH RDW Plt Count [place] % (Auto) Lymph # (Auto) Seg Neutrophils % D-Dimer Potassium Chloride Carbon Dioxide BUN Glucose POC Glucose 133 H 156 H 190 H Calcium Ferritin Lactate Dehydrogenase C-Reactive Protein Coronavirus (PCR) 03/24/20 03/24/20 03/24/20 05:03 05:03 09:24 WBC RBC Hct MCV MCH RDW Plt Count [place] % (Auto) Lymph # (Auto) Seg Neutrophils % D-Dimer Potassium Chloride Carbon Dioxide BUN Glucose POC Glucose 155 H Calcium Ferritin 509.0 H Lactate Dehydrogenase 395 H C-Reactive Protein 1.90 H Coronavirus (PCR) 03/24/20 03/24/20 03/25/20 17:10 21:14 12:45 WBC RBC Hct MCV MCH RDW Plt Count [place] % (Auto) Lymph # (Auto) Seg Neutrophils % D-Dimer Potassium Chloride Carbon Dioxide BUN Glucose POC Glucose 203 H 130 H 106 H Calcium Ferritin Lactate Dehydrogenase C-Reactive Protein Coronavirus (PCR) Allied health notes reviewed: nursing
[2020-03-25 15:49] LABS: Vitamin D, 25-OH, D2 <4 ng/mL
--- NOTE | 2020-03-25 18:40 | Progress Note ---
Assessment and Plan Assessment and plan: Assessment and plan COVID19 Pneumonia Hypoxic Respiratory Failure- Acute. Currently on 2 Liters Tachycardia ?deconditioning vs Pulmonary disease contribution Hypokalemia- Replace. Hypertension Morbid Obesity Hypertension Leukopenia presentation Elevated ferritin level secondary to COVID-19 Gastro esophageal reflux DM type 2 Plan Supportive care Continue dexamethasone for total 10 days Completed remdesivir Patient refused convalescent plasma Evaluate for home oxygen Recommend to sleep prone position Ambulate as tolerated inside the room Continue to monitor inflammatory markers Advised diet modification exercise as tolerated and weight reduction when medically stable DVT prophylaxis ID evaluation recommendations noted and appreciated Possible discharge in 1 to 2 days if stable Plan of care reviewed with the patient and his nurse 03/23: Patient seen and examined today discussed convalescent plasma therapy but he refused. Continue aggressive pulmonary toilet. Show some improvement with nebulizer treatment. Chest x-ray repeated today. Recheck inflammatory markers in a.m. to ensure improvement. 03/25; patient continues to have shortness of breath, requiring 4 L of nasal cannula oxygen Advised weight reduction, home oxygen evaluation, 6-minute walk test History Interval history: I have seen and examined the patient at the bedside this morning Patient's chart and medications reviewed Isolation precautions and PPE protocol strictly followed Patient feels slightly better anxious to go home Hospitalist Physical - Constitutional Vitals: Temp Pulse Resp BP Pulse Ox 97.6 F 94 H 18 127/86 96 03/25/20 04:21 03/25/20 14:25 03/25/20 14:25 03/25/20 04:21 03/25/20 13:20 General appearance: Present: mild distress, well-nourished, obese (Morbidly obese) - EENT Eyes: Present: PERRL, EOM intact - Neck Neck: Present: supple, normal ROM - Respiratory Respiratory effort: normal Respiratory: bilateral: diminished, rhonchi, negative: rales, wheezing - Cardiovascular Rhythm: regular Heart Sounds: Present: S1 & S2 - Extremities Extremities: no ischemia, No edema - Abdominal General gastrointestinal: soft, non-tender, non-distended, normal bowel sounds - Integumentary Integumentary: Present: clear, warm - Psychiatric Psychiatric: appropriate mood/affect, cooperative - Neurologic Neurologic: moves all extremities HEART Score - HEART Score Troponin: Troponin T < 0.010 ng/mL (0.00-0.029) 03/18/20 09:14 Results - Labs CBC & Chem 7: 03/21/20 06:08 03/22/20 08:25 Labs: Laboratory Last Values WBC 5.6 K/mm3 (4.5-11.0) 03/21/20 06:08 RBC 6.19 M/mm3 (3.65-5.03) H 03/21/20 06:08 Hgb 14.2 gm/dl (11.8-15.2) 03/21/20 06:08 Hct 44.2 % (35.5-45.6) 03/21/20 06:08 MCV 71 fl (84-94) L 03/21/20 06:08 MCH 23 pg (28-32) L 03/21/20 06:08 MCHC 32 % (32-34) 03/21/20 06:08 RDW 15.4 % (13.2-15.2) H 03/21/20 06:08 Plt Count 139 K/mm3 (140-440) L 03/21/20 06:08 Lymph % (Auto) 16.1 % (13.4-35.0) 03/18/20 01:10 [place] % (Auto) 10.7 % (0.0-7.3) H 03/18/20 01:10 Eos % (Auto) 0.0 % (0.0-4.3) 03/18/20 01:10 Baso % (Auto) 0.4 % (0.0-1.8) 03/18/20 01:10 Lymph # (Auto) 0.7 K/mm3 (1.2-5.4) L 03/18/20 01:10 [place] # (Auto) 0.4 K/mm3 (0.0-0.8) 03/18/20 01:10 Eos # (Auto) 0.0 K/mm3 (0.0-0.4) 03/18/20 01:10 Baso # (Auto) 0.0 K/mm3 (0.0-0.1) 03/18/20 01:10 Seg Neutrophils % 72.8 % (40.0-70.0) H 03/18/20 01:10 Seg Neutrophils # 3.0 K/mm3 (1.8-7.7) 03/18/20 01:10 D-Dimer 218.23 ng/mlDDU (0-234) 03/24/20 19:22 Sodium 141 mmol/L (137-145) 03/20/20 06:02 Potassium 3.7 mmol/L (3.6-5.0) 03/20/20 06:02 Chloride 102.8 mmol/L (98-107) 03/20/20 06:02 Carbon Dioxide 30 mmol/L (22-30) 03/20/20 06:02 Anion Gap 12 mmol/L 03/20/20 06:02 BUN 24 mg/dL (9-20) H 03/20/20 06:02 Creatinine 0.9 mg/dL (0.8-1.3) 03/20/20 06:02 Estimated GFR > 60 ml/min 03/20/20 06:02 BUN/Creatinine Ratio 27 % 03/20/20 06:02 Glucose 109 mg/dL (75-100) H 03/22/20 08:25 POC Glucose 132 mg/dL (70-105) H 03/25/20 18:15 Hemoglobin A1c 5.7 % (4-6) 03/18/20 04:38 Calcium 8.0 mg/dL (8.4-10.2) L 03/20/20 06:02 Ferritin 509.0 ng/mL (30.0-300.0) H 03/24/20 05:03 Total Bilirubin 1.10 mg/dL (0.1-1.2) 03/18/20 01:10 AST 35 units/L (5-40) 03/18/20 01:10 ALT 13 units/L (7-56) 03/18/20 01:10 Alkaline Phosphatase 63 units/L (35-129) 03/18/20 01:10 Lactate Dehydrogenase 395 units/L (91-180) H 03/24/20 05:03 Troponin T < 0.010 ng/mL (0.00-0.029) 03/18/20 09:14 C-Reactive Protein 1.90 mg/dL (0.00-1.30) H 03/24/20 05:03 Total Protein 7.9 g/dL (6.3-8.2) 03/18/20 01:10 Albumin 3.9 g/dL (3.9-5) 03/18/20 01:10 Albumin/Globulin Ratio 1.0 % 03/18/20 01:10 25-OH Vitamin D Total <4 ng/mL (30-100) L 03/18/20 04:38 25-Hydroxy Vitamin D2 <4 ng/mL 03/18/20 04:38 25-Hydroxy Vitamin D3 <4 ng/mL 03/18/20 04:38 Procalcitonin < 0.05 ng/mL (<0.15) 03/18/20 02:51 Urine Color [place] (Yellow) 03/19/20 02:38 Urine Turbidity Clear (Clear) 03/19/20 02:38 Urine pH 6.0 (5.0-7.0) 03/19/20 02:38 Ur Specific [place] 1.027 (1.003-1.030) 03/19/20 02:38 Urine Protein >500 mg/dL (Negative) 03/19/20 02:38 Urine Glucose (UA) Neg mg/dL (Negative) 03/19/20 02:38 Urine Ketones Neg mg/dL (Negative) 03/19/20 02:38 Urine Blood Lg (Negative) 03/19/20 02:38 Urine Nitrite Neg (Negative) 03/19/20 02:38 Urine Bilirubin Neg (Negative) 03/19/20 02:38 Urine Urobilinogen 4.0 mg/dL (<2.0) 03/19/20 02:38 Ur Leukocyte Esterase Neg (Negative) 03/19/20 02:38 Urine WBC (Auto) 3.0 /HPF (0.0-6.0) 03/19/20 02:38 Urine RBC (Auto) 1.0 /HPF (0.0-6.0) 03/19/20 02:38 U Epithel Cells (Auto) 2.0 /HPF (0-13.0) 03/19/20 02:38 Urine Mucus Few /HPF 03/19/20 02:38 Coronavirus (PCR) Positive (Negative) A 03/18/20 08:42 SARS-CoV-2 IgG Ab Nonreactive (NonReactive) 03/21/20 13:39 Perez/IV: Voiding Method Urinal IV Catheter Type [Left INT / Saline Lock Antecubital] Active Medications - Current Medications Current Medications: Generic Name Dose Route Start Last Admin Trade Name Freq PRN Reason Stop Dose Admin Acetaminophen 650 mg 03/19/20 22:22 03/19/20 23:04 Tylenol PO 650 mg Q6H PRN Administration Fever >100 Al Hydrox/Mg Hydrox/Simethicone 30 ml 03/18/20 04:27 Alum-Mag Hydrox-Simeth 500-509-58ts/5ml PO Q4H PRN Indigestion Albuterol 2.5 mg 03/21/20 12:00 Proventil IH Q4HRT PRN Shortness Of Breath Albuterol/Ipratropium 1 ampul 03/23/20 08:00 03/25/20 14:34 Duoneb *Not For Prn Use* IH 1 ampul TIDRT RUTH Administration Ascorbic Acid 1,000 mg 03/20/20 22:00 03/25/20 10:01 Vitamin C PO 1,000 mg BID RUTH Administration Dexamethasone 6 mg 03/19/20 10:00 03/25/20 10:01 Decadron PO 03/28/20 10:01 6 mg DAILY RUTH Administration Enoxaparin Sodium 40 mg 03/18/20 10:00 03/25/20 10:01 Enoxaparin SUB-Q 40 mg QDAY@1000 RUTH Administration Protocol Famotidine 20 mg 03/21/20 10:00 03/25/20 10:01 Pepcid PO 20 mg QDAY RUTH Administration Hydrochlorothiazide 25 mg 03/21/20 15:00 03/25/20 10:01 Hctz PO 25 mg QDAY RUTH Administration Insulin Human Lispro 0 unit 03/18/20 07:30 03/25/20 12:17 Humalog SUB-Q Not Given ACHS [facility] [place] Protocol Labetalol HCl 10 mg 03/18/20 04:44 Labetalol IV Q6HR PRN Hypertension Ondansetron HCl 4 mg 03/18/20 04:27 Zofran IV Q8H PRN Nausea And Vomiting Sodium Chloride 10 ml 03/21/20 10:30 03/25/20 10:02 Sodium Chloride Flush Syringe 10 Ml IV 10 ml BID RUTH Administration Tramadol HCl 50 mg 03/18/20 04:29 03/18/20 22:32 Ultram PO 50 mg Q6H PRN Administration Pain, Moderate (4-6) Trazodone HCl 50 mg 03/18/20 22:00 03/24/20 21:55 Desyrel PO 50 mg QHS RUTH Administration Zinc Sulfate 220 mg 03/20/20 19:00 03/25/20 10:01 Zinc Sulfate PO 220 mg QDAY RUTH Administration Nutrition/Malnutrition Assess - Dietary Evaluation Nutrition/Malnutrition Findings: Nutrition Notes Start: 03/25/20 11:29 Freq: Status: Active Protocol: Document 03/25/20 11:29 BONITA (Rec: 03/25/20 11:38 BONITA [id number]) Co-Sign 03/25/20 11:29 MK Nutrition Notes Need for Assessment generated from: LOS Initial or Follow up Assessment Current Diagnosis Diabetes,Sepsis,Hypertension Other Pertinent Diagnosis COVID-19 (+), pneu, hypoxia Current Diet Regular Labs/Tests 03/20 BUN 24 Ca 8 Pertinent Medications Decadron Zinc sulfate Vitamin C Height 6 ft 1 in Weight 141.5 kg Usual Body Weight 150 kg [place] Body Weight (kg) 83.63 BMI 41.1 Intake Prior to Admission Good Weight change and time frame 5.7% wt loss, unknown Weight Status Obese Subjective/Other Information Screened for LOS. Pt reports eating 50% meals and states his appetite "comes and goes". Burn Absent Trauma Absent GI Symptoms None Food Allergy Yes Current % PO Fair (50-74%) Minimum of two criteria No physical signs of malnutrition #1 Nutrition Diagnosis Inadequate oral intake Etiology inconsistent appetite As Evidenced by Signs and Symptoms pt consuming 50% meals Is patient on ventilator? No Is Patient Ambulatory and/or Out of Bed Yes REE-([facility]-ambulatory/OOB) [ 3008.044 NUTR.[id number]] Kcal/Kg value to use for calculation 17 Approximate Energy Requirements Using 2406 kcal/Kg Calculation Used for Recommendations Kcal/kg Additional Notes Pro: 90-113 g (0.8-1 g/kg AdjBW, 112.5) Fluid: 1 ml/kcal Nutrition Intervention Change Diet Order: Cardiac/Consistent CHO Add Supplement/Snack (indicate name/kcal Glucerna BID /protein ) Provides kCal: 440 Provides Protein (gm) 20 Goal #1 Meet at least 75% energy and protein needs via PO/ONS intakes Anticipated Discharge Needs: Cardiac/Consistent CHO diet Follow-Up By: 03/27/20 Additional Comments F/U for intakes and ONS tolerance
[2020-03-25] MEDS: traZODone 50 MG TAB PO SCH (21:05)
[2020-03-26] MEDS: INSULIN LISPRO 100 UNIT/ML VIAL 3 mL SUB-Q SCH ×3 (08:03→18:22)
[2020-03-26] MEDS: IPRATROPIUM/ALBUTEROL SULFATE 3 ML AMPUL.NEB IH SCH ×3 (08:06→21:05)
[2020-03-26] MEDS: ENOXAPARIN 40 MG/0.4 ML INJ SUB-Q SCH (10:17)
[2020-03-26] MEDS: ZINC SULFATE 220 MG CAP PO SCH (10:18)
[2020-03-26] MEDS: hydroCHLOROthiazide 25 MG TAB PO SCH (10:18)
[2020-03-26] MEDS: DEXAMETHASONE 4 MG TAB PO SCH (10:18)
[2020-03-26] MEDS: FAMOTIDINE 20 MG TAB PO SCH (10:18)
[2020-03-26] MEDS: ASCORBIC ACID 500 MG TAB PO SCH ×2 (10:18→21:07)
--- NOTE | 2020-03-26 20:38 | Progress Note ---
Assessment and Plan Assessment and plan: Assessment and plan COVID19 Pneumonia Hypoxic Respiratory Failure- Acute. Currently on 2 Liters Tachycardia ?deconditioning vs Pulmonary disease contribution Hypokalemia- Replace. Hypertension Morbid Obesity Hypertension Leukopenia presentation Elevated ferritin level secondary to COVID-19 Gastro esophageal reflux DM type 2 Plan Supportive care Continue dexamethasone for total 10 days Completed remdesivir Patient refused convalescent plasma Evaluate for home oxygen Recommend to sleep prone position Ambulate as tolerated inside the room Continue to monitor inflammatory markers Advised diet modification exercise as tolerated and weight reduction when medically stable DVT prophylaxis ID evaluation recommendations noted and appreciated Possible discharge in 1 to 2 days if stable Plan of care reviewed with the patient and his nurse 03/23: Patient seen and examined today discussed convalescent plasma therapy but he refused. Continue aggressive pulmonary toilet. Show some improvement with nebulizer treatment. Chest x-ray repeated today. Recheck inflammatory markers in a.m. to ensure improvement. 03/25; patient continues to have shortness of breath, requiring 4 L of nasal cannula oxygen Advised weight reduction, home oxygen evaluation, 6-minute walk test History Interval history: I have seen and examined the patient at the bedside Isolation precautions PPE protocol strictly followed Patient feels better anxious to go home Vital signs noted Patient has already oxygen set up at home Hospitalist Physical - Constitutional Vitals: Temp Pulse Resp BP Pulse Ox 98.5 F 80 18 103/66 98 03/26/20 17:05 03/26/20 20:36 03/26/20 20:36 03/26/20 17:05 03/26/20 20:37 General appearance: Present: mild distress, well-nourished, obese (Morbidly obese) - EENT Eyes: Present: PERRL, EOM intact - Neck Neck: Present: supple, normal ROM - Respiratory Respiratory effort: normal Respiratory: bilateral: diminished, rhonchi, negative: rales, wheezing - Cardiovascular Rhythm: regular Heart Sounds: Present: S1 & S2 - Extremities Extremities: no ischemia, No edema - Abdominal General gastrointestinal: soft, non-tender, non-distended - Integumentary Integumentary: Present: clear, warm - Psychiatric Psychiatric: appropriate mood/affect, cooperative - Neurologic Neurologic: CNII-XII intact, moves all extremities HEART Score - HEART Score Troponin: Troponin T < 0.010 ng/mL (0.00-0.029) 03/18/20 09:14 Results - Labs CBC & Chem 7: 03/21/20 06:08 03/22/20 08:25 Labs: Laboratory Last Values WBC 5.6 K/mm3 (4.5-11.0) 03/21/20 06:08 RBC 6.19 M/mm3 (3.65-5.03) H 03/21/20 06:08 Hgb 14.2 gm/dl (11.8-15.2) 03/21/20 06:08 Hct 44.2 % (35.5-45.6) 03/21/20 06:08 MCV 71 fl (84-94) L 03/21/20 06:08 MCH 23 pg (28-32) L 03/21/20 06:08 MCHC 32 % (32-34) 03/21/20 06:08 RDW 15.4 % (13.2-15.2) H 03/21/20 06:08 Plt Count 139 K/mm3 (140-440) L 03/21/20 06:08 Lymph % (Auto) 16.1 % (13.4-35.0) 03/18/20 01:10 Benson % (Auto) 10.7 % (0.0-7.3) H 03/18/20 01:10 Eos % (Auto) 0.0 % (0.0-4.3) 03/18/20 01:10 Baso % (Auto) 0.4 % (0.0-1.8) 03/18/20 01:10 Lymph # (Auto) 0.7 K/mm3 (1.2-5.4) L 03/18/20 01:10 Benson # (Auto) 0.4 K/mm3 (0.0-0.8) 03/18/20 01:10 Eos # (Auto) 0.0 K/mm3 (0.0-0.4) 03/18/20 01:10 Baso # (Auto) 0.0 K/mm3 (0.0-0.1) 03/18/20 01:10 Seg Neutrophils % 72.8 % (40.0-70.0) H 03/18/20 01:10 Seg Neutrophils # 3.0 K/mm3 (1.8-7.7) 03/18/20 01:10 D-Dimer 218.23 ng/mlDDU (0-234) 03/24/20 19:22 Sodium 141 mmol/L (137-145) 03/20/20 06:02 Potassium 3.7 mmol/L (3.6-5.0) 03/20/20 06:02 Chloride 102.8 mmol/L (98-107) 03/20/20 06:02 Carbon Dioxide 30 mmol/L (22-30) 03/20/20 06:02 Anion Gap 12 mmol/L 03/20/20 06:02 BUN 24 mg/dL (9-20) H 03/20/20 06:02 Creatinine 0.9 mg/dL (0.8-1.3) 03/20/20 06:02 Estimated GFR > 60 ml/min 03/20/20 06:02 BUN/Creatinine Ratio 27 % 03/20/20 06:02 Glucose 109 mg/dL (75-100) H 03/22/20 08:25 POC Glucose 105 mg/dL (70-105) 03/26/20 12:13 Hemoglobin A1c 5.7 % (4-6) 03/18/20 04:38 Calcium 8.0 mg/dL (8.4-10.2) L 03/20/20 06:02 Ferritin 509.0 ng/mL (30.0-300.0) H 03/24/20 05:03 Total Bilirubin 1.10 mg/dL (0.1-1.2) 03/18/20 01:10 AST 35 units/L (5-40) 03/18/20 01:10 ALT 13 units/L (7-56) 03/18/20 01:10 Alkaline Phosphatase 63 units/L (35-129) 03/18/20 01:10 Lactate Dehydrogenase 395 units/L (91-180) H 03/24/20 05:03 Troponin T < 0.010 ng/mL (0.00-0.029) 03/18/20 09:14 C-Reactive Protein 1.90 mg/dL (0.00-1.30) H 03/24/20 05:03 Total Protein 7.9 g/dL (6.3-8.2) 03/18/20 01:10 Albumin 3.9 g/dL (3.9-5) 03/18/20 01:10 Albumin/Globulin Ratio 1.0 % 03/18/20 01:10 25-OH Vitamin D Total <4 ng/mL (30-100) L 03/18/20 04:38 25-Hydroxy Vitamin D2 <4 ng/mL 03/18/20 04:38 25-Hydroxy Vitamin D3 <4 ng/mL 03/18/20 04:38 Procalcitonin < 0.05 ng/mL (<0.15) 03/18/20 02:51 Urine Color Sandra (Yellow) 03/19/20 02:38 Urine Turbidity Clear (Clear) 03/19/20 02:38 Urine pH 6.0 (5.0-7.0) 03/19/20 02:38 Ur Specific [place] 1.027 (1.003-1.030) 03/19/20 02:38 Urine Protein >500 mg/dL (Negative) 03/19/20 02:38 Urine Glucose (UA) Neg mg/dL (Negative) 03/19/20 02:38 Urine Ketones Neg mg/dL (Negative) 03/19/20 02:38 Urine Blood Lg (Negative) 03/19/20 02:38 Urine Nitrite Neg (Negative) 03/19/20 02:38 Urine Bilirubin Neg (Negative) 03/19/20 02:38 Urine Urobilinogen 4.0 mg/dL (<2.0) 03/19/20 02:38 Ur Leukocyte Esterase Neg (Negative) 03/19/20 02:38 Urine WBC (Auto) 3.0 /HPF (0.0-6.0) 03/19/20 02:38 Urine RBC (Auto) 1.0 /HPF (0.0-6.0) 03/19/20 02:38 U Epithel Cells (Auto) 2.0 /HPF (0-13.0) 03/19/20 02:38 Urine Mucus Few /HPF 03/19/20 02:38 Coronavirus (PCR) Positive (Negative) A 03/18/20 08:42 SARS-CoV-2 IgG Ab Nonreactive (NonReactive) 03/21/20 13:39 Perez/IV: Voiding Method Urinal IV Catheter Type [Left INT / Saline Lock Antecubital] Active Medications - Current Medications Current Medications: Generic Name Dose Route Start Last Admin Trade Name Freq PRN Reason Stop Dose Admin Acetaminophen 650 mg 03/19/20 22:22 03/19/20 23:04 Tylenol PO 650 mg Q6H PRN Administration Fever >100 Al Hydrox/Mg Hydrox/Simethicone 30 ml 03/18/20 04:27 Alum-Mag Hydrox-Simeth 175-343-78mb/5ml PO Q4H PRN Indigestion Albuterol 2.5 mg 03/21/20 12:00 Proventil IH Q4HRT PRN Shortness Of Breath Albuterol/Ipratropium 1 ampul 03/23/20 08:00 03/26/20 13:52 Duoneb *Not For Prn Use* IH 1 ampul TIDRT RUTH Administration Ascorbic Acid 1,000 mg 03/20/20 22:00 03/26/20 10:18 Vitamin C PO 1,000 mg BID RUTH Administration Dexamethasone 6 mg 03/19/20 10:00 03/26/20 10:18 Decadron PO 03/28/20 10:01 6 mg DAILY [facility] Administration Enoxaparin Sodium 40 mg 03/18/20 10:00 03/26/20 10:17 Enoxaparin SUB-Q 40 mg QDAY@1000 [facility] Administration Protocol Famotidine 20 mg 03/21/20 10:00 03/26/20 10:18 Pepcid PO 20 mg QDAY [facility] Administration Hydrochlorothiazide 25 mg 03/21/20 15:00 03/26/20 10:18 Hctz PO Not Given QDAY [facility] Insulin Human Lispro 0 unit 03/18/20 07:30 03/26/20 18:22 Humalog SUB-Q Not Given ACHS [facility] Protocol Labetalol HCl 10 mg 03/18/20 04:44 Labetalol IV Q6HR PRN Hypertension Ondansetron HCl 4 mg 03/18/20 04:27 Zofran IV Q8H PRN Nausea And Vomiting Sodium Chloride 10 ml 03/21/20 10:30 03/26/20 10:18 Sodium Chloride Flush Syringe 10 Ml IV 10 ml BID RUTH Administration Tramadol HCl 50 mg 03/18/20 04:29 03/18/20 22:32 Ultram PO 50 mg Q6H PRN Administration Pain, Moderate (4-6) Trazodone HCl 50 mg 03/18/20 22:00 03/25/20 21:05 Desyrel PO 50 mg QHS RUTH Administration Zinc Sulfate 220 mg 03/20/20 19:00 03/26/20 10:18 Zinc Sulfate PO 220 mg QDAY RUTH Administration Nutrition/Malnutrition Assess - Dietary Evaluation Nutrition/Malnutrition Findings: Nutrition Notes Start: 03/25/20 11:29 Freq: Status: Active Protocol: Document 03/25/20 11:29 BONITA (Rec: 03/25/20 11:38 BONITA [id number]) Co-Sign 03/25/20 11:29 MK Nutrition Notes Need for Assessment generated from: LOS Initial or Follow up Assessment Current Diagnosis Diabetes,Sepsis,Hypertension Other Pertinent Diagnosis COVID-19 (+), pneu, hypoxia Current Diet Regular Labs/Tests 03/20 BUN 24 Ca 8 Pertinent Medications Decadron Zinc sulfate Vitamin C Height 6 ft 1 in Weight 141.5 kg Usual Body Weight 150 kg Jarratt Body Weight (kg) 83.63 BMI 41.1 Intake Prior to Admission Good Weight change and time frame 5.7% wt loss, unknown Weight Status Obese Subjective/Other Information Screened for LOS. Pt reports eating 50% meals and states his appetite "comes and goes". Burn Absent Trauma Absent GI Symptoms None Food Allergy Yes Current % PO Fair (50-74%) Minimum of two criteria No physical signs of malnutrition #1 Nutrition Diagnosis Inadequate oral intake Etiology inconsistent appetite As Evidenced by Signs and Symptoms pt consuming 50% meals Is patient on ventilator? No Is Patient Ambulatory and/or Out of Bed Yes REE-([facility]-ambulatory/OOB) [ 3008.044 NUTR.[id number]] Kcal/Kg value to use for calculation 17 Approximate Energy Requirements Using 2406 kcal/Kg Calculation Used for Recommendations Kcal/kg Additional Notes Pro: 90-113 g (0.8-1 g/kg AdjBW, 112.5) Fluid: 1 ml/kcal Nutrition Intervention Change Diet Order: Cardiac/Consistent CHO Add Supplement/Snack (indicate name/kcal Glucerna BID /protein ) Provides kCal: 440 Provides Protein (gm) 20 Goal #1 Meet at least 75% energy and protein needs via PO/ONS intakes Anticipated Discharge Needs: Cardiac/Consistent CHO diet Follow-Up By: 03/27/20 Additional Comments F/U for intakes and ONS tolerance
[2020-03-26] MEDS: traZODone 50 MG TAB PO SCH (21:07)
[2020-03-27] MEDS: INSULIN LISPRO 100 UNIT/ML VIAL 3 mL SUB-Q SCH ×3 (00:12→14:46)
[2020-03-27] MEDS: IPRATROPIUM/ALBUTEROL SULFATE 3 ML AMPUL.NEB IH SCH (07:30)
[2020-03-27 07:39] VITALS: BP 120/77
[2020-03-27] MEDS: ASCORBIC ACID 500 MG TAB PO SCH (09:57)
[2020-03-27] MEDS: FAMOTIDINE 20 MG TAB PO SCH (09:57)
[2020-03-27] MEDS: ENOXAPARIN 40 MG/0.4 ML INJ SUB-Q SCH (09:57)
[2020-03-27] MEDS: ZINC SULFATE 220 MG CAP PO SCH (09:57)
[2020-03-27] MEDS: DEXAMETHASONE 4 MG TAB PO SCH (09:57)
[2020-03-27] MEDS: hydroCHLOROthiazide 25 MG TAB PO SCH (09:57)
--- NOTE | 2020-03-27 11:04 | Discharge Summary ---
Providers - Providers Date of Admission: 03/18/20 07:38 Date of discharge: 03/27/20 Attending physician: JULIOCESAR DELACRUZ 03/18/20 03:39 Consult to Physician [CONS] Routine Comment: Consulting Provider: SURYA VEGAS Physician Instructions: Reason For Exam: suspected covid 03/19/20 13:46 Consult to Physician [CONS] Routine Comment: Consulting Provider: DALY GODOY Physician Instructions: Reason For Exam: respiratory failure Primary care physician: INTERN BRAND Hospitalization Condition: Stable Disposition: DC-01 TO HOME OR SELFCARE Time spent for discharge: 35 min Core Measure Documentation - Palliative Care Palliative Care/ Comfort Measures: Not Applicable - Core Measures Any of the following diagnoses?: none Exam - Constitutional Vitals: Temp Pulse Resp BP Pulse Ox 97.9 F 70 18 120/77 95 03/27/20 07:06 03/27/20 07:30 03/27/20 07:30 03/27/20 07:06 03/27/20 10:00 Plan Activity: advance as tolerated Additional Instructions: Home oxygen 2 to 3 L as needed. Strictly follow Covid 19 precautions and protocols as informed by the discharge nurse. If you have worsening symptoms contact MD or go to emergency room. Diet modification ,exercise as tolerated and weight reduction when you are medically stable Follow up with: JASON LAZARO MD [Primary Care Provider] - 3-5 Days STEVEN LOPEZ MD [Staff Physician] - 7 Days Prescriptions: hydroCHLOROthiazide [HCTZ] 25 mg PO QDAY #30 tablet Metformin HCl 500 mg PO DAILY #30 Famotidine [Pepcid] 20 mg PO QDAY #14 tablet
[2020-03-27] MEDS ORDERED: ALBUTEROL 8.5 GM MDI INHALATION IH PRN (11:44)
== END 2020-03-27 14:20 | disposition home or self-care (01) | DRG 871 ==
LOC: ED 22:51 → 3A 03-18 03:39 → OBSVTOIN 03-18 07:38 → 3A 03-18 13:05
PROVIDERS: ADMIT Internal Medicine Geriatric Medicine; ATTEND Internal Medicine
PROC: 3E0234Z Introduction of Serum, Toxoid and Vaccine into Muscle, Percutaneous Approach (ICD-10-PCS; principal; 2020-03-18)
PROC: XW033E5 Introduction of Remdesivir Anti-infective into Peripheral Vein, Percutaneous Approach, New Technology Group 5 (ICD-10-PCS; 2020-03-19)
DX: A41.89 Other specified sepsis (principal); U07.1 COVID-19; J96.01 Acute respiratory failure with hypoxia; J12.89 Other viral pneumonia; Z68.41 Body mass index [BMI] 40.0-44.9, adult; E87.6 Hypokalemia; D69.6 Thrombocytopenia, unspecified; E11.9 Type 2 diabetes mellitus without complications; I10 Essential (primary) hypertension; E66.01 Morbid (severe) obesity due to excess calories; D72.819 Decreased white blood cell count, unspecified; K21.9 Gastro-esophageal reflux disease without esophagitis; Z91.041 Radiographic dye allergy status; Z91.013 Allergy to seafood; Z79.899 Other long term (current) drug therapy; Z90.49 Acquired absence of other specified parts of digestive tract; Z23 Encounter for immunization
CPT/HCPCS: 36415; 71045; 80048; 80053; 81001; 82306; 82728; 82947; 82962; 83036; 83615; 84145; 84484; 85025; 85027; 85379; 86140; 87040; 90732; 93005; 94640; 94644; 94760; 96365; 96372; 96375; G0378; J0456; J0696; J1650; J7050; J8540; U0003